=== PATIENT | female | born 1990 | race Caucasian/White ===

== ENCOUNTER 2020-03-14 13:55 | Outpatient (RCR) | payer BC, SELFPAY ==
[2020-03-14 14:45] LABS: Beta HCG Quantitative < 2.39 mIU/ML
== END 2020-06-05 23:59 | disposition home or self-care (01) ==
LOC: ANHLAB 13:55
PROVIDERS: Visit Provider Obstetrics & Gynecology
DX: O26.851 Spotting complicating pregnancy, first trimester (principal); Z3A.01 Less than 8 weeks gestation of pregnancy
CPT/HCPCS: 36415; 84702

== ENCOUNTER → 2020-12-20 13:42 | Outpatient (CLI) | payer BC, SELFPAY ==
--- NOTE | ~2020-12-20 | US_ITS ---
EXAMINATION: US OB transvaginal DATE: 12/20/2020 14:10 INDICATION: First trimester dating TECHNIQUE: Real-time pelvic transabdominal and transvaginal ultrasound was performed. COMPARISON: None. FINDINGS: The uterus measures 7.7 x 3.7 x 4.9 cm. There is an intrauterine gestational sac. The mean sac diameter is 1 cm , which correlates with an estimated gestational age of 5 weeks and 1 day(s) (+ /-) 3 day(s) with an estimated delivery date of 08/21/2021. A yolk sac is identified. The pole is not yet seen. The right ovary measures 2.7 x 1.4 x 2.4 cm. The left ovary measures 2.5 x 1.0 x 1.9 cm. There is nor mal vascular flow in the ovaries. There is no free fluid in the pelvis. IMPRESSION: 1. Intrauterine gestational sac with an estimated gestational age of 5 weeks and 1 day(s) (+/-) 3 day (s) and an estimated delivery date of 08/21/2021 based on mean sac diameter. pole not yet visuali zed, likely due to early gestation. Reviewed, dictated and finalized at location A. IMPRESSION: 1. Intrauterine gestational sac with an estimated gestational age of 5 weeks an d 1 day(s) (+/-) 3 day(s) and an estimated delivery date of 08/21/2021 based on m karli sac diameter. pole not yet visualized, likely due to early gestation.
== END ==
PROVIDERS: Visit Provider Obstetrics & Gynecology
DX: Z34.91 Encounter for supervision of normal pregnancy, unspecified, first trimester (principal); Z3A.01 Less than 8 weeks gestation of pregnancy
CPT/HCPCS: 76817

== ENCOUNTER → 2020-12-29 14:48 | Outpatient (CLI) | payer BC, SELFPAY ==
--- NOTE | ~2020-12-29 | US_ITS ---
EXAMINATION: US OB transvaginal EXAM DATE: 12/29/2020 15:13 INDICATION: , check viability. 1st trimester. TECHNIQUE: Pelvic obstetrical transabdominal sonogram was performed by a technologist. There are mu ltiple grayscale and Doppler images available for interpretation. Comparison is made to prior examina tion from 12/20/2020. FINDINGS: Uterus measures 8.4 x 4.3 x 5.6 cm. There is intrauterine gestation sac. pole with heart rate confirmed at 152 beats per minute. The 8 mm crown-rump length corresponds to estimated ge stational age by ultrasound of 6 weeks 5 days. Yolk sac is identified. There is no sonographic georgi dence of subchorionic hemorrhage. Right ovary morphologically normal, left not visualized. IMPRESSION: Early live intrauterine gestation, age by CRL 6 weeks 5 days. Reviewed, dictated and finalized at location A.
== END ==
PROVIDERS: Visit Provider Nurse Practitioner
DX: Z36.9 Encounter for antenatal screening, unspecified (principal); Z3A.01 Less than 8 weeks gestation of pregnancy
CPT/HCPCS: 76817

== ENCOUNTER 2021-06-21 15:41 | Outpatient (CLI) | payer BC, SELFPAY ==
[2021-06-21 16:03] VITALS: BP 145/90; PULSE 114
[2021-06-21 16:13] VITALS: TEMP 37.5
[2021-06-21 16:13] LABS: Basophils Percent Auto 0.3 % (0.2-1.2); Eosinophils Absolute Auto 0.1 K/mm3 (0-0.3); Eosinophils Percent Auto 0.7 % (0-4.4); Hematocrit 40.7 % (37.0-47.0); Hemoglobin 13.6 g/dL (12.0-15.0); Immature Granulocyte Absolute 0.12 K/mm3 (0.00-0.031); Immature Granulocyte Percent A 0.9 % (0-0.5); Lymphocytes Absolute Auto 2.09 K/mm3 (0.9-3.2); Mean Corpuscular HGB Conc 33.4 g/dl (32-36); Mean Corpuscular Hemoglobin 28.9 pg (26-34); Mean Corpuscular Volume 86.6 fl (80-100); Mean Platelet Volume 10.6 fl (7.4-10.4); Monocytes Absolute Auto 1.2 K/mm3 (0.1-0.6); Monocytes Percent Auto 8.4 % (2.6-8.5); Neutrophils Absolute Auto 10.4 K/mm3 (1.3-6.7); Neutrophils Percent Auto 74.7 % (45.5-73.1); Platelet Count Result 225 k/mm3 (150-375); Red Cell Distribution Width 13.6 % (11.5-14.5)
[2021-06-21 16:16] VITALS: BP 148/81; PULSE 99
[2021-06-21 16:20] LABS: Creatinine Urine 18.9 mg/dL; Total Protein Urine Random 13 mg/dL; Ur Ttl Prot Creatinine Ratio 0.69 mg/mg (0-0.20)
[2021-06-21 16:22] LABS: Add Urine Microscopic? YES; Appearance Urine Cloudy (Clear); Bacteria Urine 1+ /hpf; Bilirubin Urine Negative (Negative); Blood Urine Negative (Negative); Color Urine Straw (Yellow); Glucose Urine UA Negative (Negative); Ketones Urine Negative (Negative); Leukocyte Esterase Ur Trace LEU/UL (NEGATIVE); Nitrate Urine Negative (Negative); Protein Urine Negative (Negative); RBC Urine 0-2 /hpf (0-2); Squamous Epithelial Cell Urine Occasional /hpf (Few); Urobilinogen Urine Negative mg/dL (<2.0); WBC Urine 0-3 /hpf (0-3)
[2021-06-21 16:25] LABS: Alanine Aminotransferase 38 U/L (4-35); Albumin Level 3.8 g/dL (3.5-5.1); Alkaline Phosphatase 77 U/L (38-126); Anion Gap 10 mmol/L (8-16); Aspartate Amino Transferase 33 U/L (14-36); Bilirubin,Total 0.4 mg/dL (0.2-1.3); Blood Urea Nitrogen 6 mg/dL (7-17); Calcium 9.1 mg/dL (8.4-10.2); Carbon Dioxide 24 mmol/L (22-30); Chloride 102 mmol/L (98-107); Estimated Glomerular Filt Rate > 60; Glucose 94 mg/dL (65-110); Potassium 3.9 mmol/L (3.4-5.0); Sodium 136 mmol/L (137-145); Uric Acid 4.2 mg/dL (2.5-7.5)
[2021-06-21 16:31] VITALS: BP 141/77; PULSE 94
[2021-06-21 16:42] LABS: Specific Grav Ur 1.003 (1.001-1.035)
[2021-06-21 16:46] VITALS: BP 147/72; PULSE 96
--- NOTE | 2021-06-21 16:51 | PC.NURSE ---
called,read labs and bp's. Orders received for 24hr urine and discharge home on bedrest.
[2021-06-21 16:57] VITALS: BP 145/90; PULSE 114
== END 2021-06-21 17:16 | disposition home or self-care (01) ==
LOC: ANHOBOP 15:47 → ANHOBPP 15:49
PROVIDERS: Visit Provider Obstetrics & Gynecology
DX: O16.3 Unspecified maternal hypertension, third trimester (principal); Z3A.31 31 weeks gestation of pregnancy
CPT/HCPCS: 36415; 59025; 80053; 81001; 82570; 84156; 84550; 85025; 87086; 99199

== ENCOUNTER 2021-06-22 16:42 | Outpatient (NON) | payer BC, SELFPAY ==
[2021-06-22 16:54] VITALS: BMI 38.7
[2021-06-22 17:27] LABS: Collection Time Urine 24 HOURS; Total Volume 24 Hour Urine 3300 ml
[2021-06-22 17:33] LABS: Patient Weight 240 Lbs; Specific Gravity Ur 1.015
[2021-06-22 18:02] LABS: Creatinine Clearance Urine 201.8 ml/min (75-125); Creatinine Urine 65.8 mg/dL; Total Protein Urine 24 Hr 363 mg/24hr (28-141); Total Protein Urine Random 11 mg/dL
== END 2021-06-22 16:43 | disposition home or self-care (01) ==
PROVIDERS: Visit Provider Obstetrics & Gynecology
DX: Z34.91 Encounter for supervision of normal pregnancy, unspecified, first trimester (principal); Z3A.01 Less than 8 weeks gestation of pregnancy
CPT/HCPCS: 81050; 82575; 84156

== ENCOUNTER 2021-07-08 07:22 | Inpatient (IN) | payer BC, SELFPAY ==
[2021-07-08] VITALS (148 sets, daily range): BP systolic 101–152; BP diastolic 52–105; PULSE 85–141; RESP 18; TEMP 36.8–37.4; O2SAT 95–100; BMI 39.6
[2021-07-08 08:31] LABS: Basophils Percent Auto 0.2 % (0.2-1.2); Eosinophils Absolute Auto 0.1 K/mm3 (0-0.3); Eosinophils Percent Auto 0.6 % (0-4.4); Hematocrit 38.1 % (37.0-47.0); Immature Granulocyte Absolute 0.08 K/mm3 (0.00-0.031); Immature Granulocyte Percent A 0.6 % (0-0.5); Lymphocytes Percent Auto 10.3 % (18.3-44.2); Mean Corpuscular HGB Conc 34.1 g/dl (32-36); Mean Corpuscular Hemoglobin 29.3 pg (26-34); Mean Platelet Volume 10.7 fl (7.4-10.4); Monocytes Absolute Auto 0.8 K/mm3 (0.1-0.6); Monocytes Percent Auto 6.5 % (2.6-8.5); Neutrophils Absolute Auto 10.3 K/mm3 (1.3-6.7); Neutrophils Percent Auto 81.8 % (45.5-73.1); Platelet Count Result 196 k/mm3 (150-375); Red Blood Count 4.43 M/mm3 (4.2-5.4); Red Cell Distribution Width 13.4 % (11.5-14.5); White Blood Count 12.6 K/mm3 (4.5-10.0)
[2021-07-08] MEDS: LACTATED RINGERS 1,000 ML 125 ML IV CONT ×2 (08:40→20:35)
[2021-07-08] MEDS: AMPICILLIN 2 GM/NS 100 ML 2 GM/100 ML BAG IVPB (08:40)
[2021-07-08 08:48] LABS: Alanine Aminotransferase 24 U/L (4-35); Albumin Level 3.5 g/dL (3.5-5.1); Alkaline Phosphatase 103 U/L (38-126); Anion Gap 8 mmol/L (8-16); Aspartate Amino Transferase 25 U/L (14-36); Bilirubin,Total 0.2 mg/dL (0.2-1.3); Blood Urea Nitrogen 4 mg/dL (7-17); Calcium 8.8 mg/dL (8.4-10.2); Carbon Dioxide 21 mmol/L (22-30); Chloride 105 mmol/L (98-107); Estimated CRCL calculation 170 ml/min; Estimated Glomerular Filt Rate > 60; Glucose 120 mg/dL (65-110); Potassium 3.9 mmol/L (3.4-5.0); Sodium 134 mmol/L (137-145); Uric Acid 4.3 mg/dL (2.5-7.5)
--- NOTE | 2021-07-08 09:10 | LDADM ---
This patient, Mague Veras, was admitted to Labor/Delivery/Recovery 104 on 07/08/21 at 07:22. Plans for labor, pain management and were discussed with patient. Patient/family oriented to hospital policies and general routines including ID bracelet, bed and alarms, pain management, procedures, bathroom and other care routines, personal items, smoking policy, room service/diet and guest tray routines, security routines, call light and visiting hours. Patient/Family are encouraged to report perceived risks to care and to ask questions if they do not understand what they are told or what they should do. See OBIX for further documentation.
[2021-07-08] MEDS: BETAMETHASONE SOD PHOS/ACETATE 30 MG/5 ML VIAL 12 MG IM (11:31)
--- NOTE | 2021-07-08 11:32 | WPDOBADMIT ---
Obstetrics - Admit Note Admission Note: record reviewed. No pertinent additions to the history and/or any subsequent changes in the physical findings that are not consistent with the expected course of the were found. Patient admitted SROM clear fluid on 07/08/21. Reviewed with patient prematurity and risk of infection with rupture. Patient agrees to steroids with Induction s/p dose. Will give antibiotics for GBS prophylaxis. Additions to the history and/or subsequent changes in the physical findings follow. None.
[2021-07-08] MEDS: AMPICILLIN 1 GM/NS 50 ML 1 GM/50 ML BAG IVPB ×3 (12:29→21:32)
[2021-07-08] MEDS: OXYTOCIN 30 UNITS/NS 500 ML 30 UNITS/500 ML BAG 6 UNITS IV CONT (12:29)
[2021-07-08 13:13] LABS: EDCOVIDSCREEN Negative (Negative)
--- NOTE | 2021-07-08 15:34 | WPDANESEPP ---
Anes - Eval Pre Procedure Procedure: Labor Epidural Date/Time: 07/08/21 15:34 Surgeon: Anjelica Preop Diagnosis: Labor Pain Pre Op Diagnosis: Leaking Patient Data Age: 31 Gender: F Height: 1.68 m Weight: 111.3 kg Last Vital Signs Temp 37.1 C 07/08/21 15:29 Pulse 110 H 07/08/21 15:30 BP 149/63 H 07/08/21 15:30 Pulse Ox 97 07/08/21 15:30 Allergies Allergy/AdvReac Type Severity Reaction Status Date / Time No Known Allergies Allergy Verified 07/08/21 08:35 Home Medications Medication Instructions Recorded Confirmed Type ergocalciferol (vitamin D2) 50,000 unit PO WEEKLY 07/08/21 07/08/21 History Laboratory Tests 07/08/21 07/08/21 07/08/21 08:20 08:20 08:20 WBC 12.6 K/mm3 H K/mm3 (4.5-10.0) RBC 4.43 M/mm3 M/mm3 (4.2-5.4) Hgb 13.0 g/dL g/dL (12.0-15.0) Hct 38.1 % % (37.0-47.0) MCV 86.0 fl fl (80-100) MCH 29.3 pg pg (26-34) MCHC 34.1 g/dl g/dl (32-36) RDW 13.4 % % (11.5-14.5) Plt Count 196 k/mm3 k/mm3 (150-375) MPV 10.7 fl H fl (7.4-10.4) Immature Gran % (Auto) 0.6 % H % (0-0.5) Neut % (Auto) 81.8 % H % (45.5-73.1) Lymph % (Auto) 10.3 % L % (18.3-44.2) [place]dwell % (Auto) 6.5 % % (2.6-8.5) Eos % (Auto) 0.6 % % (0-4.4) Baso % (Auto) 0.2 % % (0.2-1.2) Lymph # (Auto) 1.30 K/mm3 K/mm3 (0.9-3.2) [place]dwell # (Auto) 0.8 K/mm3 H K/mm3 (0.1-0.6) Eos # (Auto) 0.1 K/mm3 K/mm3 (0-0.3) Baso # (Auto) 0.0 K/mm3 K/mm3 (0.0-0.1) Abs Immat Gran (auto) 0.08 K/mm3 H K/mm3 (0.00-0.031) Absolute Neuts (auto) 10.3 K/mm3 H K/mm3 (1.3-6.7) Absolute Nucleated RBC 0.0 K/mm3 K/mm3 (0.0-0.012) Nucleated RBC % 0.0 % % (0.0-0.2) Sodium Potassium Chloride Carbon Dioxide Anion Gap BUN Creatinine Estim Creat Clear Calc Estimated GFR Glucose Uric Acid Cancelled Calcium Total Bilirubin AST ALT Alkaline Phosphatase Total Protein Albumin RPR Pending SARS-CoV-2 IgG/IgM Ag?Rapid Blood Type Antibody Screen 07/08/21 07/08/21 07/08/21 08:20 08:20 12:21 WBC RBC Hgb Hct MCV MCH MCHC RDW Plt Count MPV Immature Gran % (Auto) Neut % (Auto) Lymph % (Auto) [place]dwell % (Auto) Eos % (Auto) Baso % (Auto) Lymph # (Auto) Caldwell # (Auto) Eos # (Auto) Baso # (Auto) Abs Immat Gran (auto) Absolute Neuts (auto) Absolute Nucleated RBC Nucleated RBC % Sodium 134 mmol/L L mmol/L (137-145) Potassium 3.9 mmol/L mmol/L (3.4-5.0) Chloride 105 mmol/L mmol/L (98-107) Carbon Dioxide 21 mmol/L L mmol/L (22-30) Anion Gap 8 mmol/L mmol/L (8-16) BUN 4 mg/dL L mg/dL (7-17) Creatinine 0.50 mg/dL L mg/dL (0.7-1.0) Estim Creat Clear Calc 170 ml/min ml/min Estimated GFR > 60 (59 - ) Glucose 120 mg/dL H mg/dL (65-110) Uric Acid 4.3 mg/dL mg/dL (2.5-7.5) Calcium 8.8 mg/dL mg/dL (8.4-10.2) Total Bilirubin 0.2 mg/dL mg/dL (0.2-1.3) AST 25 U/L U/L (14-36) ALT 24 U/L U/L (4-35) Alkaline Phosphatase 103 U/L U/L (38-126) Total Protein 6.0 g/dL L g/dL (6.3-8.2) Albumin 3.5 g/dL g/dL (3.5-5.1) RPR SARS-CoV-2 IgG/IgM Ag?Rapid N
[2021-07-08] MEDS: OXYTOCIN 30 UNITS/NS 500 ML 30 UNITS/500 ML BAG 125 UNITS IV CONT (23:46)
[2021-07-09] VITALS (12 sets, daily range): BP systolic 124–142; BP diastolic 60–84; PULSE 78–113; RESP 16–18; TEMP 36.6–36.9; O2SAT 97–100
--- NOTE | 2021-07-09 00:47 | P.PCNOB_ITS ---
OB - Delivery Note Procedure Delivery date: 07/09/21 Procedure: events: Labor < 37 Weeks, Induced HTN, Labor Induction and Premature Rupture of Membrane Intrapartal events: None Induction method: per pitocin protocol Delivery monitor: none Route of delivery: Laceration Description: Vaginal - 2nd Degree Delivery repair: vicryl Specimen: Yes Quantitative Blood Loss (ml): 120 Anesthesia type: Epidural Disposition: observation [place] Baby Date of : 07/08/21 Time of : 23:15 Weeks of gestation at delivery: 34 gender: Male Weight (pounds): 6 Weight (ounces): 1 presentation: vertex Placenta delivery description: Spontaneous cord vessel description: 3 Vessels
[2021-07-09] MEDS: WITCH HAZEL 40 PADS 1 PAD TOPICAL (02:03)
[2021-07-09] MEDS: BENZOCAINE 20% AER SPR (*SP) 56 GM CAN 1 SPRAY TOPICAL (02:03)
[2021-07-09] MEDS: ACETAMINOPHEN 325 MG TABLET 650 MG PO (02:10)
--- NOTE | 2021-07-09 02:37 | PC.NURSE ---
Patient transferred to post room #282 via wheelchair. Support person present. Oriented to unit, room, information board, and admission packet. Patient verbalizes understanding.
[2021-07-09 06:11] LABS: Rapid Plasma Reagin Non-Reactive (NonReactive)
--- NOTE | 2021-07-09 07:37 | WPDANLDPN2 ---
Anes-Prog Note L&D Date/Time: 07/09/21 07:37 Comfortable throughout: labor and delivery Neuraxial method: epidural Epidural/Spinal procedure site: clean & non-tender Neuro status: Neuro function grossly intact. Cardiovascular status: normal Respiratory status: normal Airway patency: baseline Mental status: baseline Post-Op hydration status: normal Vital Signs: Last Vital Signs Temp 36.7 C 07/09/21 02:45 Pulse 104 H 07/09/21 02:45 Resp 16 07/09/21 02:45 BP 135/68 07/09/21 02:45 Pulse Ox 100 07/08/21 23:16 Pain score (VAS): 0 I/O: Intake & Output 07/08/21 07/08/21 07/09/21 15:59 23:59 07:59 Intake Total 150 1600 1500 Output Total 1000 Balance 150 1600 500 Post-procedural complaints: none Patient feedback: Patient satisfied with anesthetic care.
[2021-07-09] MEDS: IBUPROFEN 600 MG TABLET PO (07:57)
[2021-07-09] MEDS: MULTIVIT/MIN/PREN/FOL AC/IRON TABLET 1 TAB PO (07:57)
--- NOTE | 2021-07-09 08:59 | PM.OBPNVD ---
OB - PN: Subj Subjective Date/time seen: 07/09/21 08:59 DOING OKAY TODAY BABY ON RESPIRATOR BUT STABLE OB - PN: Obj Data Labs CBC & Chem 7: 07/08/21 08:20 07/08/21 08:20 Labs: Laboratory Results - last 24 hr 07/08/21 07/08/21 07/08/21 08:20 08:20 12:21 RPR Non-reactive SARS-CoV-2 IgG/IgM Ag?Rapid Negative Blood Type A Positive Antibody Screen Negative OB - PN A/P Assessment and Plan (1) (normal spontaneous vaginal delivery): Code(s): O80 - Encounter for full-term uncomplicated delivery Status: Acute Assessment and Plan: CONTINUE WITH PP CARE MAY GO ON PASS LATER TODAY. Time Spent With Patient Time: Total time spent is greater than 50% in coordination of care (as documented) at patient's floor/unit and/or counseling patient: Exam Narrative: FF BELOW UMBILICUS
--- NOTE | 2021-07-09 10:15 | PC.NURSE ---
Consult with pt., discussed initiating pumping due to transfer. Mother states she will shower and call out when ready.
--- NOTE | 2021-07-09 13:00 | PC.NURSE ---
Mother called out wishing to initiate pumping. Breast pump provided due to mother's wishes. Instructions given on breast pump care and usage, pumping schedule, nipple care, and collection and storage of breast milk. Encouraged [id number], breast massage and manual expression to stimulate supply. Assessed patient for correct flange size, placement and draw. Patient verbalizes and demonstrates understanding of instructions. Discussed colostrum vs milk supply and mother may not see more than a few drops the first few days, milk should transition in by day 3 and she may see more volume pumped per session.
--- NOTE | 2021-07-09 15:48 | PC.NURSE ---
Pt. out on pass to visit baby with at 1400.
[2021-07-10] VITALS: BP 135/64
[2021-07-10 04:55] VITALS: BP 120/74
[2021-07-10 05:16] LABS: Hematocrit 32.9 % (37.0-47.0); Hemoglobin 11.1 g/dL (12.0-15.0)
[2021-07-10 07:30] VITALS: BP 130/71; PULSE 72; RESP 16; TEMP 36.3; O2SAT 99
--- NOTE | 2021-07-10 09:00 | PC.NURSE ---
Consult with pt., mother reports she has pumped every three hours as requested, mother denies difficulties or discomfort with pumping. Mother reports she has a Medela double electric pump for home use and [facility] has set her up with a pump at infant bedside. Reviewed engorgement/relief. Reviewed regular medications mother is taking. Information provided per [place]. Reviewed community resources on the [facility] website and in the Mom/Baby guide. Information on outpatient services provided and she may return here or call once infant is discharged as needed. Mother has no further questions at this time.
[2021-07-10] MEDS: MULTIVIT/MIN/PREN/FOL AC/IRON TABLET 1 TAB PO (10:38)
[2021-07-10] MEDS: DOCUSATE SODIUM 100 MG CAPSULE PO (10:38)
[2021-07-10] MEDS: IBUPROFEN 600 MG TABLET PO (10:38)
[2021-07-11 11:33] VITALS: BP 138/77; PULSE 88; RESP 20; TEMP 37.1; O2SAT 99
--- NOTE | 2021-07-14 16:55 | P.DS_ITS ---
DS: Admitting Diagnosis Discharge Date 07/10/21 Admitting Diagnosis Labor OB - DS: Summary OB Procedures : Ultrasound OB Procedures Intrapartum: Spontaneous Vag Delivery OB Procedures: : None Time Spent with Patient Time attestation: Total time spent providing and/or coordinating discharge services: Discharge Plan Discharge Attending physician on discharge: Navin Dejesus Discharging Clinician: Navin Dejesus Patient Disposition: Home, Self-Care Activity: may shower and pelvic rest Diet: as tolerated Discharge Instructions: Education: Mom and Baby Guide Given to: Mother Follow-Up: Call your delivering provider's office for an appointment to be seen in: 4 Weeks Mom should come to the [facility] for the follow-up appointment. Appointment Date/Time: Sunday, July 11, 2021 at 11:30 am What to expect at your follow-up visit: Physical Assessment Call [phone] if you are unable to keep your appointment time. BREAST CARE: * Wear a snug supportive bra. * For engorgement discomfort: Breast Feeding: * Apply warm moist washcloths * Express milk as needed to relieve engorgement * Wear loose clothing Bottle Feeding: * May apply ice packs * For sore nipples: * Identify correct latch-on * Apply warm moist washcloths before and after nursing * Air dry nipples after nursing * May apply Lansinoh cream to nipples EPISIOTOMY/PERINEAL CARE: * Until bleeding stops, use your constance bottle after urinating * Change your pad frequently throughout the day * You may take sitz baths several times a day (fill your bathtub with warm water and soak for 20 minutes.) Do NOT bathe in the water * No tub baths until seen by your physician - You may shower ACTIVITY: * Rest as much as possible. * Do not exercise or lift anything heavier than your baby (such as laundry or other children.) * Avoid stairs or driving as much as possible. * Do not put anything into the vagina. No douching, tampons, or sexual activity until seen by physician. NOTIFY PHYSICIAN IF YOU HAVE ANY QUESTIONS OR IF ANY OF THE FOLLOWING SYMPTOMS OCCUR: * If your episiotomy or incision becomes red, swollen, or more painful than what you have experienced in the hospital. * If your vaginal bleeding becomes foul smelling. * If your vaginal bleeding becomes more heavy than a period or if your bleeding changes from pink to bright red. However, you may pass an occasional walnut- sized clot once or twice for the first week . * If you experience a sharp, shooting pain in you calves. * If you discover a hard, reddened area on your breast or if you experience flu- like symptoms. DIET: * Eat regular, well-balanced meals. * Drink plenty of fluids daily. If , drink to thirst. Patient Instructions: Antibiotic Form Follow-up/Referrals: Navin Dejesus MD [Physician] - Discharge Medications: Continued ergocalciferol (vitamin D2) 1,250 mcg (50,000 unit) capsule 50,000 unit PO WEEKLY RF: 0 Date of admission: 07/08/21 07:22 Primary Care Provider: PHYSICIAN,FU[employer] SALES REPRESENTATIVE Admitting Provider: Navin Dejesus Attending physician on admission: Navin Dejesus Condition: Stable
== END 2021-07-10 11:47 | disposition home or self-care (01) | DRG 807 ==
LOC: ANHLDR 07:55 → ANHOB2 07-09 02:40
PROVIDERS: Admitting Provider Obstetrics & Gynecology; Visit Provider Obstetrics & Gynecology
DX: O60.14X0 Preterm labor third trimester with preterm delivery third trimester, not applicable or unspecified (principal); Z37.0 Single live birth; O13.4 Gestational [pregnancy-induced] hypertension without significant proteinuria, complicating childbirth; O42.913 Preterm premature rupture of membranes, unspecified as to length of time between rupture and onset of labor, third trimester; O70.1 Second degree perineal laceration during delivery; Z3A.34 34 weeks gestation of pregnancy; Z20.822 Contact with and (suspected) exposure to COVID-19
CPT/HCPCS: 36415; 80053; 84112; 84550; 85014; 85018; 85025; 86592; 86850; 86900; 86901; 87426; A9270; C9803; J0290; J0456; J0702; J2590; J2795; J7120

== ENCOUNTER 2022-06-20 12:21 | Outpatient (CLI) | payer BC, SELFPAY ==
[2022-06-20 13:00] LABS: Alanine Aminotransferase 28 U/L (6-35); Albumin Level 4.5 g/dL (3.5-5.1); Alkaline Phosphatase 60 U/L (38-126); Anion Gap 12 mmol/L (8-16); Aspartate Amino Transferase 29 U/L (14-36); Bilirubin,Total 0.3 mg/dL (0.2-1.3); Blood Urea Nitrogen 10 mg/dL (7-17); Calcium 8.3 mg/dL (8.4-10.2); Carbon Dioxide 26 mmol/L (22-30); Chloride 100 mmol/L (98-107); Cholesterol 210 mg/dL (0-200); Estimated Glomerular Filt Rate > 60; Glucose 97 mg/dL (65-110); HDL Direct 48 mg/dL; Potassium 3.7 mmol/L (3.4-5.0); Sodium 138 mmol/L (137-145); Triglycerides 89 mg/dL (<150)
[2022-06-20 13:11] LABS: LDL Cholesterol Direct 128 mg/dL
[2022-06-20 13:16] LABS: Beta HCG Quantitative < 2.39 mIU/ML
[2022-06-20 13:25] LABS: Hemoglobin A1C 5.7 % (<5.7)
[2022-06-24 15:54] LABS: LH 9.3 mIU/mL (***); Progesterone <0.2 ng/mL (***)
[2022-06-25 12:04] LABS: Testosterone Total 58 ng/dL (2-45)
[2022-06-25 20:01] LABS: FSH 7.2 mIU/mL (***)
== END 2022-06-20 12:22 | disposition home or self-care (01) ==
LOC: ANHLAB 12:22
PROVIDERS: Visit Provider Obstetrics & Gynecology
DX: N92.6 Irregular menstruation, unspecified (principal)
CPT/HCPCS: 36415; 80053; 80061; 83001; 83002; 83036; 83498; 84144; 84402; 84403; 84702

== ENCOUNTER 2022-07-01 08:26 | Outpatient (CLI) | payer BC, SELFPAY ==
[2022-07-03 07:15] LABS: Thyroid Stimulating Hormone 0.666 uIU/mL (0.465-4.680)
[2022-07-04 11:23] LABS: Insulin Level Total 13.1 uIU/mL (<=19.6)
== END 2022-07-01 08:27 | disposition home or self-care (01) ==
PROVIDERS: Visit Provider Obstetrics & Gynecology
DX: R63.5 Abnormal weight gain (principal); E78.9 Disorder of lipoprotein metabolism, unspecified; R79.89 Other specified abnormal findings of blood chemistry
CPT/HCPCS: 36415; 83525; 84443

== ENCOUNTER 2022-08-23 14:00 | Emergency (ER) | payer BC, SELFPAY ==
[2022-08-23 14:30] VITALS: BP 131/81; PULSE 88; RESP 18; TEMP 36.6; O2SAT 100
--- NOTE | 2022-08-23 14:49 | ED.URI ---
HPI - URI/Sore Throat General Chief Complaint: Upper Respiratory Infection Stated Complaint: sorethroat,congestion Time Seen by Provider: 08/23/22 14:49 Source: patient and RN notes reviewed Mode of arrival: ambulatory Limitations: no limitations History of Present Illness HPI Narrative: 32-year-old female presented for complaint of sinus pressure, congestion, and sore throat over the last 3 weeks. She has taken Tylenol and ibuprofen without relief. States her 1-year-old had similar symptoms at the onset of hers, but tested negative for everything. She denies shortness of breath, nausea, vomiting, diarrhea, fevers or chills at this point. MD elicited complaint: cough Related Data Home Medications Medication Instructions Recorded Confirmed drospirenone (contraceptive) 4 mg 1 tablet PO DAILY 06/20/22 08/23/22 (28) tablet (Slynd) Allergies Allergy/AdvReac Type Severity Reaction Status Date / Time No Known Allergies Allergy Verified 08/23/22 14:44 Review of Systems Review of Systems: Per HPI [facility] Past Medical History Medical History Allergies History of miscarriage (normal spontaneous vaginal delivery) Vaginal delivery Surgical History Surgical History [place] teeth removed Family History Family History Grandparent Cerebrovascular accident Family history of Alzheimer's disease Family history of coronary artery disease Diabetes mellitus Hypertension Family history of type 2 diabetes mellitus Other Alcoholism Heart disease Social History Social History Smoking status: Former smoker Second hand tobacco smoke exposure: No Smoking end date: 08/18/20 Alcohol intake: current Substance use: never Substance use type: does not use Spiritual care concerns: No Exam Narrative: GENERAL: Ill-appearing, nontoxic EYES: PERRLA, conjunctivae clear ENT: Mucous membranes moist. TM pearly cho with dull light reflex bilaterally; no tragal tenderness. Oropharynx erythematous without lesions or exudate, no drooling, no hoarseness, no trismus, uvula midline. CHEST: Clear to auscultation, breath sounds equal. HEART: Regular rate and rhythm. No murmur heard. SKIN: Warm, dry, no rash. NEURO: Alert and oriented x3. PSYCH: Normal mood and affect Course Course Emergency Course: Patient is aware of diagnosis, understands and agrees to treatment plan. Anticipatory guidance given. Patient agrees to follow-up as directed and is aware of reasons to seek care at the emergency department. Portions of this record may have been created with voice recognition software Level of Care: Express Care Visit Vital Signs Vital signs: Vital Signs Temperature 97.9 F 08/23/22 14:30 Pulse Rate 88 08/23/22 14:30 Respiratory Rate 18 08/23/22 14:30 Blood Pressure 131/81 08/23/22 14:30 Pulse Oximetry 100 08/23/22 14:30 Oxygen Delivery Room Air 08/23/22 14:30 Temperature 97.9 F 08/23/22 14:30 Pulse Rate 88 08/23/22 14:30 Respiratory Rate 18 08/23/22 14:30 Blood Pressure 131/81 08/23/22 14:30 Pulse Oximetry 100 08/23/22 14:30 Oxygen Delivery Room Air 08/23/22 14:30 reviewed MDM - URI/Sore Throat MDM Narrative Medical decision making narrative: Advised supportive measures and signs/symptoms to go to the ER. Pt is appropriate for outpt treatment and f/u. Differential Diagnosis Differential diagnosis: Likely upper respiratory infection, sinusitis and viral infection Discharge Plan Discharge Clinical Impression: Upper respiratory infection Patient Disposition: Home, Self-Care Condition: Stable Instructions: Antibiotic Form, Rhinosinusitis (ED) Additional Instructions: Take medication as directed Recomme
== END 2022-08-23 14:53 | disposition home or self-care (01) ==
PROVIDERS: Emergency Provider Nurse Practitioner Family; PCP Family Medicine
DX: J06.9 Acute upper respiratory infection, unspecified (principal); Z87.891 Personal history of nicotine dependence
CPT/HCPCS: 99213; G0463

== ENCOUNTER 2022-09-20 08:14 | Outpatient (CLI) | payer BC, SELFPAY ==
[2022-09-20 08:42] LABS: Cholesterol 189 mg/dL (0-200); HDL Direct 39 mg/dL; Triglycerides 100 mg/dL (<150)
[2022-09-20 08:49] LABS: Hemoglobin A1C 5.3 % (<5.7)
[2022-09-20 08:52] LABS: LDL Cholesterol Direct 105 mg/dL
[2022-09-30 12:32] LABS: Testosterone Total 31 ng/dL (2-45)
== END 2022-09-20 08:15 | disposition home or self-care (01) ==
PROVIDERS: Visit Provider Obstetrics & Gynecology
DX: N92.6 Irregular menstruation, unspecified (principal)
CPT/HCPCS: 36415; 80061; 83036; 84403

== ENCOUNTER 2023-01-05 11:07 | Emergency (ER) | payer BC, SELFPAY ==
--- NOTE | ~2023-01-05 | XR_ITS ---
EXAMINATION: XR foot LT min 3V DATE: 01/05/2023 11:42 INDICATION: Left foot pain TECHNIQUE: Dorsoplantar, lateral, and 2 oblique views of the left foot were obtained. COMPARISON: None. FINDINGS: There is dorsolateral soft tissue swelling of the midfoot. Bone alignment is normal. There is no fracture. The joint spaces are normal. IMPRESSION: 1. Soft tissue swelling of the foot without acute osseous abnormality. Reviewed, dictated and finalized at location A.
--- NOTE | 2023-01-05 11:28 | ED.LOWEXIN ---
HPI - Extremity Injury (Lower) General Chief Complaint: Extremity Injury, Lower Stated Complaint: Left Ankle Pain Time Seen by Provider: 01/05/23 11:29 Source: patient Mode of arrival: ambulatory Limitations: no limitations History of Present Illness HPI Narrative: Saundra is a 32-year-old female patient presenting to clinic today with complaints of left sided foot pain. She reports that she was coming down a slide at a playground and injured her left foot. Has pain over the dorsal lateral aspect of the foot. Denies any ankle pain. Most pain is with ambulation. Related Data Allergies Allergy/AdvReac Type Severity Reaction Status Date / Time No Known Allergies Allergy Verified 01/05/23 11:26 Review of Systems Review of Systems: Pertinent positives per HPI. Patient denies any fever, chills, rash, headache, visual changes, dizziness, cough, runny nose, sore throat, shortness of breath, chest pain, palpitations, nausea, vomiting, diarrhea, constipation, abdominal pain, or any urinary issues. [facility] Past Medical History Medical History Allergies History of miscarriage (normal spontaneous vaginal delivery) Vaginal delivery Surgical History Surgical History [place] teeth removed Family History Family History Grandparent Cerebrovascular accident Family history of Alzheimer's disease Family history of coronary artery disease Diabetes mellitus Hypertension Family history of type 2 diabetes mellitus Other Alcoholism Heart disease Social History Social History Smoking status: Former smoker Second hand tobacco smoke exposure: No Smoking end date: 08/18/20 Alcohol intake: current Substance use: never Substance use type: does not use Spiritual care concerns: No Comments At the time of my signature, I reviewed and agree with the nursing past medical, surgical, social, and family history. There is no relevant family history pertinent to the patient complaint. Exam Narrative: At the time of visit patient is resting comfortably on the exam table. X-ray of the left foot was performed was negative for any fracture. Jean [place] wrap was applied and sensation circulation and motion was within normal limits after application. Supportive measures were discussed with the patient she voiced understanding discharge instructions agrees to treatment plan. Course Course Emergency Course: Portions of this record may have been created with voice recognition software. Level of Care: Express Care Visit Vital Signs Vital signs: Vital signs reviewed MDM - Extremity Injury (Lower) MDM Narrative Medical decision making narrative: At the time of visit patient is resting on the exam table. X-ray was performed of the left foot was negative for any sign of fracture or malalignment. I suspect patient has a soft tissue injury/foot contusion. Supportive measures were discussed with the patient she voiced understanding discharge instructions agrees to treatment plan. Differential Diagnosis Differential diagnosis: Likely fracture of toe and other (Foot fracture, foot sprain, soft tissue injury, foot contusion) Imaging Data Radiologist's impression: Close Foot X-Ray (Signed) Juan Sawyer - 01/05/23 [facility] [address] XRay Report Signed Patient: Mague Veras : 1990 MR#: [id number] Age/Sex: 32 / F Acct:[id number] Loc: [facility]? ? ADM Date: 01/05/23Attending Dr: Ordering Physician: Herson Vann APRN Date of Service: 01/05/23 Procedure(s): XR foot LT min 3V Accession Number(s): [id number] cc: Herson Vann
[2023-01-05 11:29] VITALS: BP 142/82; PULSE 90; RESP 16; TEMP 36.9; O2SAT 100
== END 2023-01-05 12:03 | disposition home or self-care (01) ==
PROVIDERS: Emergency Provider Nurse Practitioner Family; PCP Registered Nurse
DX: S90.32XA Contusion of left foot, initial encounter (principal); X58.XXXA Exposure to other specified factors, initial encounter; Y93.89 Activity, other specified; Y92.830 Public park as the place of occurrence of the external cause; Z87.891 Personal history of nicotine dependence
CPT/HCPCS: 73630; 99213; G0463

== ENCOUNTER 2023-10-01 08:12 | Emergency (ER) | payer BC, SELFPAY ==
--- NOTE | 2023-10-01 08:13 | ED.URI ---
HPI - URI/Sore Throat General Chief Complaint: Upper Respiratory Infection Stated Complaint: Sore Throat, Bodyache, Sinus Pressure Time Seen by Provider: 10/01/23 08:13 Source: patient Mode of arrival: ambulatory Limitations: no limitations History of Present Illness HPI Narrative: Mague is a 33-year-old female patient presenting to the clinic today with complaints of sore throat, body aches, and sinus pressure x1 day.. She reports no known fever, chills, chest pain, nasal congestion, or shortness of breath. MD elicited complaint: sore throat and nasal congestion Related Data Home Medications Medication Instructions Recorded Confirmed multivitamin (Daily Multi-Vitamin 1 tablet PO DAILY 04/08/23 10/01/23 tablet) Allergies Allergy/AdvReac Type Severity Reaction Status Date / Time No Known Allergies Allergy Verified 10/01/23 08:21 Review of Systems Review of Systems: Pertinent positives per HPI. Patient denies any fever, chills, rash, headache, visual changes, dizziness, cough, shortness of breath, chest pain, palpitations, nausea, vomiting, diarrhea, constipation, abdominal pain, or any urinary issues. [facility] Past Medical History Medical History Allergies History of miscarriage (normal spontaneous vaginal delivery) Vaginal delivery Surgical History Surgical History [place] teeth removed Family History Family History Grandparent Cerebrovascular accident Family history of Alzheimer's disease Family history of coronary artery disease Diabetes mellitus Hypertension Family history of type 2 diabetes mellitus Other Alcoholism Heart disease Social History Social History Smoking status: Former smoker Second hand tobacco smoke exposure: No Smoking end date: 08/18/20 Alcohol intake: current Substance use: never Substance use type: does not use Lack of Transportation: No Lack of Food: Never True Current Housing: I Have Housing Concerned About Future Housing: No Difficulty Paying Gas/Electric Bills: No Difficulty Paying for Meds: No Currently Unemployed: No Education: Master's Degree or Higher Living arrangements: with family Occupation/Education: occupation Gender identity (if verbalized by the patient): Female Sexual Orientation (if Verbalized by the Patient): Straight or Heterosexual Spiritual care concerns: No Comments At the time of my signature, I reviewed and agree with the nursing past medical, surgical, social, and family history. There is no relevant family history pertinent to the patient complaint. Exam Narrative: General: Well-developed, well nourished, in no apparent distress Head: Normocephalic, atraumatic Eyes: Pupils equally round and reactive to light bilaterally, EOM intact, sclera and conjunctive clear, no discharge, lids normal Ears: TMs intact and clear, ear canals clear, no drainage, grossly hearing normal. Nose: Nares patent, no discharge, no inflammation, no sinus tenderness. Mouth: Oral pharynx red with bilateral tonsillar enlargement without lesions or masses, good dentition, MMM. Neck: Supple, trachea midline, no enlargement of anterior or posterior cervical nodes, no thyroid masses or goiter palpable. Cardio: Regular rate and rhythm, s1 and s2 normal, no murmur appreciated. Resp: Clear to auscultation bilaterally, no rhonchi, rales, wheezing or rubs Course Course Emergency Course: Portions of this record may have been created with voice recognition software. Level of Care: Express Care Visit Vital Signs Vital signs: Vital signs reviewed MDM - URI/Sore Throat MDM Narrative Medical decision making narrative: At the time of visit patient is resting comfortably on the ex
[2023-10-01 08:27] VITALS: BP 117/73; PULSE 109; RESP 16; TEMP 36.4; O2SAT 99
== END 2023-10-01 08:31 | disposition home or self-care (01) ==
PROVIDERS: Emergency Provider Nurse Practitioner Family; PCP Registered Nurse
DX: J02.0 Streptococcal pharyngitis (principal); Z87.891 Personal history of nicotine dependence
CPT/HCPCS: 87880; 99213; G0463

== ENCOUNTER 2023-10-29 08:07 | Emergency (ER) | payer BC, SELFPAY ==
[2023-10-29 08:24] VITALS: BP 121/79; PULSE 81; RESP 16; TEMP 36.4; O2SAT 100
--- NOTE | 2023-10-29 08:35 | ED.URI ---
HPI - URI/Sore Throat General Chief Complaint: Upper Respiratory Infection Stated Complaint: sinus pressure Time Seen by Provider: 10/29/23 08:35 Source: patient and RN notes reviewed Mode of arrival: ambulatory Limitations: no limitations History of Present Illness HPI Narrative: 33 y/o female presented for c/o sinus pressure under eyes worsening x3 days. Endorses cold symptoms x 2 weeks, with brief improvement about -5 days ago before symptoms worsened. Denies cough, sob, wheezing, n/v/d/f/c. Taking afrin for symptoms x2 days. MD elicited complaint: cough Related Data Home Medications Medication Instructions Recorded Confirmed multivitamin (Daily Multi-Vitamin 1 tablet PO DAILY 04/08/23 10/29/23 tablet) Allergies Allergy/AdvReac Type Severity Reaction Status Date / Time No Known Allergies Allergy Verified 10/29/23 08:23 Review of Systems Review of Systems: CONSTITUTIONAL: Denies malaise, chills, sweats, fever EYES: Denies visual changes, redness, or discharge ENT: Reports rhinorrhea, congestion, sinus pain, denies otalgia, sore throat CARDIOVASCULAR: Denies chest pain, palpitations, edema RESPIRATORY: Denies cough, dyspnea GASTROINTESTINAL: Denies abdominal pain, nausea, vomiting, diarrhea SKIN: Denies rash or itching MUSCULOSKELETAL: Denies myalgia PMFSH Past Medical History Medical History Allergies History of miscarriage (normal spontaneous vaginal delivery) Vaginal delivery Surgical History Surgical History [place] teeth removed Family History Family History Grandparent Cerebrovascular accident Family history of Alzheimer's disease Family history of coronary artery disease Diabetes mellitus Hypertension Family history of type 2 diabetes mellitus Other Alcoholism Heart disease Social History Social History Smoking status: Former smoker Second hand tobacco smoke exposure: No Smoking end date: 08/18/20 Alcohol intake: current Substance use: never Substance use type: does not use Lack of Transportation: No Lack of Food: Never True Current Housing: I Have Housing Concerned About Future Housing: No Difficulty Paying Gas/Electric Bills: No Difficulty Paying for Meds: No Currently Unemployed: No Education: Master's Degree or Higher Living arrangements: with family Occupation/Education: occupation Gender identity (if verbalized by the patient): Female Sexual Orientation (if Verbalized by the Patient): Straight or Heterosexual Spiritual care concerns: No Exam Narrative: GENERAL: Mildly ill-appearing, nontoxic no acute distress. HEAD: Normocephalic EYES: PERRLA, conjunctivae clear ENT: Mucous membranes moist. Nasal congestion noted. Tenderness to maxillary sinuses with palpation. TMs pearly coh with dull light reflex bilaterally; no tragal tenderness. Oropharynx erythematous without lesions or exudate NECK: Supple. No lymphadenopathy CHEST: Clear to auscultation, breath sounds equal. HEART: Regular rate and rhythm. No murmur heard. SKIN: Warm, dry, no rash. NEURO: Alert and oriented x3. Course Course Emergency Course: Patient is aware of diagnosis, understands and agrees to treatment plan. Anticipatory guidance given. Patient agrees to follow-up as directed and is aware of reasons to seek care at the emergency department. Portions of this record may have been created with voice recognition software Level of Care: Express Care Visit Vital Signs Vital signs: Vital Signs Temperature 97.6 F 10/29/23 08:24 Pulse Rate 81 10/29/23 08:24 Respiratory Rate 16 10/29/23 08:24 Blood Pressure 121/79 10/29/23 08:24 Pulse Oximetry 100 10/29/23 08:24 Oxygen Delivery Room Air 10/29/23 08
== END 2023-10-29 08:52 | disposition home or self-care (01) ==
PROVIDERS: Emergency Provider Nurse Practitioner Family; PCP Registered Nurse
DX: J32.9 Chronic sinusitis, unspecified (principal); Z87.891 Personal history of nicotine dependence
CPT/HCPCS: 99213; G0463

== ENCOUNTER 2024-04-07 15:36 | Emergency (ER) | payer BC, SELFPAY ==
--- NOTE | 2024-04-07 15:43 | ED.URI ---
HPI - URI/Sore Throat General Chief Complaint: Upper Respiratory Infection Stated Complaint: cold symptoms Time Seen by Provider: 04/07/24 15:44 Source: patient Mode of arrival: ambulatory Limitations: no limitations History of Present Illness HPI Narrative: Mague is a 34-year-old female patient presenting to the clinic today with come complaints of sore throat, chills, and headache since last night. She reports she did feel feverish but did not checked her temperature. She has not checked herself for COVID. No known sick contacts. States she frequently gets strep and feels as though she has strep throat. MD elicited complaint: sore throat and other (Headache, chills) Related Data Home Medications Medication Instructions Recorded Confirmed vits 75-iron 28 mg-folic pkg PO 04/07/24 acid 800 mcg-omega3 440 mg oral pack Allergies Allergy/AdvReac Type Severity Reaction Status Date / Time No Known Allergies Allergy Verified 04/07/24 15:46 Review of Systems Review of Systems: Pertinent positives per HPI. Patient denies any fever, chills, rash, headache, visual changes, dizziness, cough, shortness of breath, chest pain, palpitations, nausea, vomiting, diarrhea, constipation, abdominal pain, or any urinary issues. [facility] Past Medical History Medical History Allergies History of miscarriage (normal spontaneous vaginal delivery) Vaginal delivery Surgical History Surgical History [place] teeth removed Family History Family History Grandparent Cerebrovascular accident Family history of Alzheimer's disease Family history of coronary artery disease Diabetes mellitus Hypertension Family history of type 2 diabetes mellitus Other Alcoholism Heart disease Social History Social History Smoking status: Former smoker Second hand tobacco smoke exposure: No Smoking end date: 08/18/20 Alcohol intake: current Substance use: never Substance use type: does not use Lack of Transportation: No Lack of Food: Never True Current Housing: I Have Housing Concerned About Future Housing: No Difficulty Paying Gas/Electric Bills: No Difficulty Paying for Meds: No Currently Unemployed: No Education: Master's Degree or Higher Living arrangements: with family Occupation/Education: occupation Gender identity (if verbalized by the patient): Female Sexual Orientation (if Verbalized by the Patient): Straight or Heterosexual Spiritual care concerns: No Comments At the time of my signature, I reviewed and agree with the nursing past medical, surgical, social, and family history. There is no relevant family history pertinent to the patient complaint. Exam Narrative: General: Well-developed, well nourished, in no apparent distress Head: Normocephalic, atraumatic Eyes: Pupils equally round and reactive to light bilaterally, EOM intact, sclera and conjunctive clear, no discharge, lids normal Ears: TMs intact and clear, ear canals clear, no drainage, grossly hearing normal. Nose: Nares patent, no discharge, no inflammation, no sinus tenderness. Mouth: Oral pharynx without lesions or masses, good dentition, MMM. Neck: Supple, trachea midline, no enlargement of anterior or posterior cervical nodes, no thyroid masses or goiter palpable. Cardio: Regular rate and rhythm, s1 and s2 normal, no murmur appreciated. Resp: Clear to auscultation bilaterally, no rhonchi, rales, wheezing or rubs Course Course Emergency Course: Portions of this record may have been created with voice recognition software. Level of Care: Express Care Visit Vital Signs Vital signs: Vital signs reviewed MDM - URI/Sore Throat MDM Narrative Medical decision
[2024-04-07 15:44] VITALS: BP 130/76; PULSE 101; RESP 18; TEMP 37.2; O2SAT 99
[2024-04-07 15:46] VITALS: BP 130/76; PULSE 101; RESP 18; TEMP 37.2; O2SAT 99
[2024-04-07 16:06] LABS: EDSTREPNEGPOS1 Negative
== END 2024-04-07 16:08 | disposition home or self-care (01) ==
PROVIDERS: Emergency Provider Nurse Practitioner Family
DX: J06.9 Acute upper respiratory infection, unspecified (principal); J02.9 Acute pharyngitis, unspecified; Z87.891 Personal history of nicotine dependence
CPT/HCPCS: 87081; 87880; 99213; G0463

== ENCOUNTER 2024-07-23 07:05 | Outpatient (CLI) | payer BC, SELFPAY ==
--- NOTE | ~2024-07-23 | MR_ITS ---
MRI of the left ankle Clinical history: Spontaneous rupture flexor tendons Technique: Coronal proton-density and proton-density fat-sat images, axial proton-density and proton- density fat-sat images, and sagittal proton-density and proton-density fat-sat images were acquired. Findings: Syndesmotic ligaments are intact. Anterior and posterior talofibular ligaments, and calcane ofibular ligament are intact. Deltoid ligament is intact. There is no osteochondral lesion of the talar dome. Probable focal chondroid lesion or postprocedural change at the distal fibula. The anterior process of the calcaneus is somewhat prominent in size, wi th extensive marrow edema. Possible nonunited fracture fragment. There is degenerative change at the articulation of the calcaneus in the cuboid dorsally. Medial flexor tendons, peroneal tendons, anterior extensor tendons, and Achilles tendon are intact. Plantar fascia intact. No soft tissue mass or fluid collection evident in the ankle. 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 There is also degenerative change at the dorsal aspect of the calcaneocu boid reticulation. Findings could reflect posttraumatic change and/or degenerative change. Recommend CT of the hindfoot to better assess fine bony detail and confirm or exclude underlying fracture fragm ent. Reviewed, dictated and finalized at location M. 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 There is also degenerative c hange at the dorsal aspect of the calcaneocuboid reticulation. Findings could r eflect posttraumatic change and/or degenerative change. Recommend CT of the hin dfoot to better assess fine bony detail and confirm or exclude underlying fract ure fragment.
== END 2024-07-23 07:06 | disposition home or self-care (01) ==
PROVIDERS: PCP Podiatrist Foot & Ankle Surgery; Visit Provider Podiatrist Foot & Ankle Surgery
DX: M76.72 Peroneal tendinitis, left leg (principal); M65.872 Other synovitis and tenosynovitis, left ankle and foot; S93.492A Sprain of other ligament of left ankle, initial encounter; X58.XXXA Exposure to other specified factors, initial encounter
CPT/HCPCS: 73721

== ENCOUNTER 2024-09-13 14:03 | Outpatient (CLI) | payer BC, SELFPAY ==
[2024-09-13 14:46] LABS: Beta HCG Quantitative 232.59 mIU/ML
--- OUTSIDE RECORDS SUMMARY | 2024-09-13 14:50 | XMS_ITS | Clinical Summary ---
Author Organization [facility] Address [address] [place] [address]. [place], [place] [id number] [place] [id number] Care Team Providers Care Plywood Factory Worker Name Role Phone Elizabeth Pena Primary Care Provider [phone] [phone] Allergies No known active allergies Medications vitamin D2, ergocalciferol, 20686 UNITS capsule every 7 days. 09/05/2021 Active vitamin, low iron, ( VITAMIN WITH IRON) 27-0.8 MG tablet Take 1 tablet by mouth daily. Active Active Problems Problem Noted Date Diagnosed Date Heterozygous factor V Leiden mutation (CMS/HCC H HS/HCC) 12/04/2021 BMI 39.0-39.9,adult 12/04/2021 Family History Medical History Relation Comments Depression Brother blood clots Brother Clotting Disorder Father Factor V Diabetes Maternal Grandmother Relation Status Comments Brother Alive Father Alive blood clots, fac tor 5 deficiency Maternal Grandfather Maternal Grandmother Alive Mother Alive Paternal Grandfather Other Paternal Grandmother Son Alive respiratory dist ress symptoms Social History Tobacco Use Types Packs/Day Years Used Date Smoking Tobacco: Former Cigarettes Q uit: 10/02/2020 Passive Smoke Exposure: Past Smokeless Tobacco: Never Tobacco Cessation:Counseling Given: No Alcohol Use Standard Drinks/Week Comments Yes 0 (1 standard drink = 0.6 oz pur e alcohol) social, once a week PHQ-2 Answer Date Recorded Patient Health Questionnaire-2 Score 0 04/08/2024 Comments Unknown Sex and Gender Information Value Date Recorded Sex Assigned at Not on file Legal Sex Female 2:14 PM CDT Gender Identity Female 12/03/2021 9:43 AM CDT Sexual Orientation Straight 12/03/2021 9: 43 AM CDT Last Filed Vital Signs Vital Sign Reading Time Taken Comments Blood Pressure 119/70 04/08/2024 10:15 AM CDT Pulse 100 04/08/2024 10:15 AM CDT Temperature 36.9 ??C (98.5 ??F) 04/08/2024 10:15 AM C DT Respiratory Rate 20 04/08/2024 10:15 AM CDT Oxygen Saturation 99% 04/08/2024 10:15 AM CDT Inhaled Oxygen Concentration - - Weight 92.5 kg (204 lb) 04/08/2024 10:15 AM CDT Height 167.6 cm (5' 6 ) 04/08/2024 10:15 AM CDT Body Mass Index 32.93 04/08/2024 10:15 AM CDT Plan of Treatment Health Maintenance Due Date Last Done Comments Cervical Cancer Screening Pa p Smear (Age 30 to 64) Every 3 Years 1989 Annual Physical 01/07/1992 Hepatitis C 2007 DTaP, Tdap and Td Vaccines ( 1 - Tdap) 01/07/2008 Hepatitis B Vaccines (1 of 3 - 19+ 3-dose series) 01/07/2008 Cervical Cancer Screening Pa p with HPV Testing (Age 30 to 64) Every 5 Years 2019 Cervical Cancer Screening wi HPV 2019 COVID-19 Vaccine ( - 2023-2 5 season) 2024 08/27/2021, 07/30/2021 Influenza Adult (#1) 2024 PHQ-2 (Physician [place]) 04/08/2025 04/08/2024 HPV Vaccines Aged Out No longer eligi ble based on patient's age to complete this topic Meningococcal B Vaccine Aged Out No l onger eligible based on patient's age to complete this topic Meningococcal Vaccine Aged Out No ann juan eligible based on patient's age to complete this topic Pneumococcal Vaccine: Pediatrics (0 to 5 Years) and At-Risk Patients (6 to 64 Years) Aged Out No longer eligible b ased on patient's age to complete this topic RSV Immunizations Under 20 Months Aged Out No longer eligible b ased on patient's age to complete this topic Insurance [facility] Care Teams Plywood Factory Worker Relationship Specialty Start Date End Date Elizabeth Pena APNP [facility] [place] [address] PCP - General NURSE PRACTITIONER 12/04/21
--- OUTSIDE RECORDS SUMMARY | 2024-09-13 14:50 | XMS_ITS | Clinical Summary ---
Author Organization [facility] Address [address] [place] [phone] Phone Care Team Providers Care Rewriter Name Role Phone Unavailable Primary Care Provider Unavailabl e Social History Tobacco Use Types Packs/Day Years Used Date Smoking Tobacco: Never Assessed Comments Unknown Sex and Gender Information Value Date Recorded Sex Assigned at Not on file Legal Sex Female 8:13 AM CDT Gender Identity Not on file Sexual Orientation Not on file Plan of Treatment Health Maintenance Due Date Last Done Comments DTAP/TDAP/TD VACCINES (1 - Tdap) 01/07/2008 HEPATITIS B VACCINES (1 of 3 - 19+ 3-dose series) 01/07/2008 CERVICAL CANCER SCREENING 2019 INFLUENZA VACCINE (#1) 2024 HPV VACCINES Aged Out No longer eligi ble based on patient's age to complete this topic PNEUMOCOCCAL VACCINE 0-64 YEARS Aged Out No longer eligible based on patient's age to complete this topic Insurance [facility] BLUE ACCESS CHOICE
[2024-09-14 05:18] LABS: Progesterone 21.9 ng/mL
== END 2024-09-13 14:04 | disposition home or self-care (01) ==
LOC: ANHLAB 14:05
PROVIDERS: PCP Podiatrist Foot & Ankle Surgery; Visit Provider Obstetrics & Gynecology
DX: O09.299 Supervision of pregnancy with other poor reproductive or obstetric history, unspecified trimester (principal); Z3A.00 Weeks of gestation of pregnancy not specified
CPT/HCPCS: 36415; 84144; 84702

== ENCOUNTER 2024-09-15 12:06 | Outpatient (CLI) | payer BC, SELFPAY ==
--- OUTSIDE RECORDS SUMMARY | 2024-09-15 13:07 | XMS_ITS | Clinical Summary ---
Author Organization [facility] Address [address] [place] [address]. [place], [place] [id number] [place] [id number] Care Team Providers Care Equipment Tech Name Role Phone Elizabeth Pena Primary Care Provider [phone] Allergies No known active allergies Medications vitamin D2, ergocalciferol, 75945 UNITS capsule every 7 days. 09/05/2021 Active [...] Cancer Screening wi HPV 2019 COVID-19 Vaccine (2023-2 5 season) 2024 08/27/2021, 07/30/2021 Influenza Adult (#1) 2024 PHQ-2 (Physician [place]) 08/18/2024 04/08/2024 PHQ-2 (Physician [place]) 04/08/2025 04/08/2024 HPV Vaccines Aged Out No [...] patient's age to complete this topic Insurance [facility] Care Teams Equipment Tech Relationship Specialty Start Date End Date Elizabeth Pena APNP [address] [place] [phone] PCP - General NURSE PRACTITIONER 12/04/21
--- OUTSIDE RECORDS SUMMARY | 2024-09-15 13:07 | XMS_ITS | Clinical Summary ---
Author Organization [facility] Address [address] [place] [phone] Phone Care Team Providers Care Salesperson Neckties Name Role Phone Unavailable Primary Care Provider [...] patient's age to complete this topic Insurance [facility] BLUE ACCESS CHOICE
== END 2024-09-15 12:07 | disposition home or self-care (01) ==
LOC: ANHLAB 12:08
PROVIDERS: Visit Provider Obstetrics & Gynecology
DX: O09.299 Supervision of pregnancy with other poor reproductive or obstetric history, unspecified trimester (principal); Z3A.00 Weeks of gestation of pregnancy not specified
CPT/HCPCS: 36415; 84702

== ENCOUNTER 2024-09-30 09:16 | Outpatient (CLI) | payer BC, SELFPAY ==
--- NOTE | ~2024-09-30 | US_ITS ---
EXAMINATION: US OB <=14 wk fetus w TV DATE: 09/30/2024 09:45 INDICATION: with inconclusive viability. Uncertain dates. TECHNIQUE: Real-time transabdominal and transvaginal pelvic ultrasound was performed. COMPARISON: None. FINDINGS: TRANSABDOMINAL ULTRASOUND: The uterus measures 9.8 x 3.9 x 6.0 cm. TRANSVAGINAL ULTRASOUND: There is an intrauterine gestational sac. A yolk sac is identified. The fet al crown rump length measures 6 mm, which correlates with an estimated gestational age of 6 weeks and 3 day(s) (+/-) 4 day(s). heart motion is identified measuring 97 beats per minute (bpm) by M-m ode Doppler. There is a small subchronic hematoma measuring 6 mm. The right ovary measures 3.2 x 3.0 x 2.5 cm. The left ovary is not visualized. There is no free fluid in the pelvis. IMPRESSION: 1. Single living intrauterine gestation with estimated date of delivery of 05/23/2025. 2. Small subchorionic hematoma. Reviewed, dictated and finalized at location A. S ORDER SPECIALIST
== END 2024-09-30 09:17 | disposition home or self-care (01) ==
LOC: MICIMG 09:17
PROVIDERS: PCP Obstetrics & Gynecology; Visit Provider Obstetrics & Gynecology
DX: O36.80X0 Pregnancy with inconclusive fetal viability, not applicable or unspecified (principal); O26.899 Other specified pregnancy related conditions, unspecified trimester; M54.12 Radiculopathy, cervical region; Z3A.00 Weeks of gestation of pregnancy not specified
CPT/HCPCS: 76801; 76817

== ENCOUNTER 2024-11-10 15:41 | Outpatient (CLI) | payer BC, SELFPAY ==
[2024-11-10 16:03] LABS: Hemoglobin 14.4 g/dL (12.0-15.0); Mean Corpuscular HGB Conc 34.3 g/dl (32-36); Mean Corpuscular Hemoglobin 28.9 pg (26-34); Mean Corpuscular Volume 84.2 fl (80-100); Mean Platelet Volume 10.1 fl (7.4-10.4); Platelet Count Result 269 k/mm3 (150-375); Red Blood Count 4.99 M/mm3 (4.2-5.4); Red Cell Distribution Width 13.1 % (11.5-14.5); White Blood Count 10.8 K/mm3 (4.5-10.0)
[2024-11-10 16:44] LABS: Thyroid Stimulating Hormone 0.193 uIU/mL (0.465-4.680)
[2024-11-10 16:49] LABS: Rubella IgG Antibody 48.1 IU/ML
[2024-11-10 16:50] LABS: Syphilis IgG/IgM Antibody Negative (Negative)
--- OUTSIDE RECORDS SUMMARY | 2024-11-10 16:53 | XMS_ITS | Clinical Summary ---
Author Organization [facility] Address [address] [place] [address] Care Team Providers Care Industrial Painter Name Role Phone Elizabeth Pena April ALEXIS Primary Care Provider [phone] Allergies No known active allergies Medications vitamin D2, ergocalciferol, 31820 UNITS capsule every 7 days. 09/05/2021 Active vitamin, low iron, ( VITAMIN WITH IRON) 27-0.8 MG tablet Take 1 tablet by mouth daily. Active Active Problems Problem Noted Date Diagnosed Date Heterozygous factor V Leiden mutation ([facility]) 12/04/2021 BMI 39.0-39.9,adult 12/04/2021 Family History Medical [...] 100 04/08/2024 10:15 AM CDT Temperature 36.9 C (98.5 F) 04/08/2024 10:15 AM CDT Respiratory Rate 20 04/08/2024 10:15 AM CDT [...] 5 Years 2019 Cervical Cancer Screening wi th HPV 2019 COVID-19 Vaccine ( - 2023-2 5 season) 2024 08/27/2021, 07/30/2021 Influenza Adult (#1) 2024 PHQ-2 (Physician [place]) 08/18/2024 04/08/2024 PHQ-2 (Physician [place]) 04/08/2025 04/08/2024 HPV Vaccines Aged Out No [...] patient's age to complete this topic Insurance [facility] Care Teams Industrial Painter Relationship Specialty Start Date End Date Elizabeth Pena APNP [address] [place] [phone] PCP - General NURSE PRACTITIONER 12/04/21
--- OUTSIDE RECORDS SUMMARY | 2024-11-10 16:53 | XMS_ITS | Clinical Summary ---
Author Organization [facility] Address [address] [place] [phone] Phone Care Team Providers Care Skatesman Name Role Phone Unavailable Primary Care Provider [...] of 3 - 19+ 3-dose series) 01/07/2008 PAP SMEAR 2019 INFLUENZA VACCINE (#1) 2024 HPV VACCINES Aged Out No longer eligi ble based on patient's age to complete this topic PNEUMOCOCCAL VACCINE 0-49 YEARS Aged Out No longer eligible based on patient's age to complete this topic Insurance [facility] BLUE ACCESS CHOICE
[2024-11-10 16:55] LABS: HIV 1/2 Ab P24 Ag Result Negative (Negative)
[2024-11-10 17:10] LABS: Hepatitis C Virus Antibody Negative (Negative)
[2024-11-11 18:18] LABS: Hematocrit 45.2 % (35.0-45.0); Hemoglobin 14.7 g/dL (11.7-15.5); MCH 28.7 pg (27.0-33.0); MCV 88.1 fL (80.0-100.0); RDW 13.2 % (11.0-15.0); Red Blood Cell Count 5.13 Million/uL (3.80-5.10)
[2024-11-12 03:23] LABS: Varicella IgG Antibody <1.00 S/CO
== END 2024-11-10 15:42 | disposition home or self-care (01) ==
LOC: ANHLAB 15:44
PROVIDERS: Visit Provider Obstetrics & Gynecology
DX: Z34.90 Encounter for supervision of normal pregnancy, unspecified, unspecified trimester (principal); Z3A.00 Weeks of gestation of pregnancy not specified
CPT/HCPCS: 36415; 83021; 84443; 85027; 86593; 86703; 86762; 86787; 86803; 86850; 86900; 86901; G0432

== ENCOUNTER 2024-11-30 16:01 | Outpatient (CLI) | payer BC, SELFPAY ==
--- OUTSIDE RECORDS SUMMARY | 2024-11-30 16:48 | XMS_ITS | Clinical Summary ---
Author Organization [facility] Address [address] [place] [phone] Phone Care Team Providers Care Rag Room Supervisor Name Role Phone Unavailable Primary Care Provider [...] of 3 - 19+ 3-dose series) 01/07/2008 HPV/Cotest (21-29) 2010 PAP SMEAR 2010 CERVICAL CANCER SCREENING 2019 HPV/Cotest (30-65) 2019 PAP SMEAR 2019 INFLUENZA VACCINE (#1) 2024 HPV VACCINES Aged Out No longer eligi ble based on patient's age to complete this topic PNEUMOCOCCAL VACCINE 0-49 YEARS Aged Out No longer eligible based on patient's age to complete this topic Insurance [facility] BLUE ACCESS CHOICE [facility]
--- OUTSIDE RECORDS SUMMARY | 2024-11-30 16:48 | XMS_ITS | Clinical Summary ---
Author Organization [facility] Address [address] [place] [id number] Care Team Providers Care Sign Hanger Supervisor Name Role Phone Elizabeth Pena April ALEXIS Primary Care Provider [phone] Allergies No known active allergies Medications vitamin D2, ergocalciferol, 65273 UNITS capsule every 7 days. 09/05/2021 Active vitamin, low iron, ( VITAMIN WITH IRON) 27-0.8 MG tablet Take 1 tablet by mouth daily. Active Active Problems Problem Noted Date Diagnosed Date Heterozygous factor V Leiden mutation ([facility]) 12/04/2021 BMI 39.0-39.9,adult 12/04/2021 Family [...] - 2023-2 5 season) 2024 08/27/2021, 07/30/2021 PHQ-2 (Physician [place]) 08/18/2024 04/08/2024 HPV Vaccines Aged Out No longer eligi ble based on patient's age to complete this topic Meningococcal B Vaccine Aged Out No l onger eligible based on patient's age to complete this topic Meningococcal Vaccine Aged Out No ann juan eligible based on patient's age to complete this topic Pneumococcal Vaccine: Pediatrics (0 to 5 Years) and At-Risk Patients (6 to 49 Years) Aged Out No longer eligible b ased on patient's age to complete this topic RSV Immunizations Under 20 Months Aged Out No longer eligible b ased on patient's age to complete this topic Insurance [facility] Care Teams Sign Hanger Supervisor Relationship Specialty Start Date End Date Elizaebth Pena APNP [address] [place] [address] [phone] PCP - General NURSE PRACTITIONER 12/04/21
[2024-11-30 16:52] LABS: Free T4 Free Thyroxine 0.92 ng/dL (0.78-2.19)
[2024-11-30 17:25] LABS: Hepatitis B Surface Anti Res Negative
== END 2024-11-30 16:02 | disposition home or self-care (01) ==
LOC: ANHLAB 16:03
PROVIDERS: Visit Provider Obstetrics & Gynecology
DX: Z34.90 Encounter for supervision of normal pregnancy, unspecified, unspecified trimester (principal); R79.89 Other specified abnormal findings of blood chemistry
CPT/HCPCS: 36415; 84439; 86706

== ENCOUNTER 2025-02-11 11:36 | Outpatient (CLI) | payer BC, SELFPAY ==
[2025-02-11 14:12] LABS: Hematocrit 38.1 % (37.0-47.0); Hemoglobin 12.9 g/dL (12.0-15.0); Mean Corpuscular HGB Conc 33.9 g/dl (32-36); Mean Corpuscular Hemoglobin 28.5 pg (26-34); Mean Corpuscular Volume 84.3 fl (80-100); Mean Platelet Volume 10.8 fl (7.4-10.4); Platelet Count Result 227 k/mm3 (150-375); Red Blood Count 4.52 M/mm3 (4.2-5.4); Red Cell Distribution Width 13.2 % (11.5-14.5); White Blood Count 11.3 K/mm3 (4.5-10.0)
[2025-02-11 14:39] LABS: Glucose 1 Hour PP 50gm Dose 165 mg/dL
== END 2025-02-11 11:37 | disposition home or self-care (01) ==
LOC: ANHLAB 11:37
PROVIDERS: Visit Provider Obstetrics & Gynecology
DX: Z34.90 Encounter for supervision of normal pregnancy, unspecified, unspecified trimester (principal)
CPT/HCPCS: 36415; 82947; 85027

== ENCOUNTER 2025-03-20 08:13 | Emergency (ER) | payer BC, SELFPAY ==
--- OUTSIDE RECORDS SUMMARY | 2025-03-20 08:16 | XMS_ITS | Clinical Summary ---
Author Organization [facility] Address [facility] [place] [address] Care Team Providers Care Asphalt Coater Name Role Phone Unavailable Primary Care Provider Unavailabl e Source Comments [facility],non-owned Affiliates and Associated Physician Practices is amultiple site organization consisting of ambulatory clinics and hospital sitesin [place], [place], [place] and [place]. This disclosure is being madepursuant to the Care Everywhere program and may not contain all information available regarding this patient. Last updated 18.[facility] Allergies No known active allergies Medications * Be aware that medications may not be up to date on this document. Alwaysverify current medications with the patient. Vit-DSS-Fe Fum-FA ( vitamin with iron) tablet Take 1 (one) tablet by mouth once daily Active aspirin (Aspirin) 81 MG chew tablet Take 2 (two) tablets by mouth once daily (chew and swallow) Active docusate sodium (Colace) 100 MG capsule Take 1 (one) capsule by mouth once daily Active loratadine (Claritin) 10 MG tablet Take 1 (one) tablet by mouth at bedtime Active Active Problems Problem Noted Date Diagnosed Date History of delivery, currently 01/12/2025 Multigravida of advanced maternal age in second trimester 01/12/2025 Factor V Leiden carrier 01/12/2025 History of premature rupture of membranes (PROM) in previous , currently in second trimester 01/12/2025 History of pre-eclampsia 01/12/2025 Obesity affecting in second trimester 01/12/2025 Estimated Date of Delivery Comme nts Yes 05/25/2025 Based on last me nstrual period of 08/18/2024 Encounters Date Type Department Care Team Description 03/09/2025 7:21 AM CDT - 03/09/2025 11:59 PM CDT Hospital Encounter [facility] [address] [place] [id number] Elie Massey MD Discharge Disposition: Home or Self Care 02/04/2025 Telephone [facility] [address] [place] [address] [phone] Anu Carranza RN Results (Prothrombin gene mutation results. ) 01/26/2025 8:08 AM CDT - 01/26/2025 11:59 PM CDT Hospital Encounter [facility] [address] [place] [address] [phone] Elie Massey MD Discharge Disposition: Home or Self Care 01/12/2025 12:35 PM CDT - 01/12/2025 11:59 PM CDT Hospital Encounter [facility] [address] [place] [address] [phone] Elie Massey MD Discharge Disposition: Home or Self Care 12/29/2024 8:56 AM CDT - 12/29/2024 11:59 PM CDT Hospital Encounter [facility] [address] [place] [address] [phone] Elie Massey MD Discharge Disposition: Home or Self Care 12/29/2024 8:56 AM CDT - 12/29/2024 11:59 PM CDT Hospital Encounter [facility] [address] [place] [address] [phone] Elie Massey MD Discharge Disposition: Home or Self Care from Last 3 Months Family History Medical History Relation Name Comments Blood Clots Brother Blood Clots Father Relation Name Status Comments Brother Alive Father Alive Mother Alive Social History Tobacco Use Types Packs/Day Years Used Date Smoking Tobacco: Former Cigarettes Smokeless Tobacco: Never Tobacco Cessation:Counseling Given: Not Answered Alcohol Use Standard Drinks/Week Comments Not Currently 0 (1 standard drink = 0.6 oz pur e alcohol) Estimated Date of Delivery Comme nts Yes 05/25/2025 Based on last me nstrual period of 08/18/2024 Sex and Gender Information Value Date Recorded Sex Assigned at Not on file Legal Sex Female 9:29 AM CDT Gender Identity Not on file Sexual Orientation Not on file Occupation Industry Job Start Date Job End Date Not on file Not on file Not on file Not on file Last Filed Vital Signs Vital Sign Reading Time Taken Comments Blood Pressure 113/70 03/09/2025 7:30 AM CDT Pulse 72 03/09/2025 7:30 AM CDT Temperature - - Respiratory Rate - - Oxygen Saturation - - Inhaled Oxygen Concentration - - Weight 106.3 kg (234 lb 6.4 oz) 03/09/2025 7:30 AM CDT Height 167.6 cm (5' 6) 03/09/2025 7:30 AM CDT Body Mass Index 37.83 03/09/2025 7:30 AM CDT Plan of Treatment Upcoming Encounters Date Type Department Care Team (Late st Contact Info) Description 04/01/2025 7:30 AM CDT Appointment [facility] [address] [place] [phone] 04/06/2025 8:15 AM CDT Appointment [facility] [address] [place] [phone] 04/15/2025 7:30 AM CDT Appointment [facility] [address] [place] [phone] 04/22/2025 7:30 AM CDT Appointment [facility] [address] [place] [phone] 04/29/2025 7:30 AM CDT Appointment [facility] [address] [place] [phone] 05/06/2025 7:30 AM CDT Appointment [facility] [address] [place] [phone] 05/13/2025 7:30 AM CDT Appointment [facility] [address] [place] [address] 05/20/2025 7:30 AM CDT Appointment [facility] [address] [place] [address] Health Maintenance Due Date Last Done Comments HIV SCREENING 01/07/2004 HEPATITIS C SCREENING 01/02/2007 DTAP/TDAP/TD VACCINES (1 - Tdap) 01/07/2008 HEPATITIS B VACCINE (1 of 3 - 19+ 3-dose series) 01/07/2008 PAP SMEAR 2010 HPV VACCINE (1 - 3-dose SCDM series) 01/07/2016 COVID-19 VACCINE (1 - 2023-2 5 season) 2024 DEPRESSION SCREENING 08/18/2024 OB-ONE HOUR GLUCOSE 02/16/2025 OB-TDAP CURRENT 02/23/2025 OB-RHOGAM INJECTION 03/02/2025 INFLUENZA VACCINE (#1) 2025 Respiratory Syncytial Virus (RSV) Vaccine Pt: or over 60 yrs (1 - Risk 1-dose series) 04/18/2025 OB-GROUP B STREP SCREEN 04/20/2025 04/08/2024 ZOSTER VACCINE (1 of 2) 2039 HIB VACCINE Aged Out No longer eligi ble based on patient's age to complete this topic MENINGOCOCCAL (Group B) VACC INE SHARED DECISION-MAKING Aged Out No longer eligibl e based on patient's age to complete this topic MENINGOCOCCAL GROUPS A/C/Y/W VACCINE Aged Out No longer eligible b ased on patient's age to complete this topic PNEUMOCOCCAL VACCINE Aged Out No long er eligible based on patient's age to complete this topic Procedures Procedure Name Priority Date/Time Associated Diagnosis Comments SONOGRAM - COMPLETE Routine 03/09/2025 7 :40 AM CDT Multigravida of advanced maternal age in second trimester ([facility]) History of delivery, currently ([facility]) Factor V Leiden carrier ([facility]) History of premature rupture of membranes (PROM) in previous , currently in second trimester ([facility]) History of pre-eclampsia Obesity affecting in second trimester, unspecified obesity type (HCC) 29 weeks gestation of ([facility]) SONOGRAM - COMPLETE Routine 01/26/2025 8 :05 AM CDT Factor V Leiden carrier (HCC) Multigravida of advanced maternal age in second trimester (HCC) History of premature rupture of membranes (PROM) in previous , currently in second trimester (HCC) History of pre-eclampsia Obesity affecting in second trimester, unspecified obesity type (HCC) Encounter for anatomic survey ([facility]) 23 weeks gestation of ([facility]) SONOGRAM - COMPLETE Routine 01/12/2025 1 2:29 PM CDT History of delivery, currently (HCC) Multigravida of advanced maternal age in second trimester (HCC) Factor V Leiden carrier ([facility]) History of premature rupture of membranes (PROM) in previous , currently in second trimester (HCC) History of pre-eclampsia Obesity affecting in second trimester, unspecified obesity type (HCC) Encounter for screening for cervical length ([facility]) SONOGRAM - COMPLETE Routine 12/29/2024 8 :59 AM CDT Multigravida of advanced maternal age in second trimester (HCC) History of delivery, currently (HCC) Factor V Leiden carrier ([facility]) Encounter for anatomic survey ([facility]) from Last 3 Months Results * Sonogram - Complete (03/09/2025 7:40 AM CDT) Only the most recent of4 resultswithin the time period is included. Linked Results Indication ======== Maternal obesity complicating , class 1 (BMI 30.0 - 34.9) Advanced maternal age (AMA), multigravida Factor V Leiden deficiency complicating heterozygous History ====== OB History 3. Para 1 [id number] 1. miscarriage 2019. Gest. age 34 w + 2 d. Weight 2,749 g. Sex of child: male. Details: Vaginal delivery; Pre-Eclampsia, PPROM Lab Tests Test Date Result NIPT Low risk, Male Maternal Assessment Physical Exam Height 173 cm, 5 ft 8 in. Weight 106 kg, 234 lb. Initial weight 97 kg, 213 lb. BMI 35.58 kg/m . Initial BMI 32.39 kg/m . Weight gain 10 kg, 21 lb Method ====== Transabdominal ultrasound. View: Sufficient ========= Hurst . Number of fetuses: 1 Dating ====== Date Details Gest. age GODFREY LMP 08/18/2024 29 w + 0 d 05/25/2025 Stated GODFREY 29 w + 0 d 05/25/2025 Previous U/S 09/30/2024 CRL 6.0 mm 29 w + 2 d 05/23/2025 U/S 03/09/2025 based upon AC, BPD, Femur, HC 31 w + 3 d 05/08/2025 Assigned dating based on the LMP, selected on 12/29/2024 29 w + 0 d 05/25/2025 General Evaluation Cardiac activity present. FHR 143 bpm. movements: visualized. Presentation: cephalic Placenta: Placental site: anterior Amniotic fluid: Amount of AF: normal. MVP 6.4 cm. LUZMARIA 19.4 cm. Q1 5.5 cm, Q2 6.4 cm, Q3 3.9 cm, Q4 3.7 cm Biometry BPD 76.8 mm 30w 6d 88% Hadlock HC 286.9 mm 31w 4d 87% Hadlock AC 282.1 mm 32w 2d >99% Hadlock Femur 59.1 mm 30w 6d 84% Hadlock Humerus 55.8 mm 32w 3d >99% Arianna HC / AC 1.02 Weight Calculation: EFW 1,804 g >99% Hadlock EFW (lb,oz) 4 lb 0 oz EFW by Hadlock ([id number]) LGA Growth Overview Exam date GA BPD (mm) HC (mm) AC (mm) FL (mm) HL (mm) EFW (g) 12/29/2024 19w 0d 48.3 96% 179.6 94% 152.3 88% 34.5 94% 33.2 98% 365 >99% 01/26/2025 23w 0d 58 74% 208.4 32% 204.1 93% 44.9 90% 42.2 96% 721 98% 03/09/2025 29w 0d 76.8 88% 286.9 87% 282.1 >99% 59.1 84% 55.8 >99% 1804 >99% Anatomy The following structures appear normal: Abdomen Stomach. Kidneys. Bladder. sex: male. Impression ========= Single, live, intrauterine at 29w 0d The size is LGA The amniotic fluid volume is normal No malformations were seen within the limitations of ultrasound Comment ======== U/S cannot detect all structural, genetic, or functional , placental, or maternal abnormalities Follow-up ======== Review GDM screening results Start weekly NST+BPP at 32 weeks Follow up ultrasound for growth at 33 weeks Coding ====== Procedures [id number]: US Preg Uterus Follow Up [facility] [employer] PACS Anatomical Region Laterality Modality Other 03/09/2025 7:40 AM CDT Juan Manuel Yu MD [facility] ORDERABLES Edited Result - Final from Last 3 Months Insurance [employer]
--- OUTSIDE RECORDS SUMMARY | 2025-03-20 08:16 | XMS_ITS | Clinical Summary ---
Author Organization [facility] Address [address] [place] [phone] Phone Care Team Providers Care Store Worker Name Role Phone Unavailable Primary Care Provider Unavailabl e Social History Tobacco Use Types Packs/Day Years Used Date Smoking Tobacco: Never Assessed Comments Unknown Sex and Gender Information Value Date Recorded Sex Assigned at Not on file Legal Sex Female 8:13 AM CDT Gender Identity Not on file Sexual Orientation Not on file Plan of Treatment Health Maintenance Due Date Last Done Comments HPV VACCINES (1 - 3-dose series) 01/07/2004 DTAP/TDAP/TD VACCINES (1 - Tdap) 01/07/2008 HEPATITIS B VACCINES (1 of 3 - 19+ 3-dose series) 12/17 HPV/Cotest (21-29) 2010 CERVICAL CANCER SCREENING 2019 HPV/Cotest (30-65) 2019 PAP SMEAR 2019 INFLUENZA VACCINE (#1) 2025 Insurance [facility] BLUE ACCESS CHOICE [facility]
--- OUTSIDE RECORDS SUMMARY | 2025-03-20 08:16 | XMS_ITS | Clinical Summary ---
Author Organization [facility] Address [address] [place] [id number] Care Team Providers Care Sandblaster Stone Name Role Phone BeckyElizabeth valencia April ALEXIS Primary Care Provider +1- [phone] Allergies No known active allergies Medications vitamin D2, ergocalciferol, [address]12 UNITS capsule every 7 days. 09/05/2021 Active vitamin, low iron, ( VITAMIN WITH IRON) 27-0.8 MG tablet Take 1 tablet by mouth daily. Active Active Problems Problem Noted Date Diagnosed Date Heterozygous factor V Leiden mutation ([facility]) 12/04/2021 BMI 39.0-39.9,adult 12/04/2021 Family History Medical [...] 10:15 AM CDT Height 167.6 cm (5' 6) 04/08/2024 10:15 AM CDT Body Mass Index 32.93 04/08/2024 10:15 AM CDT Plan of Treatment Health Maintenance Due Date Last Done Comments Cervical Cancer Screening Pa p Smear (Age 30 to 64) Every 3 Years 1989 Annual Physical 01/07/1992 Hepatitis C 2007 DTaP, Tdap and Td Vaccines ( 1 - Tdap) 01/07/2008 Hepatitis B Vaccines (1 of 3 - 19+ 3-dose series) 01/07/2008 HPV Vaccines (1 - 3-dose SCD M series) 01/07/2016 Cervical Cancer Screening Pa p with HPV Testing (Age 30 to 64) Every 5 Years 2019 Cervical Cancer Screening wi HPV 2019 COVID-19 Vaccine (3 - 2023-2 5 season) 2024 08/27/2021, 07/30/2021 PHQ-2 (Physician [place]) 08/18/2024 04/08/2024 Meningococcal B Vaccine Aged Out No l [...] patient's age to complete this topic Insurance [facility] Care Teams Sandblaster Stone Relationship Specialty Start Date End Date Elizabeth Pena APNP [address] [place] [address] [phone] PCP - General NURSE PRACTITIONER 12/04/21
[2025-03-20 08:20] VITALS: BP 147/73; PULSE 74; RESP 18; TEMP 36.4; O2SAT 100
--- NOTE | 2025-03-20 08:21 | ED.URI ---
HPI - URI/Sore Throat General Chief Complaint: Upper Respiratory Infection Stated Complaint: cold symptoms Patient presents to [facility] with complaints of nasal congestion, nasal drainage, mild cough, sore pain and drainage in both ears that began about 1 week ago. Patient noted a long history frequent ear infections as a child occasional as an adult. Patient noted taking daily Claritin using Afrin for the last 3 days With minimal relief of symptoms. Patient does have a 3-year-old with nasal congestion as well. Denies fever, chills, body aches, dizziness, shortness of breath, abdominal pain, difficulty swallowing Related Data Home Medications ?Medication ?Instructions ?Recorded ?Confirmed ?Last Taken ?Type vits 75-iron 28 mg-folic pkg PO 04/07/24 03/16/25 Unknown History acid 800 mcg-omega3 440 mg oral pack aspirin 81 mg chewable tablet 81 mg PO DAILY 09/16/24 03/16/25 Unknown History docusate sodium 100 mg capsule 100 mg PO DAILY 11/10/24 03/16/25 Unknown History (Colace) loratadine 10 mg tablet (Claritin) 10 mg PO DAILY 03/16/25 03/16/25 Unknown History Allergies Allergy/AdvReac Type Severity Reaction Status Date / Time No Known Allergies Allergy Verified 03/20/25 08:21 Review of Systems Constitutional: Constitutional: Reports as per HPI, Denies chills, Reports fatigue, Denies fever(s) and Denies weakness Eyes: Eyes: Reports no additional eye complaints ENT: Reports as per HPI, Denies vertigo, Denies dizziness, Reports nasal congestion and Reports sore throat Comments: bilateral ear pain Cardiovascular: Cardiovascular: Reports no additional cardiovascular complaints Respiratory: Respiratory: Reports as per HPI, Denies chest congestion, Reports cough, Denies dyspnea and Denies wheezing Gastrointestinal: Gastrointestinal: Reports no additional gastrointestinal complaints Genitourinary: Genitourinary: Reports no additional female genitourinary complaints Musculoskeletal: Musculoskeletal: Reports no additional musculoskeletal complaints Integumentary/Breasts: Skin/Breast: Reports system reviewed and no additional complaints, except as docu Neurologic: Reports as per HPI, Denies vertigo, Denies dizziness, Reports headache(s), Denies numbness and Denies weakness Psychiatric: Psychiatric: Reports no additional psychiatric complaints Endocrine: Endocrine: Reports no additional endocrine complaints Hematologic/Lymphatic: Hematologic/Lymphatic: Reports no additional hematologic/lymphatic complaints Allergic/Immunologic: Allergic/Immunologic: Reports as per HPI Comments: seasonal allergies PMFSH Past Medical History Medical History Factor V Leiden Vaginal delivery History of miscarriage Allergies (normal spontaneous vaginal delivery) Surgical History Surgical History [place] teeth removed Family History Family History Grandparent Cerebrovascular accident Family history of Alzheimer's disease Family history of coronary artery disease Diabetes mellitus Hypertension Family history of type 2 diabetes mellitus Other Alcoholism Heart disease Social History Social History Smoking status: Former smoker Second hand tobacco smoke exposure: No Smoking end date: 08/18/20 Alcohol intake: current Substance use: never Substance use type: does not use Lack of Transportation: No Lack of Food: Never True Current Housing: I Have Housing Concerned About Future Housing: No Difficulty Paying Gas/Electric Bills: No Difficulty Paying for Meds: No Currently Unemployed: No Education: Master's Degree or Higher Living arrangements: with family Occupation/Education: occupation Gender identity (if verbalized by the patient): Female Sexual Orientation (if Verbalized by the Patient): Straight or Heterosexual Spiritual care concerns: No Exam Const: General: healthy appearing and no acute distress Nutritional Appearance: well nourished Orientation/consciousness: patient oriented x3 Limitations: no limitations HENMT: Head: normal to inspection Ears: external ears normal and TM abnormal Face/Nose/Sinus: Normal external nose present and nares abnormal Face and sinus: normal facial exam, sinuses tender and sinus tenderness Mouth: Yes Normal oral and palatal mucosa present and Yes moist mucous membranes Throat: posterior oropharynx abnormal Other: bilateral TM with moderate erythema and retraction, clear fluid noted. Maxillary sinus tenderness bilaterally moderate erythema and edema posterior pharynx, no exudate. Neck: Neck: normal visual inspection and no lymphadenopathy Resp: Effort & Inspection: normal respiratory effort Auscultation: clear to auscultation bilaterally Cardio: Rate: regular rate Rhythm: regular rhythm Skin: General skin exam: normal color Rashes: no rashes Wounds: no wounds Neuro: General: patient oriented x3 Speech: normal speech Gait exam (Neuro): Normal gait present Psych: Mental Status: mental status grossly normal Affect: normal affect Attitude: cooperative Course Course Level of Care: Express Care Visit MDM - URI/Sore Throat MDM Narrative Medical decision making narrative: AOM Bilaterally noted. Elevated blood pressure. Recommended follow-up with OB for further evaluation. History of preeclampsia Discharge instructions reviewed with patient, as well as provided in writing per nursing staff. The instructions also include specific and strict return/GO TO THE ER as well as f/u information. All questions have been answered, and the patient deny any further questions with discharge and discharge plan. Differential Diagnosis Differential diagnosis: Likely upper respiratory infection, croup, otitis media, sinusitis, viral infection, influenza and pharyngitis Medical Records Attestation: I reviewed the patient's medical records. Discharge Plan Discharge Clinical Impression: Acute otitis media, bilateral Patient Disposition: Home Condition: Stable Instructions: Antibiotic Form, Ear Infection (ED) Additional Instructions: Return to urgent care or go to the ER for new or worsening symptoms. Continue to take Tylenol for pain. Use a humidifier or vaporizer at night. Take Medications as prescribed. Drink plenty of water. 8-10 glasses per day. Use flonase 2 times per day for 5 days then as needed Continue Claritin as needed. Follow up with Primary provider if not getting better. Return to Express Care or go to the ER for new or worsening symptoms. Take the full dose of Antibiotics. May use the fluconazole for yeast infection after taking the antibiotics. Your blood pressure was elevated in the Express Care. Given and history of preeclampsia follow closely with your OB for further evaluation. If you note significant swelling in feet or ankles should be evaluated in triage at the hospital in OB. if available please check your blood pressure daily at home. Patient Language: Ethiopian Prescriptions: New amoxicillin 875 mg tablet 875 mg PO Q12H Qty: 20 0RF fluconazole 150 mg tablet 150 mg PO Q72H Qty: 2 0RF No Action Daily [phone] mg-mcg-mg Combo Pack PO docusate sodium [Colace] 100 mg capsule 100 mg PO DAILY loratadine [Claritin] 10 mg tablet 10 mg PO DAILY aspirin 81 mg tablet,chewable 81 mg PO DAILY Follow-up/Referrals: PHYSICIAN,STRATEGIC PLANNING SPECIALIST [Primary Care Provider] - Time of Disposition: 08:39
[2025-03-20 08:34] VITALS: BP 144/82
== END 2025-03-20 08:43 | disposition home or self-care (01) ==
PROVIDERS: Emergency Provider Nurse Practitioner Family; Referring Provider Family Medicine
DX: H66.93 Otitis media, unspecified, bilateral (principal); Z87.891 Personal history of nicotine dependence; D68.51 Activated protein C resistance
CPT/HCPCS: 99213; G0463

== ENCOUNTER 2025-05-03 13:43 | Outpatient (CLI) | payer BC, SELFPAY ==
--- NOTE | ~2025-05-03 | US_ITS ---
EXAMINATION: US OB BPP wo non-stress DATE: 05/03/2025 16:12 INDICATION: Decelerations. TECHNIQUE: Real-time pelvic ultrasound was performed. COMPARISON: Ultrasound 09/30/2024 FINDINGS: There is a single living fetus in vertex presentation. The placenta is anterior. heart rate is 142 beats per minute (bpm). The amniotic fluid index is 7.5 cm which is low (5th percentile is 7.7 cm). Biophysical profile performed by the technologist: breathing (30 sec sustained breathing in 30 minutes): 2 out of 2 movement (3 gross body movements in 30 minutes): 2 out of 2 tone (one episode of ziinega-beterrzrq-kggofoe limb movement): 2 out of 2 Amniotic fluid pocket (2 cm): 2 out of 2 Total score: 8 out of 8 IMPRESSION: 1. Single living fetus in vertex presentation. 2. Biophysical profile 8 out of 8. 3. Oligohydramnios. Reviewed, dictated and finalized at location E.
[2025-05-03 14:04] VITALS: BP 137/71; PULSE 85
[2025-05-03 14:16] VITALS: BP 132/69; PULSE 97
[2025-05-03 14:30] LABS: Hematocrit 38.1 % (37.0-47.0); Hemoglobin 12.7 g/dL (12.0-15.0); Immature Granulocyte Percent A 0.4 % (0-0.5); Lymphocytes Absolute Auto 1.99 K/mm3 (0.9-3.2); Mean Corpuscular HGB Conc 33.3 g/dl (32-36); Mean Corpuscular Hemoglobin 26.8 pg (26-34); Mean Corpuscular Volume 80.4 fl (80-100); Nucleated Red Blood Cells Absolute Auto 0.000 K/mm3 (0.0-0.012); Nucleated Red Blood Cells Perc 0.0 % (0.0-0.2); Platelet Count Result 168 k/mm3 (150-375); Red Blood Count 4.74 M/mm3 (4.2-5.4); White Blood Count 9.3 K/mm3 (4.5-10.0)
[2025-05-03 14:31] VITALS: BP 125/71; PULSE 90
[2025-05-03 14:41] LABS: Alanine Aminotransferase 17 U/L (6-35); Albumin Level 3.5 g/dL (3.5-5.1); Alkaline Phosphatase 142 U/L (38-126); Anion Gap 8 mmol/L (4-12); Aspartate Amino Transferase 30 U/L (14-36); Bilirubin,Total 0.3 mg/dL (0.2-1.3); Blood Urea Nitrogen 7 mg/dL (7-17); Calcium 8.6 mg/dL (8.4-10.2); Carbon Dioxide 20 mmol/L (22-30); Chloride 104 mmol/L (98-107); Estimated Glomerular Filt Rate > 60; Glucose 73 mg/dL (65-110); Potassium 4.0 mmol/L (3.4-5.0); Sodium 132 mmol/L (137-145); Total Protein 6.9 g/dL (6.3-8.2); Uric Acid 5.2 mg/dL (2.5-7.5)
[2025-05-03 14:44] LABS: Add Urine Microscopic? YES; Appearance Urine Clear (Clear); Glucose Urine UA Negative (Negative); Leukocyte Esterase Ur 1+ LEU/UL (Negative); Need Manual Microscopic Reviewed; Nitrate Urine Negative (Negative); Non Pathogenic Casts 0-2; Specific Grav Ur 1.008 (1.001-1.035)
[2025-05-03 14:46] VITALS: BP 106/61; PULSE 80
[2025-05-03 14:46] LABS: Total Protein Urine Random 22 mg/dL; Ur Ttl Prot Creatinine Ratio 0.47 mg/mg (0-0.20)
[2025-05-03 15:01] VITALS: BP 114/62; PULSE 94
[2025-05-03 15:16] VITALS: BP 122/70; PULSE 86
--- OUTSIDE RECORDS SUMMARY | 2025-05-03 15:34 | XMS_ITS | Clinical Summary ---
Author Organization [facility] Address [facility] [place] [address] Care Team Providers Care Compliance Counsel Name Role Phone Unavailable Primary Care Provider Unavailabl e Source Comments [facility] [employer],non-owned Affiliates and Associated Physician Practices is amultiple site organization consisting of ambulatory clinics and hospital sitesin [place], [place], [place] and [place]. This disclosure is being madepursuant to the Care Everywhere program and may not contain all information available regarding this patient. Last updated 18.[facility] [employer] Allergies No known active allergies Medications * [...] Encounters Date Type Department Care Team Description 04/29/2025 7:30 AM CDT - 04/29/2025 11:59 PM CDT Hospital Encounter [facility] [address] [place] [phone] Elie Massey MD Discharge Disposition: Home or Self Care 04/29/2025 Travel 04/22/2025 7:28 AM CDT - 04/22/2025 11:59 PM CDT Hospital Encounter [facility] [address] [place] [phone] Tennille Kim MD AIRPLANE [employer] Discharge Disposition: Home or Self Care 04/15/2025 7:26 AM CDT - 04/15/2025 11:59 PM CDT Hospital Encounter [facility] [address] [place] [phone] Elie Massey MD Discharge Disposition: Home or Self Care 04/06/2025 8:07 AM CDT - 04/06/2025 11:59 PM CDT Hospital Encounter [facility] [address] [place] [phone] Jaz Maza MD Discharge Disposition: Home or Self Care 04/01/2025 7:26 AM CDT - 04/01/2025 11:59 PM CDT Hospital Encounter [facility] [address] [place] [phone] Dimas Singh MD AIRPLANE PILOT Discharge Disposition: Home or Self Care 03/09/2025 7:21 AM CDT - 03/09/2025 11:59 PM CDT Hospital Encounter [facility] [address] [place] [phone] Elie Massey MD Discharge Disposition: Home or Self Care 02/04/2025 [facility] [address] [place] [phone] Anu Carranza RN Results (Prothrombin gene mutation results. ) from Last 3 Months Family History Medical [...] Sign Reading Time Taken Comments Blood Pressure 122/80 04/29/2025 8:30 AM CDT Pulse 78 04/29/2025 8:30 AM CDT Temperature - - Respiratory Rate - - Oxygen Saturation - - Inhaled Oxygen Concentration - - Weight 109.3 kg (241 lb) 04/06/2025 8:22 AM CDT Height 167.6 cm (5' 6) 03/09/2025 7:30 AM CDT Body Mass Index 38.9 03/09/2025 7:30 AM CDT Plan of Treatment Upcoming Encounters Date Type Department Care Team (Late st Contact Info) Description 05/04/2025 7:30 AM CDT Hospital Encounter [facility] [address] [place] [address] Jaz Maza MD [address] [facility] 4[place] [address] 05/13/2025 7:30 AM CDT Appointment [facility] [address] [place] [phone] 05/20/2025 7:30 AM CDT Appointment [facility] [address] [place] [phone] Health Maintenance Due Date Last Done Comments HIV SCREENING 01/07/2004 HEPATITIS C SCREENING 01/02/2007 DTAP/TDAP/TD VACCINES (1 - Tdap) 01/07/2008 HEPATITIS B VACCINE (1 of 3 - 19+ 3-dose series) 01/07/2008 PAP SMEAR 2010 HPV VACCINE (1 - 3-dose SCDM series) 01/07/2016 DEPRESSION SCREENING 08/18/2024 OB-ONE HOUR GLUCOSE 02/16/2025 OB-RHOGAM INJECTION 03/02/2025 COVID-19 VACCINE (3 - 2024-2 6 season) 2025 08/27/2021, 07/30/2021 INFLUENZA VACCINE (#1) 2025 , 05/22/2021 Respiratory Syncytial Virus (RSV) Vaccine Pt: or over 60 yrs (1 - Risk 1-dose series) 04/18/2025 OB-GROUP B STREP SCREEN 04/20/2025 04/08/2024 ZOSTER VACCINE (1 of 2) 2039 OB-TDAP CURRENT Completed 04/01/2025 HIB VACCINE Aged Out No longer eligi ble based on patient's age to complete this topic MENINGOCOCCAL (Group B) VACCINE SHARED DECISION-MAKING Aged Out No longer eligible based on patient's age to complete this topic MENINGOCOCCAL GROUPS A/C/Y/W VACCINE Aged Out No longer eligible b ased on patient's age to complete this topic PNEUMOCOCCAL VACCINE Aged Out No long er eligible based on patient's age to complete this topic Procedures Procedure Name Priority Date/Time Associated Diagnosis Comments BIOPHYSICAL PROFILE W NST Routine 04/29/2025 7:34 AM CDT Multigravida of advanced maternal age in second trimester ([facility]) History of delivery, currently ([facility]) Factor V Leiden carrier ([facility]) History of premature rupture of membranes (PROM) in previous , currently in second trimester ([facility]) History of pre-eclampsia 31 weeks gestation of ([facility]) Obesity affecting in second trimester, unspecified obesity type ([facility]) Encounter for ultrasound ([facility]) Encounter for other screening follow-up ([facility]) BIOPHYSICAL PROFILE W NST Routine 04/22/2025 7:31 AM CDT Multigravida of advanced maternal age in second trimester (HCC) History of delivery, currently (HCC) Factor V Leiden carrier (HCC) History of premature rupture of membranes (PROM) in previous , currently in second trimester (HCC) History of pre-eclampsia 31 weeks gestation of (HCC) Obesity affecting in second trimester, unspecified obesity type (HCC) Encounter for ultrasound (HCC) Encounter for other screening follow-up (HCC) BIOPHYSICAL PROFILE W T Routine 04/15/2025 7:31 AM CDT Multigravida of advanced maternal age in second trimester (HCC) History of delivery, currently (HCC) Factor V Leiden carrier (HCC) History of premature rupture of membranes (PROM) in previous , currently in second trimester (HCC) History of pre-eclampsia 31 weeks gestation of (HCC) Obesity affecting in second trimester, unspecified obesity type (HCC) Encounter for ultrasound (HCC) Encounter for other screening follow-up ([facility]) BIOPHYSICAL PROFILE W T Routine 04/06/2025 8:42 AM CDT Multigravida of advanced maternal age in second trimester (HCC) History of delivery, currently (HCC) Factor V Leiden carrier (HCC) History of premature rupture of membranes (PROM) in previous , currently in second trimester (HCC) History of pre-eclampsia 31 weeks gestation of (HCC) Obesity affecting in second trimester, unspecified obesity type (HCC) Encounter for ultrasound (HCC) Encounter for other screening follow-up (HCC) BIOPHYSICAL PROFILE W T Routine 04/01/2025 7:33 AM CDT Multigravida of advanced maternal age in second trimester (HCC) History of delivery, currently (HCC) Factor V Leiden carrier (HCC) History of premature rupture of membranes (PROM) in previous , currently in second trimester (HCC) History of pre-eclampsia 31 weeks gestation of (HCC) Obesity affecting in second trimester, unspecified obesity type (HCC) Encounter for ultrasound (HCC) Encounter for other screening follow-up (HCC) SONOGRAM - COMPLETE Routine 03/09/2025 7 :40 AM CDT Multigravida of advanced maternal age in second trimester (HCC) History of delivery, currently ([facility]) Factor V Leiden carrier ([facility]) History of premature rupture of membranes (PROM) in previous , currently in second trimester (HCC) History of pre-eclampsia Obesity affecting in second trimester, unspecified obesity type ([facility]) 29 weeks gestation of ([facility]) from Last 3 Months Results * Biophysical Profile w NST (04/29/2025 7:34 AM CDT) Only the most recent of5 resultswithin the time period is included. Linked Results Indication ======== Factor V Leiden deficiency complicating Large for dates Maternal obesity complicating , class 1 (BMI 30.0 - 34.9) Advanced maternal age (AMA), multigravida History ====== OB History 3. Para 1 [id number] 1. miscarriage 2019. Gest. age 34 w + 2 d. Weight 2,749 g. Sex of child: male. Details: Vaginal delivery; Pre-Eclampsia, PPROM Lab Tests Test Date Result NIPT Low risk, Male Maternal Assessment Physical Exam Height 173 cm, 5 ft 8 in. Weight 113 kg, 250 lb. Initial weight 97 kg, 213 lb. BMI 38.01 kg/m . Initial BMI 32.39 kg/m . Weight gain 17 kg, 37 lb Method ====== Transabdominal ultrasound examination. View: Sufficient ========= Hurst . Number of fetuses: 1 Dating ====== Date Details Gest. age GODFREY LMP 08/18/2024 36 w + 2 d 05/25/2025 Stated GODFREY 36 w + 2 d 05/25/2025 Previous U/S 09/30/2024 CRL 6.0 mm 36 w + 4 d 05/23/2025 Assigned dating based on the LMP, selected on 12/29/2024 36 w + 2 d 05/25/2025 General Evaluation Cardiac activity present. FHR 146 bpm. Presentation: cephalic Placenta: Placental site: anterior Amniotic Fluid Assessment ==== Amount of AF: normal MVP 8.0 cm. LUZMARIA 16.6 cm. Q1 2.0 cm, Q2 8.0 cm, Q3 2.7 cm, Q4 4.1 cm Biophysical Profile 2: breathing movements 2: Gross body movements 2: tone 2: Amniotic fluid volume NST: reactive 05/27 Biophysical profile score Non Stress Test NST interpretation: reactive. Baseline FHR 135 bpm. Baseline variability: moderate. Accelerations: present Biometry BPD 92.1 mm 37w 3d 86% Hadlock HC 331.7 mm 37w 6d 59% Hadlock AC 355.2 mm 39w 3d >99% Hadlock Femur 74.5 mm 38w 1d 87% Hadlock Humerus 69.6 mm -/- >99% Arianna HC / AC 0.93 Weight Calculation: EFW 3,567 g 97% Hadlock EFW (lb,oz) 7 lb 14 oz EFW by Hadlock ([id number]) LGA Growth Overview Exam date GA BPD (mm) HC (mm) AC (mm) FL (mm) HL (mm) EFW (g) 12/29/2024 19w 0d 48.3 96% 179.6 94% 152.3 88% 34.5 94% 33.2 98% 365 >99% 01/26/2025 23w 0d 58 74% 208.4 32% 204.1 93% 44.9 90% 42.2 96% 721 98% 03/09/2025 29w 0d 76.8 88% 286.9 87% 282.1 >99% 59.1 84% 55.8 >99% 1804 >99% 04/06/2025 33w 0d 90 >99% 314.1 71% 328.9 >99% 70.1 96% 63.5 >99% 2921 >99% 04/29/2025 36w 2d 92.1 86% 331.7 59% 355.2 >99% 74.5 87% 69.6 >99% 3567 97% Anatomy The following structures appear normal: Abdomen Stomach. Kidneys. Bladder. sex: male. Impression ========= Single, live, intrauterine at 36w 2d The growth is LGA. The amniotic fluid volume is normal. The biophysical profile is 10/10. Comment ======== ultrasound alone cannot detect all structural, genetic, or functional , placental, or maternal abnormalities Follow-up ======== Continue weekly testing. Close surveillance for hypertension. Coding ====== Diagnoses O09.523: Supervision of elderly multigravida O99.213, E66.811: Obesity complicating , class 1 (BMI 30.0 - 34.9) O99.113: Other diseases of the blood and blood-forming organs and certain disorders involving the immune mechanism complicating Procedures 75738: [place] [address]: Biophysical Profile W NST [facility] [employer] PACS Anatomical Region Laterality Modality Other 04/29/2025 7:34 AM CDT Juan Manuel Yu MD [facility] ORDERABLES Edited Result - Final * Sonogram - Complete (03/09/2025 7:40 AM CDT) Linked Results Indication ======== Maternal obesity complicating , class 1 (BMI 30.0 - 34.9) Advanced maternal age (AMA), multigravida Factor V Leiden deficiency complicating heterozygous History ====== OB History 3. Para 1 [id number] 1. miscarriage 2019 22020. Gest. age 34 w + 2 d. [...] Amount of AF: normal. MVP 6.4 cm. LUZAMRIA 19.4 cm. Q1 5.5 cm, Q2 6.4 [...] 4 lb 0 oz EFW by Hadlock (CLF-HM-HU-FL) LGA Growth Overview Exam date GA BPD [...] growth at 33 weeks Coding ====== Procedures 99897: US Preg Uterus Follow Up [facility] [employer] PACS Anatomical Region Laterality Modality Other 03/09/2025 7:40 AM CDT us Juan Manuel Yu MD [facility] ORDERABLES Edited Result - Final from Last 3 Months Insurance ANTH
--- OUTSIDE RECORDS SUMMARY | 2025-05-03 15:34 | XMS_ITS | Clinical Summary ---
Author Organization [facility] Address [address] [place] [phone] Phone Care Team Providers Care Chart Changer Name Role Phone Unavailable Primary Care Provider [...] 19+ 3-dose series) 12/17 HPV/Cotest (21-29) 2010 HPV VACCINES (1 - 3-dose SCDM series) 01/07/2016 CERVICAL CANCER SCREENING 2019 HPV/Cotest (30-65) 2019 PAP SMEAR 2019 INFLUENZA VACCINE (#1) 2025 Insurance [facility] BLUE ACCESS CHOICE [facility]
--- OUTSIDE RECORDS SUMMARY | 2025-05-03 15:34 | XMS_ITS | Clinical Summary ---
Author Organization [address] Address [address] [facility] [address] [place] [address] Care Team Providers Care Seal Mixing Operator Name Role Phone Tala Bhardwaj NP Primary Care Provider [phone] Nandini Padgett MD Unavailable [phone] Allergies No known active allergies Medications aspirin 81 mg chewable tablet Take 1 tablet (81 mg total) by mouth daily 2 daily 09/16/2024 Active vit 71-qaep-bucof-dh a 27mg iron- 800 mcg-250 mg capsule Take by mouth Active Active Problems Problem Noted Date Diagnosed Date Obesity (BMI 30-39.9) 04/08/2025 Assessment & Plan (04/08/2025 1:38 PM CDT): Discussed the patients BMI: The BMI is above average BMI management is complete. BMI follow-up includes: Nutrition Counseling and education provided Physical exam, annual 04/08/2025 Encounters Date Type Department Care Team Description 04/08/2025 1:30 PM CDT Office Visit [facility] [address] [facility] [address] [place] [phone] Tala Bhardwaj NP Physical exam, annual (Primary Dx); BMI 39.0-39.9,adult; Obesity (BMI 30-39.9) from Last 3 Months Immunizations Immunization Administration Dates Next Due DTaP 02/20/1994, 1,1989,1989,0 1989 Hep B, Adolescent or Pediatric 01/25/1999,1998,07/27/1998 HiB 08/26/1990 IPV 02/20/1994,09/30/1990,1989 ,1989 Influenza, Trivalent, IM (MDV) 05/22/2021 Influenza, Unspecified 06/11/2024 Tdap 04/01/2025 Surgical History Surgery Date Site/Laterality Comments WISDOM TOOTH EXTRACTION EYE SURGERY Medical History Medical History Date Comments Family History Medical History Relation Name Comments Blood Clot Brother Relation Name Status Comments Brother Alive Father Alive Mother Alive Social History Tobacco Use Types Packs/Day Years Used Date Smoking Tobacco: Former Cigarettes Tobacco Cessation:Counseling Given: Not Answered Alcohol Use Standard Drinks/Week Comments Never 0 (1 standard drink = 0.6 oz pur e alcohol) PHQ-2 Answer Date Recorded PHQ-2 Total Score (If total score is 3 or more points, staff should administer the PHQ-9) 0 04/08/2025 AUDIT-C Answer Date Recorded Q1: How often do you have a drink containing alcohol? Never 04/08/2025 Q2: How many drinks containi ng alcohol do you have on a typical day when you are drinking? Patient does not drink Q3: How often do you have si x or more drinks on one occasion? 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 Gender Identity Female 04/08/2025 2:03 PM CDT Sexual Orientation Straight 04/08/2025 2: 03 PM CDT Obstetrics History Last Filed Vital Signs Vital Sign Reading Time Taken Comments Blood Pressure 118/64 04/08/2025 1:27 PM CDT Pulse 78 04/08/2025 1:27 PM CDT Temperature 36.7 C (98.1 F) 04/08/2025 1:27 PM CDT Respiratory Rate - - Oxygen Saturation 96% 04/08/2025 1:27 PM CDT Inhaled Oxygen Concentration - - Weight 110.2 kg (243 lb) 04/08/2025 1:27 PM CDT Height 167.6 cm (5' 6) 04/08/2025 1:27 PM CDT Body Mass Index 39.22 04/08/2025 1:27 PM CDT Plan of Treatment Health Maintenance Due Date Last Done Comments Cervical Cancer Screening 1989 Hepatitis C Screening 1989 Varicella Vaccines (1 of 2 - 13+ 2-dose series) 2002 HPV Vaccines (1 - 3-dose SCDM series) 01/07/2016 Covid-19 Vaccine (3 - season) 2025 08/27/2021, 07/30/2021 Influenza Vaccine (#1) 2025 06/11/2024, 2020 Depression Screening 04/08/2026 04/08/2025 Regular Well Visit/Exam 18-64 04/08/2026 04/08/2025 DTaP/Tdap/Td Vaccine (7 - Td or Tdap) 04/01/2035 04/01/2025, 02/20/1994, 09/30/1990, Additional history exists Hepatitis B Screening Completed 01/25/1999 , 09/07/1998, 07/27/1998 Pneumococcal vaccine <65 Aged Out No longer eligible based on patient's age to complete this topic Insurance [facility] Loc[employer]er CHOICE Care Teams Seal Mixing Operator Relationship Specialty Start Date End Date Tala Bhardwaj NP [address] [facility] [address] [place] [address] PCP - General Internal Medicine 04/08/25 Nandini Padgett MD [address] [place] [address] 11/01/24
--- OUTSIDE RECORDS SUMMARY | 2025-05-03 15:34 | XMS_ITS | Clinical Summary ---
Author Organization [facility] Address [address] [place] [id number] Care Team Providers Care Mental Health Technician Name Role Phone Elizabeth Pena April ALEXIS Primary Care Provider [phone] Allergies No known active allergies Medications vitamin D2, ergocalciferol, [address] UNITS capsule every 7 days. 09/05/2021 Active vitamin, low iron, ( VITAMIN WITH IRON) 27-0.8 MG tablet Take 1 tablet by mouth daily. Active Active Problems Problem Noted Date Diagnosed Date Heterozygous factor V Leiden mutation ([facility]) 12/04/2021 BMI 39.0-39.9,adult 12/04/2021 Family [...] 2019 Cervical Cancer Screening wi HPV 2019 PHQ-2 (Physician [place]) 08/18/2024 04/08/2024 COVID-19 Vaccine (3 - 2024-2 6 season) 2025 08/27/2021, 07/30/2021 Meningococcal B Vaccine Aged Out No l [...] [facility] Care Teams Mental Health Technician Relationship Specialty Start Date End Date Elizabeth Pena APNP [address] [place] [address] [phone] PCP - General NURSE PRACTITIONER 12/04/21
== END 2025-05-03 17:35 | disposition home or self-care (01) ==
LOC: ANHOBOP 13:51 → ANHOBPP 13:53
PROVIDERS: Visit Provider Obstetrics & Gynecology
DX: O13.9 Gestational [pregnancy-induced] hypertension without significant proteinuria, unspecified trimester (principal); O41.00X0 Oligohydramnios, unspecified trimester, not applicable or unspecified; Z3A.00 Weeks of gestation of pregnancy not specified
CPT/HCPCS: 36415; 76819; 80053; 81001; 82570; 84156; 84550; 85025; 87086

== ENCOUNTER 2025-05-04 18:47 | Outpatient (NON) | payer BC, SELFPAY ==
--- OUTSIDE RECORDS SUMMARY | 2025-05-04 07:29 | XMS_ITS | Encounter Summary ---
Author Organization [facility] Address [address] [place] [address] [place] [address] Care Team Providers Care Leather Leveler Name Role Phone Unavailable Primary Care Provider Unavailabl e Reason for Referral * (Routine) - Open Specialty Diagnoses / Procedures Referred By Loraine mcadams Referred To Contact Diagnoses Multigravida of advanced maternal age in second trimester (HCC) History of delivery, currently (HCC) Factor V Leiden carrier (HCC) History of premature rupture of membranes (PROM) in previous , currently in second trimester ([facility]) History of pre-eclampsia 31 weeks gestation of ([facility]) Obesity affecting in second trimester, unspecified obesity type ([facility]) Encounter for ultrasound ([facility]) Encounter for other screening follow-up ([facility]) Procedures Biophysical Profile w NST Juan Manuel Singh MD [address] [address] Phone: tel: fax: Referral ID Status Reason Start Date Expiration Date Visits Re quested Visits Authorized [id number] Open 03/22/2025 03/22/2026 6 6 Reason for Visit * Reason Comments Ultrasound Non-stress Test * (Routine) - Open Specialty Diagnoses / Procedures Referred By Loraine mcadams Referred To Contact Diagnoses Multigravida of advanced maternal age in second trimester (HCC) History of delivery, currently (HCC) Factor V Leiden carrier (HCC) History of premature rupture of membranes (PROM) in previous , currently in second trimester (HCC) History of pre-eclampsia 31 weeks gestation of (HCC) Obesity affecting in second trimester, unspecified obesity type (HCC) Encounter for ultrasound (HCC) Encounter for other screening follow-up (HCC) Procedures Biophysical Profile w NST Juan Manuel Singh MD [address] [facility] [address] [place] [address] Phone: tel: fax: Referral ID Status Reason Start Date Expiration Date Visits Re quested Visits Authorized [id number] Open 03/22/2025 03/22/2026 6 6 Encounter Details Date Type Department Care Team (Late st Contact Info) Description 05/04/2025 7:29 AM CDT Hospital Encounter [facility] Women's [facility] Maternal & Care [facility] [place] [address] Jaz Maza MD [address] [facility] [address] [place] [address] Social History Tobacco Use Types Packs/Day Years Used Date Smoking Tobacco: Former Cigarettes Smokeless Tobacco: Never Alcohol Use Standard Drinks/Week Comments Not Currently [...] file Not on file Not on file documented as of this encounter Last Filed Vital Signs Vital Sign Reading Time Taken Comments Blood Pressure 124/79 05/04/2025 7:53 AM CDT Pulse 69 05/04/2025 7:53 AM CDT Temperature - - Respiratory Rate - - Oxygen Saturation - - Inhaled Oxygen Concentration - - Weight 113.9 kg (251 lb) 05/04/2025 7:53 AM CDT Height - - Body Mass Index 40.51 03/09/2025 7:30 AM CDT documented in this encounter Progress Notes * Cecily Sharif, NEONATAL INTENSIVE CARE NURSE-FULL STACK DEVELOPER - 05/04/2025 9:48 AM CDT [facility] follow up visit Mague Veras is a 35 year old 37w0d. Patient agreeable to a video visit. We are following her for: -Advanced maternal age (AMA) 35 years at the [facility] -Prior complicated by spontaneous (sPTB) -Maternal thrombophilia (heterozygous Factor V leiden) -Pre- obesity Class I, BMI = 30.0-34.9 -Prior complicated by preeclampsia She has no complaints today. Reports compliance with LDASA 162mg daily. She reports good FM, no bleeding, no LOF, no DC, no cramps/contractions/pain/pressure, no CRUZ's, vision changes, RUQ pain, or swelling. Genetic screening/testing: cf-DNA Low Risk Her is complicated by: Patient Active Problem List Diagnosis Date Noted Factor V Leiden mutation affecting ([facility]) 05/04/2025 Priority: Not Prioritized BMI 40.0-44.9, adult ([facility]) 05/04/2025 Priority: Not Prioritized H/O pre-eclampsia in prior , currently , third trimester ([facility]) 05/04/2025 Priority: Not Prioritized History of delivery, currently ([facility]) 01/12/2025 Priority: Not Prioritized Advanced maternal age in multigravida, third trimester ([facility]) 01/12/2025 Priority: Not Prioritized Factor V Leiden carrier ([facility]) 01/12/2025 Priority: Not Prioritized History of premature rupture of membranes (PROM) in previous , currently in second trimester ([facility]) 01/12/2025 Priority: Not Prioritized History of pre-eclampsia 01/12/2025 Priority: Not Prioritized Obesity complicating , third trimester ([facility]) 01/12/2025 Priority: Not Prioritized Exam: BP 124/79 Pulse 69 Wt 113.9 kg (251 lb) General: NAD Abdomen: soft, NT Extremities: equal in size and width bilaterally, NT, 2+ edema bilaterally in LE (per instrument repair specialist) FHT: per US Urine dip: negative glucose, trace ketones, 1+ protein, negative blood Labs: Lupus Anticoagulant WNL Antithrombin III 105 Anticardiolipin antibody IgG/IgM: both negative Beta 2 Glycoprotein IgG and IgM: both negative Factor V Leiden, Heterozygous Activated Protein C Resistance: 1.8 (low) Protein S, Free: 71 Prothrombin [id number] Panel: not detected GCT 165 GTT 75/159/116/126 US: Please see report for details. LGA Impressions/Recs 1. IUP (Intrauterine ) at 37w0d 2. AMA cf-DNA Low Risk 3. Maternal thrombophilia (heterozygous Factor V leiden) W/u results as listed above and scanned into media No additional recommendations for prophylaxis 4. prior sPTB S/p Serial CL screening 5. History of preeclampsia Recommended to start 1x-weekly NST+BPP at 32 weeks (recommendation per initial [facility] consult) Continue LDASA 162 mg daily until delivery Discussed with patient if 24 hour urine is greater than 300 mg then delivery would be recommended. 6. Obesity - Nutrition counseling is appropriate if she has difficulty in keeping her weight down. - Activity/exercise in addition to dietary management is encouraged. - Total weight gain of </= 15 lbs. Active weight loss is not encouraged. - Would benefit from and PP weight loss 7. Reviewed kick counts (BID), as well as labor and preeclampsia warnings. 8. RTC: SQL SSRS DEVELOPER as clinically indicated, continue weekly testing 9. Keep all appointments with primary OB I spent 30 minutes with the patient, greater than 50% of the time was spent face to face in discussion with the patient the remainder of the time was spent in chart prep and data review. The patient is to follow up with her primary obstetrical care provider for her routine care and acute OB care including delivery as clinically indicated. Once again, we appreciate the opportunity to assist you in the care of your patient. If issues arise for which I can be of help before her next visit here, please contact me directly, or contact one of the [facility] physicians. JUNIOR Bernstein 05/04/2025 9:48 AM * Anu Carranza RN - 05/04/2025 7:55 AM CDT Patient here for testing and provider visit. Denies contractions, denies bleeding, leakage of fluid, and reports good movement. RN reviewed preeclampsia precautions. Denies headache, blurred vision, RUQ pain. Patient reports she was seen at OB office yesterday and they sent her to L&D for pre eclampsia workup due to edema in hands,face, ankles and feet. Reports her blood pressure was 128/88 in office yesterday. Patient reports H labs and sent patient home with 24 hour urine which she will turn in tonight. Patient has follow up LUZMARIA tomorrow with OB. Dr. Rodas told patient her LUZMARIA was 7.5. LUZMARIA is normal today, see ultrasound report for details. Patient is noted to have face puffiness, and +2 pitting edema in bilateral hand, ankles and feet Urine dip today Trace ketones, 1+ protein, Negative blood, glucose and leukocytes. Patient Vitals for the past 6 hrs: Pulse BP 05/04/25 0753 69 124/79 Anu Carranza RN 05/04/2025 8:06 AM NST -[place] Indication: Hx of labor due to preeclampsia, Obesity, AMA Uterine irritability: yes Contractions: irregular, x 2, 30-100 seconds, mild movement: Yes Monitoring mode: External Baseline FHR: 130 Variability: moderate Accelerations: Yes Decelerations: No Dr. Maza to review. Anu Carranza RN 05/04/2025 8:51 AM documented in this encounter Plan of Treatment Upcoming Encounters Date Type Department Care Team (Late st Contact Info) Description 05/13/2025 7:30 AM CDT Hospital Encounter [facility] Maternal & Care [address] [place] [id number] 05/20/2025 7:30 AM CDT Appointment [facility] Maternal & Care [address] [place] [phone] documented as of this encounter Procedures Procedure Name Priority Date/Time Associated Diagnosis Comments BIOPHYSICAL PROFILE W NST Routine 05/04/2025 7:31 AM CDT Multigravida of advanced maternal age in second trimester ([facility]) History of delivery, currently ([facility]) Factor V Leiden carrier ([facility]) History of premature rupture of membranes (PROM) in previous , currently in second trimester ([facility]) History of pre-eclampsia 31 weeks gestation of ([facility]) Obesity affecting in second trimester, unspecified obesity type ([facility]) Encounter for ultrasound ([facility]) Encounter for other screening follow-up ([facility]) documented in this encounter Results * Biophysical Profile w NST (05/04/2025 7:31 AM CDT) Linked Results Indication ======== Factor V Leiden deficiency complicating Large for dates Maternal obesity complicating , class 1 (BMI 30.0 - 34.9) Advanced maternal age (AMA), multigravida History ====== OB History 3. Para 1 [id number] 1. miscarriage 2019. Gest. age 34 w + 2 d. Weight 2,749 g. Sex of child: male. Details: Vaginal delivery; Pre-Eclampsia, PPROM Lab Tests Test Date Result NIPT Low risk, Male Maternal Assessment Physical Exam Height 173 cm, 5 ft 8 in. Weight 114 kg, 251 lb. Initial weight 97 kg, 213 lb. BMI 38.16 kg/m . Initial BMI 32.39 kg/m . Weight gain 17 kg, 38 lb Method ====== Transabdominal ultrasound, Transabdominal ultrasound examination. View: Sufficient ========= Hurst . Number of fetuses: 1 Dating ====== Date Details Gest. age GODFREY LMP 08/18/2024 37 w + 0 d 05/25/2025 Stated GODFREY 37 w + 0 d 05/25/2025 Previous U/S 09/30/2024 CRL 6.0 mm 37 w + 2 d 05/23/2025 Assigned dating based on the LMP, selected on 12/29/2024 37 w + 0 d 05/25/2025 General Evaluation Cardiac activity present. FHR 137 bpm. Presentation: cephalic Placenta: Placental site: anterior Amniotic Fluid Assessment ==== Amount of AF: normal MVP 5.8 cm. LUZMARIA 13.8 cm. Q1 0.7 cm, Q2 5.3 cm, Q3 2.0 cm, Q4 5.8 cm Biophysical Profile 2: breathing movements 2: Gross body movements 2: tone 2: Amniotic fluid volume NST: reactive 05/27 Biophysical profile score Non Stress Test NST interpretation: reactive. Baseline FHR 130 bpm. Baseline variability: moderate. Accelerations: present. Uterine activity: present, irregular Growth Overview Exam date GA BPD (mm) [...] male. Impression ========= Single, live, intrauterine at 37w 0d The amniotic fluid volume is normal. The biophysical profile is 05/27. Comment ======== ultrasound alone cannot detect all structural, genetic, or functional , placental, or maternal abnormalities Follow-up ======== Continue weekly testing until delivery. Coding ====== Diagnoses O09.523: Supervision of elderly multigravida O99.213, E66.811: Obesity complicating , class 1 (BMI 30.0 - 34.9) O99.113: Other diseases of the blood and blood-forming organs and certain disorders involving the immune mechanism complicating O36.63X0: Maternal care for excessive growth Procedures 39273: Biophysical Profile W NST 07856: [place] Uterus Limited [employer] PACS Anatomical Region Laterality Modality Other 05/04/2025 7:31 AM CDT Juan Manuel Yu MD [facility] ORDERABLES Edited Result - Final documented in this encounter Visit Diagnoses Diagnosis Multigravida of advanced maternal age in second trimester ([facility])- Primary History of premature rupture of membranes (PROM) in previous , currently in second trimester ([facility]) History of pre-eclampsia Obesity affecting in second trimester, unspecified obesity type ([facility]) Encounter for other screening follow-up ([facility]) 36 weeks gestation of ([facility]) state, incidental History of delivery, currently ([facility]) with history of pre-term labor Factor V Leiden carrier ([facility]) Primary hypercoagulable state 31 weeks gestation of ([facility]) state, incidental Encounter for ultrasound ([facility]) Encounter for routine screening for malformation using ultrasonics Advanced maternal age in multigravida, third trimester ([facility]) Obesity affecting in third trimester, unspecified obesity type ([facility]) Factor V Leiden mutation affecting ([facility]) Multigravida of advanced maternal age in second trimester ([facility])- Primary History of premature rupture of membranes (PROM) in previous , currently in second trimester ([facility]) History of pre-eclampsia Obesity affecting in second trimester, unspecified obesity type ([facility]) Encounter for other screening follow-up (HCC) Factor V Leiden carrier (HCC) Primary hypercoagulable state 37 weeks gestation of (HCC) state, incidental Encounter for ultrasound to assess growth (HCC) documented in this encounter
--- OUTSIDE RECORDS SUMMARY | 2025-05-04 19:13 | XMS_ITS | Clinical Summary ---
Author Organization [facility] Address [address] [place] [phone] Phone Care Team Providers Care Employment Representative Name Role Phone Unavailable Primary Care Provider [...] SMEAR 2019 INFLUENZA VACCINE (#1) 2025 Insurance [facility]
--- OUTSIDE RECORDS SUMMARY | 2025-05-04 19:13 | XMS_ITS | Clinical Summary ---
Author Organization [facility] Address [facility] [place] [address] Care Team Providers Care Tram Driver Name Role Phone Unavailable Primary Care Provider Unavailabl e Source Comments [facility],non-owned Affiliates and Associated Physician Practices is amultiple site organization consisting of ambulatory clinics and hospital sitesin [place], [place], [place] and [place]. This disclosure is being madepursuant to the Care Everywhere program and may not contain all information available regarding this patient. Last updated 18.[facility] Allergies No known active allergies Medications * [...] Active Problems Problem Noted Date Diagnosed Date Factor V Leiden mutation affecting BMI 40.0-44.9, adult 05/04/2025 H/O pre-eclampsia in prior p regnancy, currently , third trimester 05/04/2025 History of delivery, currently 01/12/2025 Advanced maternal age in multigravida, third tri mester 01/12/2025 Factor V Leiden carrier 01/12/2025 History of premature rupture of membranes (PROM) in previous , currently in second trimester 01/12/2025 History of pre-eclampsia 01/12/2025 Obesity complicating , third trimester 01/12/2025 Estimated Date of Delivery Comme nts Yes 05/25/2025 Based on last me nstrual period of 08/18/2024 Encounters Date Type Department Care Team Description 05/04/2025 7:29 AM CDT Hospital Encounter [facility] [address] [place] [address] Jaz Maza MD 04/29/2025 7:30 AM CDT - 04/29/2025 11:59 PM CDT Hospital Encounter [facility] [address] [place] [address] Elie Massey MD Discharge Disposition: Home or Self Care 04/29/2025 Travel 04/22/2025 7:28 AM CDT - 04/22/2025 11:59 PM CDT Hospital Encounter [facility] [address] [place] [address] Tennille Kim MD MANAGER FINE DINING Discharge Disposition: Home or Self Care 04/15/2025 7:26 AM CDT - 04/15/2025 11:59 PM CDT Hospital Encounter [facility] [address] [place] [address] Elie Massey MD Discharge Disposition: Home or Self Care 04/06/2025 8:07 AM CDT - 04/06/2025 11:59 PM CDT Hospital Encounter [facility] [address] [place] [address] Jaz Maza MD Discharge Disposition: Home or Self Care 04/01/2025 7:26 AM CDT - 04/01/2025 11:59 PM CDT Hospital Encounter [facility] [address] [place] [address] Dimas Singh MD MANAGER FINE DINING Discharge Disposition: Home or Self Care 03/09/2025 7:21 AM CDT - 03/09/2025 11:59 PM CDT Hospital Encounter [facility] [address] [place] [address] Elie Massey MD Discharge Disposition: Home or Self Care 02/04/2025 Telephone [facility] [address] [place] [address] Anu Carranza RN Results (Prothrombin gene mutation [...] (251 lb) 05/04/2025 7:53 AM CDT Height 167.6 cm (5' 6) 03/09/2025 7:30 AM CDT Body Mass Index 40.51 03/09/2025 7:30 AM CDT Plan of Treatment Upcoming Encounters Date Type Department Care Team (Late st Contact Info) Description 05/13/2025 7:30 AM CDT Hospital Encounter [facility] [address] [place] [address] 05/20/2025 7:30 AM CDT Appointment [facility] [address] [phone] Health Maintenance Due Date Last Done Comments [...] 07/30/2021 INFLUENZA VACCINE (#1) 2025 , 05/22/2021 OB-GROUP B STREP SCREEN 04/20/2025 04/08/2024 ZOSTER [...] on patient's age to complete this topic Respiratory Syncytial Virus (RSV) Vaccine Pt: or over 60 yrs (No Doses Required) Completed Procedures Procedure Name Priority Date/Time Associated Diagnosis Comments BIOPHYSICAL PROFILE W NST Routine 05/04/2025 7:31 AM CDT Multigravida of advanced maternal age in second trimester ([facility]) History of delivery, currently ([facility]) Factor V Leiden carrier ([facility]) History of premature rupture of membranes (PROM) in previous , currently in second trimester ([facility]) History of pre-eclampsia 31 weeks gestation of ([facility]) Obesity affecting in second trimester, unspecified obesity type ([facility]) Encounter for ultrasound ([facility]) Encounter for other screening follow-up ([facility]) BIOPHYSICAL PROFILE W NST Routine 04/29/2025 7:34 [...] follow-up (HCC) BIOPHYSICAL PROFILE W T Routine 04/22/2025 7:31 AM CDT Multigravida of [...] ultrasound (HCC) Encounter for other screening follow-up ([facility]) BIOPHYSICAL PROFILE W T Routine 04/15/2025 7:31 [...] ultrasound (HCC) Encounter for other screening follow-up ([facility]) BIOPHYSICAL PROFILE W [facility] Routine 04/06/2025 8:42 AM CDT Multigravida of [...] ultrasound (HCC) Encounter for other screening follow-up ([facility]) BIOPHYSICAL PROFILE W NST Routine 04/01/2025 7:33 AM CDT Multigravida of advanced maternal age in second trimester (HCC) History of delivery, currently (HCC) Factor V Leiden carrier (HCC) History of premature rupture of membranes (PROM) in previous , currently in second trimester (HCC) History of pre-eclampsia 31 weeks gestation of (HCC) Obesity affecting in second trimester, unspecified obesity type ([facility]) Encounter for ultrasound ([facility]) Encounter for other screening follow-up ([facility]) SONOGRAM - COMPLETE Routine 03/09/2025 7 :40 AM CDT Multigravida of advanced maternal age in second trimester (HCC) History of delivery, currently (HCC) Factor V Leiden carrier (HCC) History of premature rupture of membranes (PROM) in previous , currently in second trimester (HCC) History of pre-eclampsia Obesity affecting in second trimester, unspecified obesity type ([facility]) 29 weeks gestation of ([facility]) from Last 3 Months Results * Biophysical Profile w NST (05/04/2025 7:31 AM CDT) Only the most recent of6 resultswithin the time period is included. Linked Results Indication ======== Factor V Leiden deficiency complicating Large for dates Maternal obesity complicating , class 1 (BMI 30.0 - 34.9) Advanced maternal age (AMA), multigravida History ====== OB History 3. Para 1 [id number] 1. miscarriage 2019. Gest. age 34 w [...] volume is normal. The biophysical profile is 10. Comment ======== ultrasound alone cannot detect all [...] O36.63X0: Maternal care for excessive growth Procedures 02350: Biophysical Profile W NST 91654: US Uterus Limited [facility] [employer] PACS Anatomical Region Laterality Modality Other 05/04/2025 7:31 AM CDT us Juan Manuel Yu MD [facility] ORDERABLES Edited Result - Final * Sonogram - Complete (03/09/2025 7:40 AM CDT) Linked Results Indication ======== Maternal obesity complicating , class 1 (BMI 30.0 - 34.9) Advanced maternal age (AMA), multigravida Factor V Leiden deficiency complicating heterozygous History ====== OB History 3. Para 1 [id number] 1. miscarriage 2019. Gest. age 34 w [...] 4 lb 0 oz EFW by [facility] ([id number]-FL) LGA Growth Overview Exam date GA BPD [...] growth at 33 weeks Coding ====== Procedures 52731: US Preg Uterus Follow Up [facility] [employer] PACS Anatomical Region Laterality Modality Other 03/09/2025 7:40 AM CDT Juan Manuel Yu MD [facility] ORDERABLES Edited Result - Final from Last 3 Months Insurance [facility]
--- OUTSIDE RECORDS SUMMARY | 2025-05-04 19:13 | XMS_ITS | Clinical Summary ---
Author Organization [address] Address [address] [facility] [address] [place] [address] Care Team Providers Care Industrial Engineering Director Name Role Phone Tala Bhardwaj NP Primary Care Provider [phone] Nandini Padgett MD Unavailable [phone] Allergies No known active allergies Medications aspirin 81 mg chewable tablet Take 1 tablet (81 mg total) by mouth daily 2 daily 09/16/2024 Active vit 19-ctay-uxwre-dh a 27mg iron- 800 mcg-250 mg capsule [...] Description 04/08/2025 1:30 PM CDT Office Visit [facility] Family Medicine [address] [facility] [address] [place] [phone] Tala Bhardwaj NP Physical exam, annual [...] on file Legal Sex Female 11:22 AM CABLE SUPERVISOR Gender Identity Female 04/08/2025 2:03 PM CDT [...] patient's age to complete this topic Insurance [facility] [employer] CHOICE Care Teams Industrial Engineering Director Relationship Specialty Start Date End Date Tala Bhardwaj NP [address] [facility] [address] [place] [address] PCP - General Internal Medicine 04/08/25 Nandini Padgett MD [address] [place] [address] 11/01/24
[2025-05-04 19:14] VITALS: BMI 40.1
[2025-05-04 19:36] LABS: Total Volume 24 Hour Urine 1600 ml
[2025-05-04 20:04] LABS: Creatinine Clearance Urine 138.2 ml/min (75-125); Serum Creat 0.71; Total Protein Urine 24 Hr 144 mg/24hr (28-141); Total Protein Urine Random 9 mg/dL
== END 2025-05-04 18:48 | disposition home or self-care (01) ==
LOC: ANHOBOP 19:11
PROVIDERS: Visit Provider Obstetrics & Gynecology
DX: O13.9 Gestational [pregnancy-induced] hypertension without significant proteinuria, unspecified trimester (principal); Z3A.00 Weeks of gestation of pregnancy not specified
CPT/HCPCS: 81050; 82575; 84156

== ENCOUNTER 2025-05-05 07:52 | Outpatient (CLI) | payer BC, SELFPAY ==
--- OUTSIDE RECORDS SUMMARY | 2025-05-04 07:29 | XMS_ITS | Encounter Summary ---
Author Organization [facility] Address [address] [place] [address] [place] [address] Care Team Providers Care Curb Attendant Name Role Phone Unavailable Primary Care Provider [...] second trimester ([facility]) History of pre-eclampsia 31 weeks gestation of ([facility]) Obesity affecting in second trimester, unspecified obesity type ([facility]) Encounter for ultrasound ([facility]) Encounter for other screening follow-up ([facility]) Procedures Biophysical Profile w NST Juan Manuel Singh MD [address] [address] Phone: tel: fax: Referral ID Status Reason Start Date Expiration Date Visits Re quested Visits Authorized [id number] Open 03/22/2025 03/22/2026 6 6 Reason for Visit * Reason Comments Ultrasound Non-stress Test * (Routine) - Open Specialty Diagnoses / Procedures Referred By Loraine cmadams Referred To Contact Diagnoses Multigravida of advanced [...] w NST Juan Manuel Singh MD [address] [facility] [address] [place] [address] Phone: tel: fax: Referral ID Status Reason Start Date Expiration Date Visits Re quested Visits Authorized [id number] Open 03/22/2025 03/22/2026 6 6 Encounter Details Date Type Department Care Team (Latest Contact Info) Description 05/04/2025 7:29 AM CDT - 05/04/2025 11:59 PM CDT Hospital Encounter [facility] Maternal & Care [address] [place] [address] Jaz Maza MD [address] [facility] [address] [place] [address] Discharge Disposition: Home or Self Care Social History Tobacco Use Types Packs/Day Years [...] 7:30 AM CDT documented in this encounter Medications at Time of Discharge aspirin (Aspirin) 81 MG chew tablet Take 2 (two) tablets by mouth once daily (chew and swallow) docusate sodium (Colace) 100 MG capsule Take 1 (one) capsule by mouth once daily loratadine (Claritin) 10 MG tablet Take 1 (one) tablet by mouth at bedtime Vit-DSS-Fe Fum-FA ( vitamin with iron) tablet Take 1 (one) tablet by mouth once daily documented as of this encounter Progress Notes * Cecily Sharif, BANKRUPTCY LAW SPECIALIST-SOFTWARE QUALITY ASSURANCE ANALYST - 05/04/2025 9:48 AM CDT [facility] follow up visit Mague Veras is a 35 year old 37w0d. Patient agreeable to a video visit. We are following her for: -Advanced maternal age (AMA) 35 years at the [facility] -Prior complicated by spontaneous (sPTB) -Maternal [...] Date Noted Factor V Leiden mutation affecting ([facility]) 05/04/2025 Priority: Not Prioritized BMI 40.0-44.9, adult ([facility]) 05/04/2025 Priority: Not Prioritized H/O pre-eclampsia in prior , currently , third trimester ([facility]) 05/04/2025 Priority: Not Prioritized History of delivery, currently ([facility]) 01/12/2025 Priority: Not Prioritized Advanced maternal age in multigravida, third trimester ([facility]) 01/12/2025 Priority: Not Prioritized Factor V Leiden carrier ([facility]) 01/12/2025 Priority: Not Prioritized History of premature rupture of membranes (PROM) in previous , currently in second trimester ([facility]) 01/12/2025 Priority: Not Prioritized History of pre-eclampsia 01/12/2025 Priority: Not Prioritized Obesity complicating , third trimester (HCC) 01/12/2025 Priority: Not Prioritized Exam: BP 124/79 Pulse 69 Wt 113.9 kg (251 lb) General: NAD Abdomen: soft, NT Extremities: equal in size and width bilaterally, NT, 2+ edema bilaterally in LE (per sailing officer) FHT: per US Urine dip: negative glucose, trace ketones, 1+ protein, negative blood Labs: Lupus Anticoagulant WNL Antithrombin III 105 Anticardiolipin antibody IgG/IgM: both negative Beta 2 Glycoprotein IgG and IgM: both negative Factor V Leiden, Heterozygous Activated Protein C Resistance: 1.8 (low) Protein S, Free: 71 Prothrombin [id number] Panel: not detected GCT 165 GTT 75/159/116/126 [...] NST+BPP at 32 weeks (recommendation per initial MFM consult) Continue LDASA 162 mg daily until [...] as labor and preeclampsia warnings. 8. RTC: MEMBERSHIP SALES MANAGER as clinically indicated, continue weekly testing 9. [...] me directly, or contact one of the [facility] physicians. JUNIOR Bernstein 05/04/2025 9:48 AM * [...] was 128/88 in office yesterday. Patient reports PIH labs and sent patient home with 24 [...] Description 05/13/2025 7:30 AM CDT Hospital Encounter [facility] Maternal & Care [address] [place] [address] 05/20/2025 7:30 AM CDT Appointment [facility] Maternal & Care [address] [place] [address] documented as of this encounter Procedures Procedure Name Priority Date/Time Associated Diagnosis Comments BIOPHYSICAL PROFILE W NST Routine 05/04/2025 7:31 AM CDT Multigravida of advanced maternal age in second trimester ([facility]) History of delivery, currently ([facility]) Factor V Leiden carrier ([facility]) History of premature rupture of membranes (PROM) in previous , currently in second trimester ([facility]) History of pre-eclampsia 31 weeks gestation of ([facility]) Obesity affecting in second trimester, unspecified obesity type ([facility]) Encounter for ultrasound ([facility]) Encounter for other screening follow-up ([facility]) documented in this encounter Results * Biophysical Profile w NST (05/04/2025 7:31 AM CDT) Linked Results Indication ======== Factor V Leiden deficiency complicating Large for dates Maternal obesity complicating , class 1 (BMI 30.0 - 34.9) Advanced maternal age (AMA), multigravida History ====== OB History 3. Para 1 [id number] 1. miscarriage 2019. Gest. age 34 w [...] O36.63X0: Maternal care for excessive growth Procedures 05204: Biophysical Profile W NST 17275: US Uterus Limited [facility] [employer] PACS Anatomical Region Laterality Modality Other 05/04/2025 7:31 AM CDT Juan Manuel Yu MD [facility] ORDERABLES Edited Result - Final documented in this encounter Visit Diagnoses Diagnosis Multigravida of advanced maternal age in second trimester ([facility])- Primary History of premature rupture of membranes (PROM) in previous , currently in second trimester ([facility]) History of pre-eclampsia Obesity affecting in second trimester, unspecified obesity type ([facility]) Encounter for other screening follow-up ([facility]) 36 weeks gestation of ([facility]) state, incidental History of delivery, currently ([facility]) with history of pre-term labor Factor V Leiden carrier ([facility]) Primary hypercoagulable state 31 weeks gestation of (HCC) state, incidental Encounter for ultrasound ([facility]) Encounter for routine screening for malformation using ultrasonics Advanced maternal age in multigravida, third trimester (HCC) Obesity affecting in third trimester, unspecified obesity type ([facility]) Factor V Leiden mutation affecting ([facility]) Multigravida of advanced maternal age in second trimester ([facility])- Primary History of premature rupture of membranes (PROM) in previous , currently in second trimester ([facility]) History of pre-eclampsia Obesity affecting in second trimester, unspecified obesity type ([facility]) Encounter for other screening follow-up ([facility]) Factor V Leiden carrier ([facility]) Primary hypercoagulable state 37 weeks gestation of ([facility]) state, incidental Encounter for ultrasound to assess growth ([facility]) documented in this encounter
[2025-05-05] VITALS (11 sets, daily range): BP systolic 117–129; BP diastolic 74–79; PULSE 68–89; O2SAT 99–100
--- NOTE | ~2025-05-05 | US_ITS ---
EXAMINATION: US OB BPP wo non-stress DATE: 05/05/2025 09:16 INDICATION: Preeclampsia. Third trimester. TECHNIQUE: Real-time pelvic ultrasound was performed. COMPARISON: Ultrasound 05/03/2025 FINDINGS: There is a single living fetus in vertex presentation. The placenta is anterior. heart rate is 140 beats per minute (bpm). The amniotic fluid index is 9.5 cm which is normal. Biophysical profile performed by the technologist: breathing (30 sec sustained breathing in 30 minutes): 2 out of 2 movement (3 gross body movements in 30 minutes): 2 out of 2 tone (one episode of jiudlgy-frvkfdybv-clyppvm limb movement): 2 out of 2 Amniotic fluid pocket (2 cm): 2 out of 2 Total score: 8 out of 8 IMPRESSION: 1. Single living fetus in vertex presentation. 2. Biophysical profile 8 out of 8. Reviewed, dictated and finalized at location E.
--- OUTSIDE RECORDS SUMMARY | 2025-05-05 08:17 | XMS_ITS | Clinical Summary ---
Author Organization [facility] Address [address] [place] [address] Care Team Providers Care Paper Rewinder Operator Name Role Phone BeckyElizabeth valencia April ALEXIS Primary Care Provider [phone] Allergies No known active allergies Medications vitamin D2, ergocalciferol, [address]805 UNITS capsule every 7 days. 09/05/2021 Active vitamin, low iron, ( VITAMIN WITH IRON) 27-0.8 MG tablet Take 1 tablet by mouth daily. Active Active Problems Problem Noted Date Diagnosed Date Heterozygous factor V Leiden mutation ([facility]) 12/04/2021 BMI 39.0-39.9,adult 12/04/2021 Family History Medical [...] Cancer Screening wi HPV 2019 PHQ-2 ([facility] [place]) 08/18/2024 04/08/2024 COVID-19 Vaccine (3 - 2024-2 [...] patient's age to complete this topic Insurance [facility] Care Teams Paper Rewinder Operator Relationship Specialty Start Date End Date Elizabeth Pena APNP [address] [place] [address] [phone] PCP - General NURSE PRACTITIONER 12/04/21
--- OUTSIDE RECORDS SUMMARY | 2025-05-05 08:17 | XMS_ITS | Clinical Summary ---
Author Organization [facility] Address [address] [place] [phone] Phone Care Team Providers Care Controls Designer Name Role Phone Unavailable Primary Care Provider [...] SMEAR 2019 INFLUENZA VACCINE (#1) 2025 Insurance [facility] BLUE ACCESS CHOICE [facility]
--- OUTSIDE RECORDS SUMMARY | 2025-05-05 08:17 | XMS_ITS | Clinical Summary ---
Author Organization [facility] Address [facility] [facility] [address] Care Team Providers Care Melter Loader Name Role Phone Unavailable Primary Care Provider Unavailabl e Source Comments [facility],non-owned Affiliates and Associated Physician Practices is amultiple site organization consisting of ambulatory clinics and hospital sitesin [place], [place], [place] and [place]. This disclosure is being madepursuant to the Care Everywhere program and may not contain all information available regarding this patient. Last updated 18.[facility] Allergies No known active allergies Medications * [...] Care Team Description 05/04/2025 7:29 AM CDT - 05/04/2025 11:59 PM CDT Hospital Encounter [facility] M[facility] & Care [address] [place] [address] Jaz Maza MD Discharge Disposition: Home or Self Care 04/29/2025 7:30 AM CDT - 04/29/2025 11:59 PM CDT Hospital Encounter [facility] [address] [place] [address] Elie Massey MD Discharge Disposition: Home or Self Care 04/29/2025 Travel 04/22/2025 7:28 AM CDT - 04/22/2025 11:59 PM CDT Hospital Encounter [facility] [address] [place] [address] Tennille Kim MD EQUIPMENT SERVICE ENGINEER Discharge Disposition: Home or Self Care 04/15/2025 7:26 AM CDT - 04/15/2025 11:59 PM CDT Hospital Encounter [facility] [address] [place] [address] Elie Massey MD Discharge Disposition: Home or Self Care 04/06/2025 8:07 AM CDT - 04/06/2025 11:59 PM CDT Hospital Encounter [facility] [address] [place] [address] Jaz Maza MD Discharge Disposition: Home or Self Care 04/01/2025 7:26 AM CDT - 04/01/2025 11:59 PM CDT Hospital Encounter [facility] Care [address] [place] [address] Dimas Singh MD EQUIPMENT SERVICE ENGINEER Discharge Disposition: Home or Self Care 03/09/2025 7:21 AM CDT - 03/09/2025 11:59 PM CDT Hospital Encounter [facility] Care [address] [place] [address] Elie Massey MD Discharge Disposition: Home or Self Care 02/04/2025 Telephone [facility] [address] [place] [address] Anu Carranza RN Results (Prothrombin gene mutation [...] Description 05/13/2025 7:30 AM CDT Hospital Encounter [facility] Care [address] [place] [address] 05/20/2025 7:30 AM CDT Appointment [facility] M[facility] & Care [address] [place] [address] Health Maintenance Due Date Last Done Comments [...] of advanced maternal age in second trimester ([facility]) History of delivery, currently ([facility]) Factor V Leiden carrier ([facility]) History of premature rupture of membranes (PROM) in previous , currently in second trimester ([facility]) History of pre-eclampsia 31 weeks gestation of ([facility]) Obesity affecting in second trimester, unspecified obesity type ([facility]) Encounter for ultrasound ([facility]) Encounter for other screening follow-up (HCC) BIOPHYSICAL PROFILE W T Routine 04/29/2025 7:34 AM CDT Multigravida of [...] ultrasound (HCC) Encounter for other screening follow-up ([facility]) BIOPHYSICAL PROFILE W T Routine 04/22/2025 7:31 [...] ultrasound (HCC) Encounter for other screening follow-up ([facility]) BIOPHYSICAL PROFILE W T Routine 04/15/2025 7:31 [...] ultrasound (HCC) Encounter for other screening follow-up ([facility]) BIOPHYSICAL PROFILE W T Routine 04/06/2025 8:42 [...] ultrasound (HCC) Encounter for other screening follow-up ([facility]) BIOPHYSICAL PROFILE W NST Routine 04/01/2025 7:33 [...] ultrasound (HCC) Encounter for other screening follow-up ([facility]) SONOGRAM - COMPLETE Routine 03/09/2025 7 :40 AM CDT Multigravida of advanced maternal age in second trimester (HCC) History of delivery, currently (HCC) Factor V Leiden carrier (HCC) History of premature rupture of membranes (PROM) in previous , currently in second trimester (HCC) History of pre-eclampsia Obesity affecting in second trimester, unspecified obesity type (HCC) 29 weeks gestation of ([facility]) from Last 3 Months Results * Biophysical Profile w NST (05/04/2025 7:31 AM CDT) Only the most recent of6 resultswithin the time period is included. Linked Results Indication ======== Factor V Leiden deficiency complicating Large for dates Maternal obesity complicating , class 1 (BMI 30.0 - 34.9) Advanced maternal age (AMA), multigravida History ====== OB History 3. Para 1 [id number] 1. miscarriage 2019. Gest. age 34 w [...] O36.63X0: Maternal care for excessive growth Procedures 35673: Biophysical Profile W NST 10786: US Uterus Limited [facility] [employer] PACS Anatomical Region Laterality Modality Other 05/04/2025 7:31 AM CDT Juan Manuel Yu MD [facility] ORDERABLES Edited Result - Final * Sonogram - Complete (03/09/2025 7:40 AM CDT) Linked Results Indication ======== Maternal obesity complicating , class 1 (BMI 30.0 - 34.9) Advanced maternal age (AMA), multigravida Factor V Leiden deficiency complicating heterozygous History ====== OB History 3. Para 1 [id number] 1. miscarriage 2019. Gest. age 34 w [...] 4 lb 0 oz EFW by [facility] ([id number]-FL) LGA Growth Overview Exam date GA BPD [...] growth at 33 weeks Coding ====== Procedures 99916: US Preg Uterus Follow Up [facility] [employer] PACS Anatomical Region Laterality Modality Other 03/09/2025 7:40 AM CDT Juan Manuel Yu MD [facility] ORDERABLES Edited Result - Final from Last 3 Months Insurance [employer]
--- OUTSIDE RECORDS SUMMARY | 2025-05-05 08:17 | XMS_ITS | Clinical Summary ---
Author Organization [address] Address [address] [place] [address] [address] [place] [address] Care Team Providers Care Judo Instructor Name Role Phone Tala Bhardwaj NP Primary Care Provider [phone] Nandini Padgett MD Unavailable [phone] Allergies No known active allergies Medications aspirin 81 mg chewable tablet Take 1 tablet (81 mg total) by mouth daily 2 daily 09/16/2024 Active vit 71-xswz-nyhbd-dh a 27mg iron- 800 mcg-250 mg capsule [...] Description 04/08/2025 1:30 PM CDT Office Visit [facility] Family Medicine [address] [facility] [address] [place] [phone] Tala Bhardwaj NP Physical exam, annual [...] on file Legal Sex Female 11:22 AM GERIATRICIAN Gender Identity Female 04/08/2025 2:03 PM CDT [...] patient's age to complete this topic Insurance [facility] [id number] CHO[employer] Care Teams Judo Instructor Relationship Specialty Start Date End Date Tala Bhardwaj NP [address] [facility] [address] [place] [address] PCP - General Internal Medicine 04/08/25 Nandini Padgett MD [address] [place] [address] 11/01/24
[2025-05-05 08:18] LABS: Hematocrit 40.1 % (37.0-47.0); Hemoglobin 12.8 g/dL (12.0-15.0); Immature Granulocyte Percent A 0.3 % (0-0.5); Lymphocytes Absolute Auto 2.19 K/mm3 (0.9-3.2); Mean Corpuscular HGB Conc 31.9 g/dl (32-36); Mean Corpuscular Hemoglobin 26.6 pg (26-34); Mean Corpuscular Volume 83.4 fl (80-100); Nucleated Red Blood Cells Absolute Auto 0.000 K/mm3 (0.0-0.012); Nucleated Red Blood Cells Perc 0.0 % (0.0-0.2); Platelet Count Result 173 k/mm3 (150-375); Red Blood Count 4.81 M/mm3 (4.2-5.4); White Blood Count 10.1 K/mm3 (4.5-10.0)
[2025-05-05 08:19] LABS: Add Urine Microscopic? YES; Appearance Urine Cloudy (Clear); Glucose Urine UA Negative (Negative); Leukocyte Esterase Ur 2+ LEU/UL (Negative); Nitrate Urine Negative (Negative); Non Pathogenic Casts 0-2; Specific Grav Ur 1.017 (1.001-1.035)
[2025-05-05 08:22] LABS: Total Protein Urine Random 11 mg/dL; Ur Ttl Prot Creatinine Ratio 0.09 mg/mg (0-0.20)
[2025-05-05 08:26] LABS: Alanine Aminotransferase 21 U/L (6-35); Albumin Level 3.6 g/dL (3.5-5.1); Alkaline Phosphatase 128 U/L (38-126); Anion Gap 7 mmol/L (4-12); Aspartate Amino Transferase 33 U/L (14-36); Bilirubin,Total 0.3 mg/dL (0.2-1.3); Blood Urea Nitrogen 8 mg/dL (7-17); Calcium 8.8 mg/dL (8.4-10.2); Carbon Dioxide 23 mmol/L (22-30); Chloride 103 mmol/L (98-107); Estimated Glomerular Filt Rate > 60; Glucose 85 mg/dL (65-110); Potassium 3.9 mmol/L (3.4-5.0); Sodium 133 mmol/L (137-145); Total Protein 7.1 g/dL (6.3-8.2); Uric Acid 5.6 mg/dL (2.5-7.5)
== END 2025-05-05 09:45 | disposition home or self-care (01) ==
LOC: ANHOBOP 07:56 → ANHLDR 07:58
PROVIDERS: Visit Provider Obstetrics & Gynecology
DX: O13.9 Gestational [pregnancy-induced] hypertension without significant proteinuria, unspecified trimester (principal); Z3A.00 Weeks of gestation of pregnancy not specified
CPT/HCPCS: 36415; 59025; 76819; 80053; 81001; 82570; 84156; 84550; 85025; 99199

== ENCOUNTER 2025-05-10 09:44 | Outpatient (CLI) | payer BC, SELFPAY ==
--- NOTE | ~2025-05-10 | US_ITS ---
EXAMINATION: US OB limited DATE: 05/10/2025 11:23 INDICATION: Hypertension during third trimester TECHNIQUE: Real-time ultrasound of the pelvis was performed. The interpreting radiologist was not present for the study. COMPARISON: None. FINDINGS: There is a single living fetus in vertex presentation. The placenta is anterior. heart rate is 146 beats per minute (bpm). The amniotic fluid index is 10.8 cm, which is normal. (5th%-95%: 7.5-34.4 cm at 37 weeks estimated gestational age). IMPRESSION: 1. Single living fetus in vertex presentation with heart rate of 146 bpm. 2. Normal amniotic fluid index of 10.8 cm. Reviewed, dictated and finalized at location A. IMPRESSION: 1. Single living fetus in vertex presentation with heart rate of 146 bpm . 2. Normal amniotic fluid index of 10.8 cm.
[2025-05-10 10:04] VITALS: BP 141/83; PULSE 87
[2025-05-10 10:16] VITALS: BP 135/83; PULSE 81
[2025-05-10 10:28] LABS: Hematocrit 38.2 % (37.0-47.0); Hemoglobin 12.4 g/dL (12.0-15.0); Immature Granulocyte Percent A 0.7 % (0-0.5); Immature Platelet Fraction Pct 13.6 % (0.9-11.2); Lymphocytes Absolute Auto 1.87 K/mm3 (0.9-3.2); Mean Corpuscular HGB Conc 32.5 g/dl (32-36); Mean Corpuscular Hemoglobin 26.6 pg (26-34); Mean Corpuscular Volume 81.8 fl (80-100); Nucleated Red Blood Cells Absolute Auto 0.000 K/mm3 (0.0-0.012); Nucleated Red Blood Cells Perc 0.0 % (0.0-0.2); Platelet Count Result 175 k/mm3 (150-375); Red Blood Count 4.67 M/mm3 (4.2-5.4); White Blood Count 10.2 K/mm3 (4.5-10.0)
[2025-05-10 10:30] VITALS: BP 141/83
[2025-05-10 10:31] VITALS: BP 136/77; PULSE 77
[2025-05-10 10:33] LABS: Add Urine Microscopic? YES; Appearance Urine Cloudy (Clear); Glucose Urine UA Negative (Negative); Leukocyte Esterase Ur 1+ LEU/UL (Negative); Nitrate Urine Negative (Negative); Non Pathogenic Casts 0-2; Specific Grav Ur 1.011 (1.001-1.035)
--- OUTSIDE RECORDS SUMMARY | 2025-05-10 10:36 | XMS_ITS | Clinical Summary ---
Author Organization [address] Address [address] [facility] [address] [place] [address] Care Team Providers Care Open Tenter Operator Name Role Phone Tala Bhardwaj NP Primary Care Provider [phone] Nandini Padgett MD Unavailable [phone] Allergies No known active allergies Medications aspirin 81 mg chewable tablet Take 1 tablet (81 mg total) by mouth daily 2 daily 09/16/2024 Active vit 33-ahty-bdejn-dh a 27mg iron- 800 mcg-250 mg capsule [...] Description 04/08/2025 1:30 PM CDT Office Visit [facility] Family Medicine [address] [facility] [address] [place] [phone] Tala Bhardwaj NP Physical exam, annual [...] on file Legal Sex Female 11:22 AM SCUBA DIVING TEACHER Gender Identity Female 04/08/2025 2:03 PM CDT [...] patient's age to complete this topic Insurance [facility]ENDING S[facility] [employer] CHO[employer] Care Teams Open Tenter Operator Relationship Specialty Start Date End Date Tala Bhardwaj NP [address] [facility] [address] [place] [address] PCP - General Internal Medicine 04/08/25 Nandini Padgett MD [address] [place] [address] 11/01/24
--- OUTSIDE RECORDS SUMMARY | 2025-05-10 10:36 | XMS_ITS | Clinical Summary ---
Author Organization [facility] Address [address] [place] [address] Care Team Providers Care Socially Responsible Investment Adviser Name Role Phone Elizabeth Pena April ALEXIS Primary Care Provider [phone] Allergies No known active allergies Medications vitamin D2, ergocalciferol, [address] UNITS capsule every 7 days. 09/05/2021 Active vitamin, low iron, ( VITAMIN WITH IRON) 27-0.8 MG tablet Take 1 tablet by mouth daily. Active Active Problems Problem Noted Date Diagnosed Date Heterozygous factor V Leiden mutation ([facility]) 12/04/2021 BMI 39.0-39.9,adult 12/04/2021 Family History [...] Cancer Screening wi HPV 2019 PHQ-2 ([facility] [place]) 08/18/2024 04/08/2024 COVID-19 Vaccine (3 - 2024-2 [...] [facility] Care Teams Socially Responsible Investment Adviser Relationship Specialty Start Date End Date Elizabeth Pena APNP [address] [place] [address] [phone] PCP - General NURSE PRACTITIONER 12/04/21
--- OUTSIDE RECORDS SUMMARY | 2025-05-10 10:36 | XMS_ITS | Clinical Summary ---
Author Organization [facility] Address [facility] [facility] [place] [address] Care Team Providers Care Assistant Quality Manager Name Role Phone Unavailable Primary Care Provider Unavailabl e Source Comments [facility] [employer],non-owned Affiliates and Associated Physician Practices is amultiple site organization consisting of ambulatory clinics and hospital sitesin [place], [place], [place] and [place]. This disclosure is being madepursuant to the Care Everywhere program and may not contain all information available regarding this patient. Last updated 18.[facility] [employer] Allergies No known active allergies Medications * [...] - 05/04/2025 11:59 PM CDT Hospital Encounter [facility] [address] [place] [address] [id number] Jaz Maza MD Discharge Disposition: Home or Self Care 04/29/2025 7:30 AM CDT - 04/29/2025 11:59 PM CDT Hospital Encounter [facility] [address] [place] [address] [id number] Elie Massey MD Discharge Disposition: Home or Self Care 04/29/2025 Travel 04/22/2025 7:28 AM CDT - 04/22/2025 11:59 PM CDT Hospital Encounter [facility] [address] [place] [address] [id number] Tennille Kim MD NUMERICAL CONTROL PROGRAMMER Discharge Disposition: Home or Self Care 04/15/2025 7:26 AM CDT - 04/15/2025 11:59 PM CDT Hospital Encounter [facility] [address] [place] [address] [id number] Elie Massey MD Discharge Disposition: Home or Self Care 04/06/2025 8:07 AM CDT - 04/06/2025 11:59 PM CDT Hospital Encounter [facility] [address] [place] [address] [id number] Jaz Maza MD Discharge Disposition: Home or Self Care 04/01/2025 7:26 AM CDT - 04/01/2025 11:59 PM CDT Hospital Encounter [facility] [address] [place] [address] 09046 Dimas Singh MD NUMERICAL CONTROL PROGRAMMER Discharge Disposition: Home or Self Care 03/09/2025 7:21 AM CDT - 03/09/2025 11:59 PM CDT Hospital Encounter [facility] [address] [place] [address] Elie Massey MD Discharge Disposition: Home or [...] Description 05/13/2025 7:30 AM CDT Hospital Encounter [facility] [address] [place] [address] 05/20/2025 7:30 AM CDT Appointment [facility] [address] [place] [address] Health Maintenance Due Date Last Done Comments [...] follow-up ([facility]) BIOPHYSICAL PROFILE W NST Routine 04/29/2025 7:34 AM CDT Multigravida of advanced maternal age in second trimester ([facility]) History of delivery, currently (HCC) Factor V Leiden carrier (HCC) History of premature rupture of membranes (PROM) in previous , currently in second trimester (HCC) History of pre-eclampsia 31 weeks gestation of (HCC) Obesity affecting in second trimester, unspecified obesity type (HCC) Encounter for ultrasound (HCC) Encounter for other screening follow-up (HCC) BIOPHYSICAL PROFILE W [facility] Routine 04/22/2025 7:31 AM CDT Multigravida of [...] other screening follow-up (HCC) BIOPHYSICAL PROFILE W [facility] Routine 04/15/2025 7:31 AM CDT Multigravida of [...] other screening follow-up (HCC) BIOPHYSICAL PROFILE W [facility] Routine 04/06/2025 8:42 AM CDT [...] other screening follow-up (HCC) BIOPHYSICAL PROFILE W [facility] Routine 04/01/2025 7:33 AM CDT Multigravida of [...] follow-up ([facility]) SONOGRAM - COMPLETE Routine 03/09/2025 7 :40 AM CDT Multigravida of advanced maternal age in second trimester (HCC) History of delivery, currently ([facility]) Factor V Leiden carrier (HCC) History of premature rupture of membranes (PROM) in previous , currently in second trimester (HCC) History of pre-eclampsia Obesity affecting in second trimester, unspecified obesity type ([facility]) 29 weeks gestation of ([facility]) from Last 3 Months Results * Biophysical Profile w NST (05/04/2025 7:31 AM CDT) Only the most recent of6 resultswithin the time period is included. Linked Results Indication ======== Factor V Leiden deficiency complicating Large for dates Maternal obesity complicating , class 1 (BMI 30.0 - 34.9) Advanced maternal age (AMA), multigravida History ====== OB History 3. Para 1 [id number] 1. miscarriage 2019. Gest. age 34 w [...] O36.63X0: Maternal care for excessive growth Procedures 28485: Biophysical Profile W NST 45176: US Uterus Limited P[employer] PACS Anatomical Region Laterality Modality Other 05/04/2025 7:31 AM CDT Juan Manuel Yu MD [facility] ORDERABLES Edited Result - Final * Sonogram - Complete (03/09/2025 7:40 AM CDT) Linked Results Indication ======== Maternal obesity complicating , class 1 (BMI 30.0 - 34.9) Advanced maternal age (AMA), multigravida Factor V Leiden deficiency complicating heterozygous History ====== OB History 3. Para 1 [id number] 1. miscarriage 2019. Gest. age 34 w [...] 4 lb 0 oz EFW by Hadlock ([id number]) LGA Growth Overview Exam date GA BPD [...] growth at 33 weeks Coding ====== Procedures [id number]: US Preg Uterus Follow Up [facility] Refer[facility] PACS Anatomical Region Laterality Modality Other 03/09/2025 7:40 AM CDT us Juan Manuel Yu MD [facility] ORDERABLES Edited Result - Final from Last 3 Months Insurance [employer]
--- OUTSIDE RECORDS SUMMARY | 2025-05-10 10:36 | XMS_ITS | Clinical Summary ---
Author Organization [facility] Address [address] [place] [phone] Phone Care Team Providers Care Hyperion Analyst Name Role Phone Unavailable Primary Care Provider [...] SMEAR 2019 INFLUENZA VACCINE (#1) 2025 Insurance [facility] BLUE ACCESS CHOICE [facility]
[2025-05-10 10:41] VITALS: BP 141/83; PULSE 83
[2025-05-10 10:47] LABS: Total Protein Urine Random 48 mg/dL; Ur Ttl Prot Creatinine Ratio 0.68 mg/mg (0-0.20)
[2025-05-10 10:50] LABS: Alanine Aminotransferase 21 U/L (6-35); Albumin Level 3.5 g/dL (3.5-5.1); Alkaline Phosphatase 130 U/L (38-126); Anion Gap 9 mmol/L (4-12); Aspartate Amino Transferase 30 U/L (14-36); Bilirubin,Total 0.2 mg/dL (0.2-1.3); Blood Urea Nitrogen 8 mg/dL (7-17); Calcium 8.9 mg/dL (8.4-10.2); Carbon Dioxide 19 mmol/L (22-30); Chloride 106 mmol/L (98-107); Estimated Glomerular Filt Rate > 60; Glucose 90 mg/dL (65-110); Potassium 4.1 mmol/L (3.4-5.0); Sodium 134 mmol/L (137-145); Total Protein 6.8 g/dL (6.3-8.2); Uric Acid 5.7 mg/dL (2.5-7.5)
--- NOTE | 2025-05-10 11:49 | PC.NURSE ---
Discussed BPs of 141/83 and 135/83. LUZMARIA 10.8. PC ratio 0.68. Orders received for pt. to complete a 24 hour urine and to come back sunday 05/13 for a repeat NST, BP check and LUZMARIA.
== END 2025-05-10 12:05 | disposition home or self-care (01) ==
LOC: ANHOBOP 09:47 → ANHOBPP 09:47
PROVIDERS: Visit Provider Obstetrics & Gynecology
DX: O13.9 Gestational [pregnancy-induced] hypertension without significant proteinuria, unspecified trimester (principal); Z3A.00 Weeks of gestation of pregnancy not specified
CPT/HCPCS: 36415; 59025; 76815; 80053; 81001; 82570; 84156; 84550; 85025; 85055; 99199

== ENCOUNTER 2025-05-11 14:44 | Outpatient (NON) | payer BC, SELFPAY ==
[2025-05-11 15:00] VITALS: BMI 41.1
--- OUTSIDE RECORDS SUMMARY | 2025-05-11 15:05 | XMS_ITS | Clinical Summary ---
Author Organization [facility] Address [address] [place] [phone] Phone Care Team Providers Care Configuration Management Advisor Name Role Phone Unavailable Primary Care Provider [...] SMEAR 2019 INFLUENZA VACCINE (#1) 2025 Insurance [facility] BLUE ACCESS CHOICE [facility]
--- OUTSIDE RECORDS SUMMARY | 2025-05-11 15:05 | XMS_ITS | Clinical Summary ---
Author Organization [address] Address [address] [facility] [address] [place] [address] Care Team Providers Care Credit Portfolio Advisor Name Role Phone Tala Bhardwaj NP Primary Care Provider [phone] Nandini Padgett MD Unavailable [phone] Allergies No known active allergies Medications aspirin 81 mg chewable tablet Take 1 tablet (81 mg total) by mouth daily 2 daily 09/16/2024 Active vit 17-klsc-kwdio-dh a 27mg iron- 800 mcg-250 mg capsule [...] Description 04/08/2025 1:30 PM CDT Office Visit [facility] Family Medicine [address] [facility] [address] [place] [phone] Tala Bhardwaj NP Physical exam, annual [...] on file 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
--- OUTSIDE RECORDS SUMMARY | 2025-05-11 15:05 | XMS_ITS | Clinical Summary ---
Author Organization [facility] Address [address] [place] [id number] Care Team Providers Care Carbon Paper Coating Supervisor Name Role Phone Elizabeth Pena April ALEXIS Primary Care Provider [phone] Allergies No known active allergies Medications vitamin D2, ergocalciferol, [address] UNITS capsule every 7 days. 09/05/2021 Active vitamin, low iron, ( VITAMIN WITH IRON) 27-0.8 MG tablet Take 1 tablet by mouth daily. Active Active Problems Problem Noted Date Diagnosed Date Heterozygous factor V Leiden mutation ([facility]) 12/04/2021 BMI 39.0-39.9,adult 12/04/2021 Family History [...] Cancer Screening wi HPV 2019 PHQ-2 (Physician Dougherty) 08/18/2024 04/08/2024 COVID-19 Vaccine (3 - 2024-2 [...] patient's age to complete this topic Insurance [facility] Care Teams Carbon Paper Coating Supervisor Relationship Specialty Start Date End Date Elizabeth Pena APNP [address] [place] [phone] PCP - General NURSE PRACTITIONER 12/04/21
[2025-05-11 16:20] LABS: Total Volume 24 Hour Urine 2300 ml
[2025-05-11 16:22] LABS: Total Volume 24 Hour Urine 2300 ml
[2025-05-11 16:27] LABS: Total Protein Urine 24 Hr 299 mg/24hr (28-141); Total Protein Urine Random 13 mg/dL
[2025-05-11 16:33] LABS: Creatinine Clearance Urine 150.0 ml/min (75-125); Serum Creat 0.67
== END 2025-05-11 14:45 | disposition home or self-care (01) ==
LOC: ANHOBOP 15:03
PROVIDERS: Visit Provider Obstetrics & Gynecology
DX: O13.9 Gestational [pregnancy-induced] hypertension without significant proteinuria, unspecified trimester (principal); Z3A.00 Weeks of gestation of pregnancy not specified
CPT/HCPCS: 81050; 82575; 84156

== ENCOUNTER 2025-05-20 04:15 | Inpatient (IN) | payer BC, SELFPAY ==
[2025-05-20] VITALS (62 sets, daily range): BP systolic 103–156; BP diastolic 72–102; PULSE 70–129; RESP 16–28; TEMP 36.3–37.2; O2SAT 96–100; BMI 42.0
--- OUTSIDE RECORDS SUMMARY | 2025-05-20 04:30 | XMS_ITS | Clinical Summary ---
Author Organization [address] Address [address] [place] [address] [address] [place] [address] Care Team Providers Care Stunt Double Name Role Phone Tala Bhardwaj NP Primary Care Provider [phone] Nandini Padgett MD Unavailable [phone] Allergies No known active allergies Medications aspirin 81 mg chewable tablet Take 1 tablet (81 mg total) by mouth daily 2 daily 09/16/2024 Active vit 27-sajz-lojdn-dh a 27mg iron- 800 mcg-250 mg capsule [...] Description 04/08/2025 1:30 PM CDT Office Visit [facility] [address] [facility] [address] [place] [phone] Tala Bhardwaj NP Physical exam, annual [...] on file 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
--- OUTSIDE RECORDS SUMMARY | 2025-05-20 04:30 | XMS_ITS | Clinical Summary ---
Author Organization [facility] Address [address] [place] [address] Care Team Providers Care Clam Shovel Operator Name Role Phone BeckyElizabeth valencia April ALEXIS Primary Care Provider [phone] Allergies No known active allergies Medications vitamin D2, ergocalciferol, [address] UNITS capsule every 7 days. 09/05/2021 Active vitamin, low iron, ( VITAMIN WITH IRON) 27-0.8 MG tablet Take 1 tablet by mouth daily. Active Active Problems Problem Noted Date Diagnosed Date Heterozygous factor V Leiden mutation ([facility]) 12/04/2021 BMI 39.0-39.9,adult 12/04/2021 Family History Medical [...] Cancer Screening wi HPV 2019 PHQ-2 (Physician Chenega) 08/18/2024 04/08/2024 COVID-19 Vaccine (3 - 2024-2 6 season) 2025 08/27/2021, 07/30/2021 Influenza Adult (#1) 2025 Meningococcal B Vaccine Aged Out No l [...] [facility] Care Teams Clam Shovel Operator Relationship Specialty Start Date End Date Elizabeth Pena APNP [address] [place] [phone] PCP - General NURSE PRACTITIONER 12/04/21
--- OUTSIDE RECORDS SUMMARY | 2025-05-20 04:30 | XMS_ITS | Clinical Summary ---
Author Organization [facility] Address [address] [place] [phone] Phone Care Team Providers Care Laboratory Sampler Name Role Phone Unavailable Primary Care Provider [...] SMEAR 2019 INFLUENZA VACCINE (#1) 2025 Insurance [facility] BLUE ACCESS CHOICE [facility]
[2025-05-20] MEDS: ceFAZolin 2 GM in SODIUM CHLORIDE 0.9% IV 50 ML 100 ML IVPB (04:40)
[2025-05-20] MEDS: AZITHROMYCIN IV 500 MG in SODIUM CHLORIDE 0.9% IV 250 ML IVPB (04:40)
[2025-05-20 04:41] LABS: Hematocrit 40.3 % (37.0-47.0); Hemoglobin 13.3 g/dL (12.0-15.0); Immature Granulocyte Percent A 0.4 % (0-0.5); Lymphocytes Absolute Auto 3.01 K/mm3 (0.9-3.2); Mean Corpuscular HGB Conc 33.0 g/dl (32-36); Mean Corpuscular Hemoglobin 26.7 pg (26-34); Mean Corpuscular Volume 80.8 fl (80-100); Nucleated Red Blood Cells Absolute Auto 0.000 K/mm3 (0.0-0.012); Nucleated Red Blood Cells Perc 0.0 % (0.0-0.2); Platelet Count Result 181 k/mm3 (150-375); Red Blood Count 4.99 M/mm3 (4.2-5.4); White Blood Count 12.0 K/mm3 (4.5-10.0)
[2025-05-20] MEDS: LACTATED RINGERS 1,000 ML 125 ML IV CONT (04:42)
[2025-05-20 05:19] LABS: Syphilis IgG/IgM Antibody Non-Reactive (Nonreactive)
--- NOTE | 2025-05-20 05:22 | WPDANESEPP ---
Anes - Eval Pre Procedure Procedure: Operation Date: 05/23/25 12:00 Proposed Procedures p Primary Section with Bilateral Salpingectomy - Juan Manuel Rodas MD Date/Time: 05/20/25 05:22 Surgeon: Patel Pre Op Diagnosis: Contractions, leaking Patient Data Age: 35 Gender: F Height: Weight: Last Vital Signs Pulse 104 H 05/20/25 04:24 BP 138/90 05/20/25 04:24 Pulse Ox 100 05/20/25 04:40 Allergies Allergy/AdvReac Type Severity Reaction Status Date / Time No Known Allergies Allergy Verified 05/19/25 10:52 Home Medications ?Medication ?Instructions ?Recorded ?Confirmed ?Type vits 75-iron 28 mg-folic 1 pkg PO DAILY 04/07/24 05/19/25 History acid 800 mcg-omega3 440 mg oral pack aspirin 81 mg chewable tablet 162 mg PO DAILY 09/16/24 05/19/25 History docusate sodium 100 mg capsule 100 mg PO DAILY 11/10/24 05/19/25 History (Colace) loratadine 10 mg tablet (Claritin) 10 mg PO DAILY 03/16/25 05/19/25 History Laboratory Tests 05/20/25 04:35 WBC 12.0 H K/mm3 (4.5-10.0) RBC 4.99 M/mm3 (4.2-5.4) Hgb 13.3 g/dL (12.0-15.0) Hct 40.3 % (37.0-47.0) MCV 80.8 fl (80-100) MCH 26.7 pg (26-34) MCHC 33.0 g/dl (32-36) RDW 14.2 % (11.5-14.5) Plt Count 181 k/mm3 (150-375) MPV 13.0 H fl (7.4-10.4) Immature Gran % (Auto) 0.4 % (0-0.5) Neut % (Auto) 63.7 % (45.5-73.1) Lymph % (Auto) 25.0 % (18.3-44.2) [place] % (Auto) 9.3 H % (2.6-8.5) Eos % (Auto) 1.0 % (0-4.4) Baso % (Auto) 0.6 % (0.2-1.2) Lymph # (Auto) 3.01 K/mm3 (0.9-3.2) [place] # (Auto) 1.1 H K/mm3 (0.1-0.6) Eos # (Auto) 0.1 K/mm3 (0-0.3) Baso # (Auto) 0.1 K/mm3 (0.0-0.1) Abs Immat Gran (auto) 0.05 H K/mm3 (0.00-0.031) Absolute Neuts (auto) 7.7 H K/mm3 (1.3-6.7) Absolute Nucleated RBC 0.000 K/mm3 (0.0-0.012) Nucleated RBC % 0.0 % (0.0-0.2) Syphilis IgG/IgM Ab Non-reactive (Nonreactive) Blood Type A Positive Antibody Screen Pending Patient hx anesthesia problems: none Family hx anesthesia problems: none Results Review: All pre-operative results and documents have been reviewed as part of the pre-operative evaluation. [facility] Past Medical History Medical History LGA (large for gestational age) fetus Obesity PCOS (polycystic ovarian syndrome) Factor V Leiden Vaginal delivery History of miscarriage Allergies (normal spontaneous vaginal delivery) Surgical History Surgical History [place] teeth removed Family History Family History Grandparent Cerebrovascular accident Family history of Alzheimer's disease Family history of coronary artery disease Diabetes mellitus Hypertension Family history of type 2 diabetes mellitus Other Alcoholism Heart disease Social History Social History Smoking status: Former smoker Second hand tobacco smoke exposure: No Smoking end date: 08/18/20 Alcohol intake: current Substance use: never Substance use type: does not use Lack of Transportation: No Lack of Food: Never True Current Housing: I Have Housing Concerned About Future Housing: No Difficulty Paying Gas/Electric Bills: No Difficulty Paying for Meds: No Currently Unemployed: No Education: Master's Degree or Higher Living arrangements: with family Occupation/Education: occupation Gender identity (if verbalized by the patient): Female Sexual Orientation (if Verbalized by the Patient): Straight or Heterosexual Spiritual care concerns: No Exam Day of Procedure 05/20/25 05:22 Patient weight: obese Heart: regular rate and rhythm Airway: Mallampati scale class III Risks: ASA3 general with standard monitoring
--- NOTE | 2025-05-20 05:33 | PM.IMHP ---
H&P: HPI History of Present Illness Date/Time: 05/20/25 05:33 Chief Complaint: Contractions/leakage of fluid Narrative: Mague is a 35yo @ 39.2wks who presented with leakage of fluid since 314 and contractions. On arrival to L&D she was found to be 8cm. She voiced that she was scheduled for pLTCS + salpingectomy due to LGA and desire to proceed with both. She was re-examined and found to be complete with strong desire to push. She pushed one contraction and no descensus was noted (-4 station), and heart decelerations to the 70's for 3-4 min was noted. I then called for emergency . Review of Systems Constitutional: Constitutional: Denies chills, Denies fever(s) and Denies headache(s) Eyes: Eyes: Denies change in vision ENT: Denies headache(s) Cardiovascular: Cardiovascular: Denies chest pain and Denies dyspnea Respiratory: Respiratory: Denies dyspnea Gastrointestinal: Gastrointestinal: Reports abdominal pain Genitourinary: Genitourinary: Denies abnormal vaginal bleeding and Reports vaginal discharge Neurologic: Denies headache(s) Psychiatric: Psychiatric: Denies anxiety and Denies depression [facility] Past Medical History Medical History (Updated 05/20/25 @ 05:37 by Ramya Sweeney MD) LGA (large for gestational age) fetus Obesity Factor V Leiden PCOS (polycystic ovarian syndrome) Vaginal delivery History of miscarriage Allergies (normal spontaneous vaginal delivery) Surgical History Surgical History [place] teeth removed Family History Family History Grandparent Cerebrovascular accident Family history of Alzheimer's disease Family history of coronary artery disease Diabetes mellitus Hypertension Family history of type 2 diabetes mellitus Other Alcoholism Heart disease Social History Social History Smoking status: Former smoker Second hand tobacco smoke exposure: No Smoking end date: 08/18/20 Alcohol intake: current Substance use: never Substance use type: does not use Lack of Transportation: No Lack of Food: Never True Current Housing: I Have Housing Concerned About Future Housing: No Difficulty Paying Gas/Electric Bills: No Difficulty Paying for Meds: No Currently Unemployed: No Education: Master's Degree or Higher Living arrangements: with family Occupation/Education: occupation Gender identity (if verbalized by the patient): Female Sexual Orientation (if Verbalized by the Patient): Straight or Heterosexual Spiritual care concerns: No Meds Home Medications and Allergies Home Medications ?Medication ?Instructions ?Recorded ?Confirmed ?Type vits 75-iron 28 mg-folic 1 pkg PO DAILY 04/07/24 05/19/25 History acid 800 mcg-omega3 440 mg oral pack aspirin 81 mg chewable tablet 162 mg PO DAILY 09/16/24 05/19/25 History docusate sodium 100 mg capsule 100 mg PO DAILY 11/10/24 05/19/25 History (Colace) loratadine 10 mg tablet (Claritin) 10 mg PO DAILY 03/16/25 05/19/25 History Allergies Allergy/AdvReac Type Severity Reaction Status Date / Time No Known Allergies Allergy Verified 05/19/25 10:52 Vital Signs Vital Signs - 24 hr 05/20/25 04:24 05/20/25 04:27 05/20/25 04:33 Pulse Rate 104 H Blood Pressure 138/90 Pulse Oximetry 97 96 05/20/25 04:35 05/20/25 04:40 Pulse Rate Blood Pressure Pulse Oximetry 99 100 Exam Const: General: cooperative, acute distress (with contractions) moderate and obese Nutritional Appearance: obese Orientation/consciousness: patient oriented x3 Resp: Effort & Inspection: normal respiratory effort Cardio: Rate: regular rate GI: GI Palp: No abdominal tenderness : Other: FHT's: 120's/ mod jared/ + accels/ 3-4 min decels to 70s with pushing - cat 2 TOCO: ctxs q2min Cervix: 10100/-4 Membranes: SROM, clear 0315 Presentation: cephalic Skin: General skin exam: normal color Neuro: General: patient oriented x3 Extrem: General: normal to inspection Psych: Appearance: grossly normal Affect: normal affect Attitude: cooperative H&P: Results Labs Labs: Short CBC 05/20/25 Range/Units 04:35 WBC 12.0 H (4.5-10.0) K/mm3 Hgb 13.3 (12.0-15.0) g/dL Hct 40.3 (37.0-47.0) % Plt Count 181 (150-375) k/mm3 Assessment and Plan Assessment and plan (1) LGA (large for gestational age) fetus: Status: Acute (2) intolerance to labor, delivered, current hospitalization: Code(s): O77.9 - Labor and delivery complicated by stress, unspecified Status: Acute Plan - proceed with pLTCS + salpingectomy for LGA/ intolerance
--- NOTE | 2025-05-20 05:38 | P.PCNOB_ITS ---
OB - Delivery Note Procedure Delivery date: 05/20/25 Pre-op diagnosis: Decelerations Post-op Diagnosis: Same Induction method: None Delivery monitor: External FHT and External Uterine Prior to decision for section, ACOG/SMFM labor guidelines were considered and discussed with the patient and staff. Decision made to proceed with the section.: Yes Procedure Performed: Primary Primary branch: low cervical, transverse and Other (bilateral salpingectomy) Surgeon: Ramya Sweeney MD Anesthesia type: General Description of Procedure/Findings: She was counseled on all risks and benefits. She was emergently taken to the operating room where she was then prepped with DuraPrep, Kaye catheter was placed, and draped in the normal sterile fashion. She received 2g Ancef and a time out was performed. She was then placed under general endotracheal anesthesia. A Pfannenstiel incision was made in the skin and carried down to the underlying fascia. The fascia was nicked on either side of the midline and the fascial incision was extended laterally and superiorly bluntly in a [place] fashion. The rectus muscles were then in the midline and the peritoneum was entered bluntly. Once adequate exposure was obtained, a bladder blade was placed posteriorly. A low transverse incision was made on the lower uterine segment and clear fluid was noted. The occiput was easily brought to the hysterotomy and the head was easily delivered. The shoulders and body then followed without complications. The was delivered in less than 1 minute from time of intubation. The infant had spontaneous cry and the mouth and nose were bulb suctioned. The cord was clamped and cut and the infant was handed off to the awaiting pediatric team. A segment of the cord was collected for cord gases. The remaining cord blood was collected for typing. A Mobius retractor was then placed within the abdomen for better visualization. With Pitocin infusing, the placenta delivered with gentle traction on the cord without complications. The uterus was then cleared out of all clots and debris using a clean, moist lap. The uterus was noted to be atonic so Methergine was given. The hysterotomy was then repaired in a running, interlocking fashion using 0 Vicryl. The bilateral adnexa were examined and found to be normal. The left fallopian tube was grasped with a [place] and using the LigaSure device the mesosalpinx was serially clamped, coagulated, and transected until the proximal end of the fallopian tube was reached. The fallopian tube was then crossclamped with the LigaSure device, it was coagulated and then transected. The fallopian tube was then removed from the abdomen and sent to pathology. The same procedure was then performed on the right side without complication. The pelvis was cleared of all clots and fluid. The hysterotomy was examined and a small amount of bleeding was noted. A second layer imbricating suture was then made using 0 Vicryl. The hysterotomy was found to be hemostatic and good uterine tone was noted. The Mobius retractor was removed from the abdomen. The peritoneum, muscle, and fascia were examined and made hemostatic with bovie cautery. The fascia was then repaired using a 0 Vicryl suture in a running fashion. The subcutaneous tissue was then irrigated and made hemostatic with bovie cautery. The subcutaneous tissue was then reapproximated using 2-0 Vicryl. The skin was then closed using 4-0 Monocryl in a running subcuticular fashion. A Mepilex dressing was placed over the incision. Sponge, lap, needle and instrument counts were correct at the end of the procedure x2. She was awoke from general anesthesia without issue. The patient tolerated the procedure well and was taken to recovery in a stable condition. Estimated Blood Loss: 285 Urine Output: 150 Pathology: Yes (placenta and left & right fallopian tubes) Complications: No immediate complications Condition: Stable Disposition: Floor [place] Baby Date of : 05/20/25 Time of : 04:53 Gestational Age by Date: 39 (.2) Infant gender: Male Weight (pounds): 9 Weight (ounces): 10 presentation: vertex position: Right Occiput Transverse Placenta delivery description: Expressed Cord Vessel Description: 3 Vessels score one minute: 8 score five minutes: 9
--- NOTE | 2025-05-20 05:38 | WPDHPUPDATE1 ---
History and Physical Update Update Date/Time: 05/20/25 05:38 History and Physical has been reviewed, including an updated exam of the patient. There are NO changes in the patient's condition. Risks, benefits, and alternatives have been discussed and questions answered. Patient agrees to proceed with procedure.
[2025-05-20] MEDS: KETOROLAC 15 MG/ML VIAL (*BKC) IV PUSH ×2 (06:18→17:25)
[2025-05-20] MEDS: fentaNYL CITRATE INJ (*CRX) 100 MCG/2 ML VIAL 25 MCG IV PUSH ×2 (06:47→07:44)
--- NOTE | 2025-05-20 06:47 | S_PTH ---
PATIENT: Mague Veras LOC: ANHOB2 U#:[id number] AGE/SX: 35/F ROOM: 288 RE05/20/[address]: Ramya Sweeney MD : 1990 BED: 00 DIS: 05/22/2025 SPEC #: [id number] RECD: 05/23/25 06:59 STATUS: GINNY REQ #: [id number] JOLLY: 05/20/25 06:[address]: Ramya Sweeney DEPT: [facility] Surgical RECD BY: Sybil Vega ENTERED: 05/23/25 07:00 SP TYPE: Surgical OTHR DR: Juan Manuel Rodas MD UNKNOWN,DOCTOR Tissues: A - Placenta B - Fallopian Tube Single C - Fallopian Tube Single Procedures: Gross and Microscopic Level 2 Hematoxylin and Eosin Stain Gross and Microscopic Level 5
--- NOTE | 2025-05-20 06:59 | LDADM ---
This patient, Mague Veras, was admitted to Labor/Delivery/Recovery 120 on 05/20/25 at 04:15. Plans for labor, pain management and were discussed with patient. Patient/family oriented to hospital policies and general routines including ID bracelet, bed and alarms, visiting hours, pain management, procedures, bathroom and other care routines, personal items, smoking policy, room service/diet and guest tray routines, infant security routines, and visiting hours. Patient/Family are encouraged to report perceived risks to care and to ask questions if they do not understand what they are told or what they should do. See OBIX for further documentation.
[2025-05-20] MEDS: HYDROmorphon 0.2MG/ML PCA(*CRX 6 MG/30 ML PCA.VIAL 1 MG IV CONT ×2 (07:09→22:49)
--- OUTSIDE RECORDS SUMMARY | 2025-05-20 07:30 | XMS_ITS | Encounter Summary ---
Author Organization [facility] Address [address] [place] [address] Care Team Providers Care Securities Vault Supervisor Name Role Phone Unavailable Primary Care Provider Unavailabl e Reason for Referral * (Routine) - Open Specialty Diagnoses / Procedures Referred By Contac t Referred To Contact Diagnoses Multigravida of advanced maternal age in second trimester (HCC) History of premature rupture of membranes (PROM) in previous , currently in second trimester ([facility]) History of pre-eclampsia Encounter for other screening follow-up ([facility]) Obesity affecting in second trimester, unspecified obesity type ([facility]) Procedures Biophysical Profile w NST Juan Manuel Singh MD [address] [facility] [address] [facility] [address] [place] [address] Phone: tel: fax: Referral ID Status Reason Start Date Expiration Date Visits Re quested Visits Authorized [id number] Open 05/16/2025 05/16/2026 1 1 Reason for Visit * Reason Comments Ultrasound Non-stress Test Maternal Medicine Encounter Details Date Type Department Care Team (Late st Contact Info) Description 05/20/2025 7:30 AM CDT Hospital Encounter [facility] [address] [place] [address] Parvez Vanegas DO [address] [facility] [address] [place] [id number] LEGAL COUNSEL Social History Tobacco Use Types Packs/Day Years [...] on file documented as of this encounter Plan of Treatment Scheduled Orders Name Type Priority Associated Diagnoses Orde r Schedule Biophysical Profile w NST MATRNL MED Routine Multigravida of advanced maternal age in second trimester ([facility]) History of premature rupture of membranes (PROM) in previous , currently in second trimester ([facility]) History of pre-eclampsia Encounter for other screening follow-up ([facility]) Obesity affecting in second trimester, unspecified obesity type ([facility]) 1 Occurrences starting 05/16/2025 until 05/16/2026 documented as of this encounter Visit Diagnoses Diagnosis Factor V Leiden mutation affecting ([facility])- Primary Multigravida of advanced maternal age in second trimester ([facility]) History of premature rupture of membranes (PROM) in previous , currently in second trimester ([facility]) History of pre-eclampsia Encounter for other screening follow-up ([facility]) Obesity affecting in second trimester, unspecified obesity type ([facility]) documented in this encounter
[2025-05-20] MEDS: OXYTOCIN 30 UNITS/NS 500 ML 30 UNITS/500 ML BAG 125 UNITS IV CONT (09:00)
--- NOTE | 2025-05-20 10:17 | OBPPTRN ---
0903-Patient transferred to post room #288 via stretcher. Support person present. Oriented to unit, room, information board, rooming in, admission packet and security measures. Patient verbalizes understanding.
[2025-05-20] MEDS: ACETAMINOPHEN 500 MG TABLET 1000 MG PO ×2 (11:00→17:25)
[2025-05-20] MEDS: LORATADINE 10 MG TABLET PO (11:01)
[2025-05-20] MEDS: SIMETHICONE 80 MG TAB.CHEW PO ×3 (11:01→17:24)
[2025-05-20] MEDS: MULTIVIT/MIN/PREN/FOL AC/IRON TABLET 1 TAB PO (11:01)
[2025-05-20] MEDS: DOCUSATE SODIUM 100 MG CAPSULE PO ×2 (11:01→17:26)
[2025-05-20] MEDS: ONDANSETRON INJ 4 MG/2 ML VIAL IV PUSH (12:56)
--- NOTE | 2025-05-20 13:23 | PC.NURSE ---
1310. Introductions were made, then consulted with patient to assess needs related to . Mother stated she would like to pump and feed at time, and she requested we measure her nipples for the correct size flange. Discussed with mother her plans to feed her and the experience so far. Encouraged mother to express any questions or concerns she has regarding feedings. Advised her to call out for a latch check or if she needs assistance waking or positioning baby. Reviewed the blue feeding worksheet for required output and feeding at least 8-12 times every 24 hours. Resources provided for inpatient and outpatient services with the feeding sheet, mom/baby guide, and name/number written on the communication board. Mother voiced understanding of information and will call if there is a request for assistance. Reported to the Primary RN?
[2025-05-20] MEDS: DEXTROSE 5%/0.45% SOD CHL 1,000 ML 125 ML IV CONT ×2 (13:38→20:00)
[2025-05-21] VITALS (7 sets, daily range): BP systolic 117–134; BP diastolic 65–83; PULSE 80–100; RESP 18; TEMP 36.6–37.1; O2SAT 98–100
[2025-05-21 04:31] LABS: Hematocrit 31.1 % (37.0-47.0); Hemoglobin 10.0 g/dL (12.0-15.0); Immature Granulocyte Percent A 0.5 % (0-0.5); Lymphocytes Absolute Auto 1.90 K/mm3 (0.9-3.2); Mean Corpuscular HGB Conc 32.2 g/dl (32-36); Mean Corpuscular Hemoglobin 26.7 pg (26-34); Mean Corpuscular Volume 83.2 fl (80-100); Nucleated Red Blood Cells Absolute Auto 0.000 K/mm3 (0.0-0.012); Nucleated Red Blood Cells Perc 0.0 % (0.0-0.2); Platelet Count Result 130 k/mm3 (150-375); Red Blood Count 3.74 M/mm3 (4.2-5.4); White Blood Count 11.2 K/mm3 (4.5-10.0)
[2025-05-21] MEDS: KETOROLAC 15 MG/ML VIAL (*BKC) IV PUSH ×2 (05:00)
[2025-05-21] MEDS: oxyCODONE HCL (*CRX) 5 MG TAB IR PO ×2 (05:00→09:52)
[2025-05-21] MEDS: ACETAMINOPHEN 500 MG TABLET 1000 MG PO ×5 (05:00→23:30)
--- NOTE | 2025-05-21 07:54 | P.PNOB_ITS ---
OB - PN: Subj Subjective Date/time seen: 05/21/25 08:16 Narrative: POD#1 Mague reports doing well today. 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 Her pain is controlled. She is tolerating regular diet, voiding, passing gas, and ambulating without issues. She denies any issues with her incision. She is pumping/supplementing. She would like her son circumcised. OB - PN: Obj Data Labs 05/21/25 04:23 Labs: Laboratory Results - last 24 hr 05/20/25 04:35 WBC 12.0 H RBC 4.99 Hgb 13.3 Hct 40.3 MCV 80.8 MCH 26.7 MCHC 33.0 RDW 14.2 Plt Count 181 MPV 13.0 H Immature Gran % (Auto) 0.4 Neut % (Auto) 63.7 Lymph % (Auto) 25.0 [place] % (Auto) 9.3 H Eos % (Auto) 1.0 Baso % (Auto) 0.6 Lymph # (Auto) 3.01 [place] # (Auto) 1.1 H Eos # (Auto) 0.1 Baso # (Auto) 0.1 Abs Immat Gran (auto) 0.05 H Absolute Neuts (auto) 7.7 H Absolute Nucleated RBC 0.000 Nucleated RBC % 0.0 Syphilis IgG/IgM Ab Non-reactive Blood Type A Positive Antibody Screen Negative OB - PN A/P Assessment and Plan (1) S/P primary low transverse : Code(s): Z98.891 - History of uterine scar from previous surgery Status: Acute (2) Status post bilateral salpingectomy: Code(s): Z90.79 - Acquired absence of other genital organ(s) Status: Acute Plan day: 1 Plan: routine care Comments: - PO pain meds - Regular diet - Ambulation and hydration encouraged - Continue putting baby to breast q2-3hr Time Spent With Patient Time: Total time spent is greater than 50% in coordination of care (as documented) at patient's floor/unit and/or counseling patient: Review of Systems 2 Constitutional: Constitutional: Denies chills, Denies fever(s) and Denies headache(s) Eyes: Eyes: Denies change in vision ENT: Denies dizziness and Denies headache(s) Cardiovascular: Cardiovascular: Denies chest pain, Denies palpitations and Denies dyspnea Respiratory: Respiratory: Denies cough and Denies dyspnea Gastrointestinal: Gastrointestinal: Denies nausea and Denies vomiting Genitourinary: Comments: normal bleeding Neurologic: Denies dizziness and Denies headache(s) Endocrine: Endocrine: Denies palpitations Exam 2 Const: General: cooperative, comfortable and no acute distress O rientation/consciousness: patient oriented x3 Resp: Effort & Inspection: normal respiratory effort Auscultation: clear to auscultation bilaterally Cardio: Rate: regular rate GI: Inspection: non-distended and incision (covered with clean dressing) GI Palp: Yes abdominal tenderness (appropriate) and Yes Soft to palpation A uscultation: normal bowel sounds : Other: fundus firm Skin: General skin exam: normal color Neuro: General: patient oriented x3 Extrem: General: normal to inspection Psych: Appearance: grossly normal Affect: normal affect Attitude: c ooperative
[2025-05-21] MEDS: SIMETHICONE 80 MG TAB.CHEW PO ×3 (09:52→17:21)
[2025-05-21] MEDS: MULTIVIT/MIN/PREN/FOL AC/IRON TABLET 1 TAB PO (09:52)
[2025-05-21] MEDS: DOCUSATE SODIUM 100 MG CAPSULE PO ×2 (09:53→17:23)
[2025-05-21] MEDS: LORATADINE 10 MG TABLET PO (09:53)
--- NOTE | 2025-05-21 10:00 | PC.NURSE ---
Introductions were made, then consulted with patient to assess needs related to . Discussed with mother her?plans to feed?her and the?experience so far. She is pumping and bottle feeding with no intention to put baby to breast. She is using her [place] wearable pump. Recommended she pump for 15 minutes every 3 hours. Educated on expected milk volumes at his time and the importance of regular breast stimulation for a good supply. Lanolin given per patient request. Resources provided for inpatient and outpatient services with the feeding sheet, mom/baby guide and name written on the communication board. Mother voiced understanding of information and will call if there is a request for assistance. Reported to the Primary RN.
[2025-05-21] MEDS: IBUPROFEN 600 MG TABLET PO ×3 (10:59→23:30)
[2025-05-22] MEDS: ACETAMINOPHEN 500 MG TABLET 1000 MG PO ×2 (05:10→11:33)
[2025-05-22] MEDS: IBUPROFEN 600 MG TABLET PO ×2 (05:10→11:33)
[2025-05-22 08:00] VITALS: BP 135/86; PULSE 90; RESP 16; TEMP 36.8; O2SAT 98
--- NOTE | 2025-05-22 08:02 | PC.NURSE ---
Patient was given the opportunity to view the discharge video Mother & Baby Care, The First Two Weeks and to ask questions. Patient declined viewing the video and has been given the mother/baby guide for home reference.
[2025-05-22] MEDS: SIMETHICONE 80 MG TAB.CHEW PO ×2 (08:20→11:34)
[2025-05-22] MEDS: LORATADINE 10 MG TABLET PO (08:20)
[2025-05-22] MEDS: DOCUSATE SODIUM 100 MG CAPSULE PO (08:21)
[2025-05-22] MEDS: MULTIVIT/MIN/PREN/FOL AC/IRON TABLET 1 TAB PO (08:21)
--- NOTE | 2025-05-22 08:48 | PM.OBPNVD ---
OB - PN: Subj Subjective Date/time seen: 05/22/25 08:48 Narrative: POD#1 Mague reports doing well today. 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 Her pain is controlled. She is tolerating regular diet, voiding, passing gas, and ambulating without issues. She denies any issues with her incision. She is breast feeding. She would like to go home today. OB - PN: Obj Data Labs 05/21/25 04:23 Labs: Laboratory Results - last 24 hr 05/21/25 04:23 WBC 11.2 H RBC 3.74 L Hgb 10.0 L D Hct 31.1 L MCV 83.2 MCH 26.7 MCHC 32.2 RDW 14.5 Plt Count 130 L MPV 12.2 H Immature Gran % (Auto) 0.5 Neut % (Auto) 73.9 H Lymph % (Auto) 17.0 L [place] % (Auto) 7.9 Eos % (Auto) 0.4 Baso % (Auto) 0.3 Lymph # (Auto) 1.90 [place] # (Auto) 0.9 H Eos # (Auto) 0.1 Baso # (Auto) 0.0 Abs Immat Gran (auto) 0.06 H Absolute Neuts (auto) 8.3 H Absolute Nucleated RBC 0.000 Nucleated RBC % 0.0 OB - PN A/P Assessment and Plan (1) S/P primary low transverse : Code(s): Z98.891 - History of uterine scar from previous surgery Status: Acute (2) Status post bilateral salpingectomy: Code(s): Z90.79 - Acquired absence of other genital organ(s) Status: Acute Plan day: 2 Plan: routine care and discharge home Comments: - PO pain meds - Regular diet - Ambulation and hydration encouraged - Continue putting baby to breast q2-3hr - Pelvic rest; take meds as prescribed - ER return precautions: fever, n/v/abd pain, bleeding, HTN Time Spent With Patient Time: Total time spent is greater than 50% in coordination of care (as documented) at patient's floor/unit and/or counseling patient: Review of Systems Constitutional: Constitutional: Denies chills, Denies fever(s) and Denies headache(s) Eyes: Eyes: Denies change in vision ENT: Denies dizziness and Denies headache(s) Cardiovascular: Cardiovascular: Denies chest pain, Denies palpitations and Denies dyspnea Respiratory: Respiratory: Denies cough and Denies dyspnea Gastrointestinal: Gastrointestinal: Denies nausea and Denies vomiting Genitourinary: Comments: normal bleeding Neurologic: Denies dizziness and Denies headache(s) Endocrine: Endocrine: Denies palpitations Exam Const: General: cooperative, comfortable and no acute distress Orientation/consciousness: patient oriented x3 Resp: Effort & Inspection: normal respiratory effort Auscultation: clear to auscultation bilaterally Cardio: Rate: regular rate GI: Inspection: non-distended and incision (covered with clean dressing) GI Palp: Yes abdominal tenderness (appropriate) and Yes Soft to palpation Auscultation: normal bowel sounds : Other: fundus firm Skin: General skin exam: normal color Neuro: General: patient oriented x3 Extrem: General: normal to inspection Psych: Appearance: grossly normal Affect: normal affect Attitude: cooperative
--- NOTE | 2025-05-22 09:48 | PM.OBDSVD ---
DS: Admitting Diagnosis Discharge Date 05/22/25 Admitting Diagnosis Active labor LGA DS: Discharge Diagnosis Discharge Diagnosis (1) LGA (large for gestational age) fetus: Status: Acute (2) intolerance to labor, delivered, current hospitalization: Code(s): O77.9 - Labor and delivery complicated by stress, unspecified Status: Acute (3) S/P primary low transverse : Code(s): Z98.891 - History of uterine scar from previous surgery Status: Acute (4) Status post bilateral salpingectomy: Code(s): Z90.79 - Acquired absence of other genital organ(s) Status: Acute OB - DS: Summary OB Procedures : Ultrasound OB Procedures Intrapartum: low cervical, transverse and Other (bilateral salpingectomy) OB Procedures: : None Peripartum Data Infant Delivery Method: Section Procedures: Procedures Operation Date: 05/20/25 04:40 Actual Procedure Side Surgeon p Section Not Applicable Ramya Sweeney MD Operation Date: 05/23/25 12:00 <No data on this case meets the specified criteria> complications: none [place] 1: Gender: Male Disposition of : home Status at Discharge Functional status at discharge: independent ambulation Overall status at discharge: patient is back to baseline Time Spent with Patient Time attestation: Total time spent providing and/or coordinating discharge services: Exam Const: General: cooperative, comfortable, no acute distress and obese Nutritional Appearance: obese Orientation/consciousness: patient oriented x3 Resp: Effort & Inspection: normal respiratory effort Auscultation: clear to auscultation bilaterally Cardio: Rate: regular rate GI: Inspection: non-distended and incision (covered with clean dressing) GI Palp: No abdominal tenderness and Yes Soft to palpation Auscultation: normal bowel sounds : Other: fundus firm Skin: General skin exam: normal color Neuro: General: patient oriented x3 Extrem: General: normal to inspection Psych: Appearance: grossly normal Affect: normal affect Attitude: cooperative DS: Data Data Completed and Pending Pending studies at discharge: Pending at discharge 05/20/25 06:47 Surgical [PTH] Routine Discharge Plan Discharge Attending physician on discharge: Ramya Sweeney Discharging Clinician: Ramya Sweeney Patient Disposition: Home Activity: may shower and pelvic rest Diet: regular Discharge Instructions: Remove dressing on 05/26/25 No lifting over 15 pounds Call office/go to ER with heavy bleeding, fever over 100.4 Patient Instructions: Antibiotic Form Patient Language: Czech Stand Alone Forms: General Discharge Information Follow-up/Referrals: Juan Manuel Rodas MD [Physician, [employer]] - Call for Appointment Discharge Medications: New acetaminophen 500 mg Tablet 1,000 mg PO Q6H Qty: 60 0RF ibuprofen 600 mg Tablet 600 mg PO Q6HR Qty: 40 0RF oxycodone 5 mg Tablet 5 mg PO Q4H PRN (Reason: Pain Rated 4-10) Qty: 18 0RF Continued 75-iron [id number] mg-mcg-mg Combo Pack 1 pkg PO DAILY loratadine [Claritin] 10 mg tablet 10 mg PO DAILY docusate sodium [Colace] 100 mg capsule 100 mg PO DAILY Qty: 90 0RF Discontinued aspirin 81 mg tablet,chewable 162 mg PO DAILY Date of admission: 05/20/25 04:15 Primary Care Provider: UNKNOWN,DOCTOR Admitting Provider: Juan Manuel Rodas Attending physician on admission: Juan Manuel Rodas Condition: Stable
[2025-05-22] MEDS: INFLUENZA VACCINE 45 MCG/0.5 ML SYRINGE IM (11:34)
[2025-05-23 09:08] VITALS: BP 132/82; PULSE 86; RESP 18; TEMP 36.6; O2SAT 100
== END 2025-05-22 13:00 | disposition home or self-care (01) | DRG 784 ==
LOC: ANHLDR 06:57 → ANHOB2 05-21 09:35 → ANHLDR 05-24 08:42
PROVIDERS: Admitting Provider Obstetrics & Gynecology; Visit Provider Obstetrics & Gynecology
PROC: 10D00Z1 Extraction of Products of Conception, Low, Open Approach (ICD-10-PCS; CPT 59514; principal; 2025-05-20 04:40)
DX: O99.12 Other diseases of the blood and blood-forming organs and certain disorders involving the immune mechanism complicating childbirth (principal); D68.51 Activated protein C resistance; Z37.0 Single live birth; Z3A.39 39 weeks gestation of pregnancy; Z30.2 Encounter for sterilization; O36.63X0 Maternal care for excessive fetal growth, third trimester, not applicable or unspecified; O76 Abnormality in fetal heart rate and rhythm complicating labor and delivery; Z23 Encounter for immunization
CPT/HCPCS: 36415; 85025; 86593; 86850; 86900; 86901; 88302; 88307; 90471; 90656; J0690; A9270; G0008; J0330; J0456; J1171; J1885; J2210; J2405; J2590; J2704; J3010; J7050; J7120